=== PATIENT | female | born 1960 | race African-American/Black ===

== ENCOUNTER 2020-04-07 13:09 | Outpatient (REF) | payer OTHER, SELFPAY ==
--- NOTE | 2020-04-07 | MM_ITS ---
EXAMINATION: MM SCREENING DIGITAL BREAST TOMOSYNTHESIS, BILATERAL CLINICAL INFORMATION: Screening. Asymptomatic. The lifetime risk of breast cancer based on the Tyrer-Cuzick Model is 10%. COMPARISON: Mammography: 04/02/2019, 03/18/2018, 02/11/2017 TECHNIQUE: Digital breast tomosynthesis is performed in both the craniocaudal and mediolateral oblique views along with computer-aided detection (CAD). Synthesized 2D images are generated from the tomosynthesis. FINDINGS: There are scattered areas of fibroglandular density (ACR BI-RADS breast composition Category b). Breast tissue composition borders on predominantly fatty. Background stromal densities are stable. Again, there is a dermal lesion at the posterior inferior left breast. Neither breast shows interval mass or architectural abnormality or abnormal calcifications. No significant changes. IMPRESSION: No mammographic evidence of malignancy. ASSESSMENT: BI-RADS 2: Benign RECOMMENDATION: Routine annual mammography screening. This patient's information was entered into a reminder system with a target due date for their next mammogram.
== END 2020-04-07 13:10 | disposition home or self-care (01) ==
LOC: HO.MAMMO 13:09
PROVIDERS: PCP Internal Medicine Geriatric Medicine; Visit Provider Internal Medicine Geriatric Medicine
DX: Z12.31 Encounter for screening mammogram for malignant neoplasm of breast (principal)
CPT/HCPCS: 77063; 77067; 78014

== ENCOUNTER 2020-06-06 15:17 | Outpatient (REF) | payer OTHER, SELFPAY ==
[2020-06-07 09:22] LABS: BV Int Neg Control Negative (Negative); BV Int Pos Control Positive (Positive)
[2020-06-11 04:29] LABS: CT PCR NOT DETECTED (Not Detect.); NG PCR NOT DETECTED (Not Detect.)
== END 2020-06-06 15:18 | disposition home or self-care (01) ==
LOC: HO.LAB 15:17
PROVIDERS: Visit Provider Advanced Practice Midwife
DX: N89.8 Other specified noninflammatory disorders of vagina (principal); N90.89 Other specified noninflammatory disorders of vulva and perineum
CPT/HCPCS: 87480; 87491; 87510; 87591; 87660; 99212

== ENCOUNTER 2020-06-15 13:54 | Outpatient (REF) | payer OTHER, SELFPAY ==
[2020-06-21 20:18] LABS: HPV mRNA E6/E7 rflx Not Detected (Not Detected)
== END 2020-06-15 13:55 | disposition home or self-care (01) ==
LOC: HO.LAB 13:54
PROVIDERS: Visit Provider Obstetrics & Gynecology
DX: Z01.419 Encounter for gynecological examination (general) (routine) without abnormal findings (principal); Z78.0 Asymptomatic menopausal state
CPT/HCPCS: 87624; 87625; 88142

== ENCOUNTER → 2020-07-29 10:38 | Outpatient (REF) | payer OTHER, SELFPAY ==
--- NOTE | 2020-07-29 10:46 | ECG_ITS ---
Test Reason : CP Blood Pressure : / mmHG Vent. Rate : 068 BPM Atrial Rate : 068 BPM P-R Int : 128 ms QRS Dur : 128 ms QT Int : 430 ms P-R-T Axes : 038 -45 023 degrees QTc Int : 457 ms Normal sinus rhythm Left axis deviation Right bundle branch block Abnormal ECG When compared with ECG of 15-JUL-2019 16:46, No significant change was found Referred By: Christiane Ashton Electronically Signed By:Diallo Martinez
== END ==
LOC: HO.CARD 10:38
PROVIDERS: Absent Provider Internal Medicine Geriatric Medicine; PCP Internal Medicine Geriatric Medicine; Visit Provider Registered Nurse
DX: K21.9 Gastro-esophageal reflux disease without esophagitis (principal); R07.9 Chest pain, unspecified; I45.10 Unspecified right bundle-branch block; R94.31 Abnormal electrocardiogram [ECG] [EKG]; R11.0 Nausea; R42 Dizziness and giddiness
CPT/HCPCS: 93005

== ENCOUNTER → 2020-08-31 12:39 | Outpatient (BNVA) | payer OTHER, SELFPAY | PROVIDERS: PCP Internal Medicine Geriatric Medicine; Visit Provider Obstetrics & Gynecology | DX: Z13.89 Encounter for screening for other disorder (principal) | CPT/HCPCS: Q3014 ==

== ENCOUNTER 2021-05-01 14:14 | Outpatient (REF) | payer OTHER, SELFPAY ==
--- NOTE | ~2021-05-01 | MM_ITS ---
EXAMINATION: MM SCREENING DIGITAL BREAST TOMOSYNTHESIS, BILATERAL CLINICAL INFORMATION: Screening. Asymptomatic. The lifetime risk of breast cancer based on the Tyrer-Cuzick Model is 10%. COMPARISON: Mammography: 04/07/2020, 04/02/2019, 03/18/2018 TECHNIQUE: Digital breast tomosynthesis is performed in both the craniocaudal and mediolateral oblique views along with computer-aided detection (CAD). Synthesized 2D images are generated from the tomosynthesis. FINDINGS: There are scattered areas of fibroglandular density (ACR BI-RADS breast composition Category b). There are no significant masses, abnormal calcifications, or other abnormalities. The axilla are unremarkable. There is a known chronic dermal lesion posterior 6:00 left breast, slightly larger on current exam, measuring 1.4 cm compared with 1.0 cm in 2018. MM/MM tomosynthesis screening BI IMPRESSION: 1. No mammographic evidence of malignancy. 2. Chronic dermal lesion posterior inferior left breast. ASSESSMENT: BI-RADS 2: Benign RECOMMENDATION: 1. Dermal lesion may be managed based on the clinical impression as needed. 2. Otherwise, routine annual mammography screening. This patient's information was entered into a reminder system with a target due date for their next mammogram.
== END 2021-05-01 14:15 | disposition home or self-care (01) ==
LOC: HO.MAMMO 14:14
PROVIDERS: PCP Internal Medicine Geriatric Medicine; Visit Provider Internal Medicine Geriatric Medicine
DX: Z12.31 Encounter for screening mammogram for malignant neoplasm of breast (principal)
CPT/HCPCS: 77063; 77067

== ENCOUNTER → 2021-06-20 13:49 | Outpatient (BNVA) | payer OTHER, SELFPAY | PROVIDERS: PCP Internal Medicine Geriatric Medicine; Visit Provider Obstetrics & Gynecology ==

== ENCOUNTER → 2022-02-20 15:24 | Outpatient (BNVA) | payer OTHER, SELFPAY | PROVIDERS: PCP Internal Medicine Geriatric Medicine; Visit Provider Surgery | DX: N60.02 Solitary cyst of left breast (principal); L72.0 Epidermal cyst; Z79.899 Other long term (current) drug therapy | CPT/HCPCS: 99202 ==

== ENCOUNTER 2022-03-21 05:55 | Day surgery (SDC) | payer OTHER, SELFPAY ==
[2022-03-15 16:41] VITALS: BMI 30.1
[2022-03-21] VITALS (9 sets, daily range): BP systolic 121–144; BP diastolic 67–96; PULSE 54–71; RESP 12–17; TEMP 36.1–36.7; O2SAT 97–100; BMI 29.9
[2022-03-21] MEDS: Lactated Ringers 1,000 ML 100 ML IVCONT (06:48)
--- NOTE | 2022-03-21 07:20 | HO.ANESPROP2 ---
HPI - Anesthesia Eval Consult details Narrative: 61yo female patient for excision of cyst chest and cyst Left breast PMFSH Active Problems Active Problems: All Active Problems (Updated 03/21/22 @ 06:54 by Linda Baer) Vaginal itching (Acute) Vaginal discharge (Acute) Vulvar irritation (Acute) Well woman exam (Acute) Lump of skin (Acute) Cystocele with rectocele (Acute) Epidermal inclusion cyst (Acute) SUZAN. Uses CPAP machine Past Medical History Medical History Asthma Cataract High cholesterol History of anxiety History of depression Hypertension Migraine headache On beta vaishnavi at home Family History Family History Sister History of breast cancer Family history of problems with anesthesia: No Surgical History Surgical History History of cataract removal with insertion of prosthetic lens Hx of tubal ligation History of Problems with Anesthesia: No Social History Social History Alcohol intake: never Patient Tobacco Use Status: Never used Tobacco Use of substances other than those prescribed or required for medical reasons: No Are you DNR?: No Advance Directives: No Advance Directives Information Provided: Yes Sexual orientation: Straight/Heterosexual Gender identity: Female Meds Allergies Allergy/AdvReac Type Severity Reaction Status Date / Time lisinopril [LISINOPRIL] Allergy Unknown COUGH Verified 03/21/22 06:04 Active Medications: Current Medications Lactated Ringer's (Lr) 1,000 mls @ 100 mls/hr IVCONT .Q10H COTY Last Admin: 03/21/22 06:48 Dose: 100 mls/hr Home Medications Medication Instructions Recorded Confirmed Last Taken Type albuterol sulfate 90 mcg/actuation 90 mcg inhalation PRN Wheezing 06/06/20 02/20/22 03/21/22 05:15 History aerosol inhaler buspirone 10 mg tablet 5 mg PO BID 06/06/20 03/15/22 03/21/22 05:15 History fluticasone propionate 50 2 spray intranasal DAILY 06/06/20 03/15/22 Unknown History mcg/actuation nasal spray,suspension loratadine 10 mg tablet 10 mg PO DAILY 06/06/20 03/15/22 Unknown History losartan 50 mg tablet 50 mg PO DAILY 06/06/20 03/21/22 03/20/22 23:30 History meclizine 12.5 mg tablet 12.5 mg PO TID 06/06/20 03/15/22 Unknown History metoprolol succinate 25 mg 25 mg PO DAILY 06/06/20 03/15/22 03/21/22 05:15 History tablet,extended release 24 hr montelukast 10 mg tablet 10 mg PO DAILY 06/06/20 03/15/22 Unknown History pravastatin 40 mg tablet 40 mg PO DAILY 06/06/20 03/15/22 Unknown History sertraline 100 mg tablet 50 mg PO DAILY 06/06/20 03/15/22 03/21/22 05:15 History acetaminophen 500 mg capsule 500 mg PO Q6H PRN Pain 06/20/21 03/15/22 03/21/22 05:15 History Exam Exam Date and Time: March 21, 2022 0720 Height,Weight and Vital Signs: Height 5 ft 5 in Weight 81.647 kg Last Vital Signs Temp 98.0 F 03/21/22 06:06 Pulse 71 03/21/22 06:06 Resp 16 03/21/22 06:06 BP 144/96 H 03/21/22 06:06 Pulse Ox 98 03/21/22 06:06 O2 Del Method 03/21/22 06:06 Airway Mallampati Class: II TM Dist: >3cm Neck ROM: Full Loose/Missing/Broken Teeth: Yes (Missing 1 top right, 1 bottom right) Heart: RRR Lungs: CTAB Assessment and Plan Assessment Anesthesia Assessment: Anesthesia Plan Discussed and Chart Reviewed Final Anesthetic Review Family History of Problems with Anesthesia: No History of Problems with Anesthesia: No NPO: Yes ASA Class: III Final Preanesthetic Review: No Changes in Pt Med Stat, Meds/Allgs Chart Reviewed, Consent Obtained/Reviewed and Anes Risks/Benef Reviewed Patient Risk: Intermediate Procedure Risk: Low Assessment/Block/Sedation in SS: Assess/Block/Sedation-SS Anesthetic Plan Anesthetic Plan: GA Disposition: Standard PACU
--- NOTE | 2022-03-21 08:37 | P.OP_ITS ---
Operative Note Operative Note Date of Service: 03/21/22 Narrative: Preoperative diagnosis: Cyst of mid chest and left chest Postoperative diagnosis: same Procedure: excision of cyst mid chest and left chest Surgeon: Jayden Campo MD Novelty Balloon Assembler And Packer: EMELYN Rodrigues Anesthesia: general LMA Indications for procedure: 61-year-old female presenting with a gradually enlarging cyst which is painful located in the mid chest over the sternum and below the left breast in the chest wall left side. Operative findings: Inflammatory changes noted mid chest wall lesion in the surrounding fat. No evidence of abscess however. Both lesions measured approximately 2 cm in diameter. Specimen: Cyst mid chest and left chest wall Estimated blood loss: 5 mL Complications: none Procedure details: patient was brought to the OR placed in a supine position. After administering general anesthesia the patient's chest was prepped with ChloraPrep and draped in a sterile fashion. A surgical time-out was called the consent confirmed. Patient received preoperative antibiotics and Venodyne boots were in place. Local anesthesia was used to anesthetize both locations. Beginning in the mid chest elliptical incision oriented longitudinally was then created. A small dermal nevus was also overlying the cyst was included in the excision. Incision was carried out through subcutaneous tissue and around the cyst wall. the lesion was completely excised and sent to pathology for further examination. After assuring adequate hemostasis with electrocautery the deep subcutaneous tissue and dermis reapproximated using interrupted 3-0 Polysorb sutures. Skin was then closed using interrupted 4-0 nylon sutures. Attention was then directed to the left chest were again elliptical incision was created oriented transversely. Incision was carried out through subcutaneous tissue and around the cyst wall. The cyst was completely excised and sent to pathology for further examination. Hemostasis was assured using electrocautery. Dermis was then reapproximated using interrupted 3-0 Polysorb sutures. Skin was closed using interrupted 4-0 nylon sutures. Sterile dressings were then applied. The patient tolerated the procedure well. Sponge, instrument, and needle counts reported as correct. The patient was transferred to PACU in stable condition.
== END 2022-03-21 11:20 | disposition home or self-care (01) ==
PROVIDERS: PCP Surgery; Visit Provider Surgery
PROC: (CPT 11402; principal; 2022-03-21 07:30)
DX: L72.0 Epidermal cyst (principal); D23.9 Other benign neoplasm of skin, unspecified; I10 Essential (primary) hypertension; E78.00 Pure hypercholesterolemia, unspecified; J45.909 Unspecified asthma, uncomplicated; Z79.51 Long term (current) use of inhaled steroids; Z79.899 Other long term (current) drug therapy; Z88.8 Allergy status to other drugs, medicaments and biological substances
CPT/HCPCS: 11402 ×2; 88304; 88305; J0690; J2250; J2370; J2405; J2795; J3010

== ENCOUNTER 2022-05-07 11:21 | Outpatient (REF) | payer OTHER, SELFPAY ==
--- NOTE | ~2022-05-07 | MM_ITS ---
EXAMINATION: MM SCREENING DIGITAL BREAST TOMOSYNTHESIS, BILATERAL CLINICAL INFORMATION: Screening. Asymptomatic. COMPARISON: Mammography: May 01, 2021 and studies dating back to January 27, 2016 TECHNIQUE: Digital breast tomosynthesis is performed in both the craniocaudal and mediolateral oblique views along with computer-aided detection (CAD). Synthesized 2D images are generated from the tomosynthesis. FINDINGS: There are scattered areas of fibroglandular density (ACR BI-RADS breast composition Category b). There are no significant masses, abnormal calcifications, or other abnormalities. MM/MM tomosynthesis screening BI IMPRESSION: No significant changes from prior exam. ASSESSMENT: BI-RADS 1: Negative RECOMMENDATION: Routine annual mammography screening. This patient's information was entered into a reminder system with a target due date for their next mammogram.
== END 2022-05-07 11:22 | disposition home or self-care (01) ==
LOC: HO.MAMMO 11:21
PROVIDERS: PCP Internal Medicine Geriatric Medicine; Visit Provider Internal Medicine Geriatric Medicine
DX: Z12.31 Encounter for screening mammogram for malignant neoplasm of breast (principal); R10.2 Pelvic and perineal pain; N95.2 Postmenopausal atrophic vaginitis
CPT/HCPCS: 77063; 77067; 99212

== ENCOUNTER 2022-05-07 13:20 | Outpatient (REF) | payer OTHER, SELFPAY ==
[2022-05-07 17:14] LABS: CT PCR NOT DETECTED (Not Detect.); NG PCR NOT DETECTED (Not Detect.)
[2022-05-08 10:31] LABS: BV Int Neg Control Negative (Negative); BV Int Pos Control Positive (Positive)
== END 2022-05-07 13:21 | disposition home or self-care (01) ==
LOC: HO.LNP 13:20
PROVIDERS: Visit Provider Obstetrics & Gynecology
DX: Z11.3 Encounter for screening for infections with a predominantly sexual mode of transmission (principal); R10.2 Pelvic and perineal pain; N95.2 Postmenopausal atrophic vaginitis
CPT/HCPCS: 87480; 87491; 87510; 87591; 87660

== ENCOUNTER 2022-05-22 13:37 | Outpatient (REF) | payer OTHER, SELFPAY ==
--- NOTE | ~2022-05-22 | US_ITS ---
EXAMINATION: US PELVIS COMPLETE CLINICAL INFORMATION: Pelvic pain COMPARISON: None TECHNIQUE: Transabdominal and transvaginal imaging was performed. FINDINGS: The uterus is of normal size and echogenicity measuring 7.3 x 3.0 x 4.0 cm. A regular homogeneous endometrium is identified measuring 0.3 cm. . Both ovaries are of normal size and echogenicity. The right measures 2.7 x 1.4 x 1.6 cm for a volume of 3.1 mL. The left measures 1.7 x 1.1 x 1.3 cm for a volume of 1.3 mL. There is no pelvic free fluid. US/US pelvic and transvaginal IMPRESSION: Unremarkable pelvic ultrasound.
== END 2022-05-22 13:38 | disposition home or self-care (01) ==
LOC: HO.HMGCX 13:37
PROVIDERS: PCP Internal Medicine Geriatric Medicine; Visit Provider Obstetrics & Gynecology
DX: R10.2 Pelvic and perineal pain (principal)
CPT/HCPCS: 76830; 76856

== ENCOUNTER → 2022-06-05 14:45 | Outpatient (BNVA) | payer OTHER, SELFPAY | PROVIDERS: PCP Internal Medicine Geriatric Medicine; Visit Provider Obstetrics & Gynecology | DX: R10.2 Pelvic and perineal pain (principal) | CPT/HCPCS: 99212 ==

== ENCOUNTER → 2022-07-03 11:50 | Outpatient (BNVA) | payer OTHER, SELFPAY | PROVIDERS: PCP Internal Medicine Geriatric Medicine; Visit Provider Surgery | DX: Z48.817 Encounter for surgical aftercare following surgery on the skin and subcutaneous tissue (principal); L91.0 Hypertrophic scar | CPT/HCPCS: 99212 ==

== ENCOUNTER → 2022-07-19 13:44 | Outpatient (BNVA) | payer OTHER, SELFPAY | PROVIDERS: PCP Internal Medicine Geriatric Medicine; Visit Provider Surgery | DX: L91.0 Hypertrophic scar (principal) | CPT/HCPCS: 99212 ==

== ENCOUNTER 2022-10-25 11:32 | Outpatient (REF) | payer OTHER, SELFPAY ==
[2022-10-26 11:05] LABS: BV Int Neg Control Negative (Negative); BV Int Pos Control Positive (Positive)
== END 2022-10-25 11:33 | disposition home or self-care (01) ==
LOC: HO.LAB 11:32
PROVIDERS: PCP Internal Medicine Geriatric Medicine; Visit Provider Advanced Practice Midwife
DX: Z01.411 Encounter for gynecological examination (general) (routine) with abnormal findings (principal); L29.9 Pruritus, unspecified; N89.8 Other specified noninflammatory disorders of vagina; N95.1 Menopausal and female climacteric states
CPT/HCPCS: 87480; 87510; 87660

== ENCOUNTER 2023-05-07 14:53 | Outpatient (REF) | payer OTHER, SELFPAY ==
[2023-05-07 16:43] LABS: Anion Gap 11 (12-20); Blood Urea Nitrogen 12 mg/dL (9-16); Calcium 9.6 mg/dL (8.4-10.2); Carbon Dioxide 29 mmol/L (22-29); Chloride 108 mmol/L (96-108); Estimated Glomerular Filt Rate > 60; Glucose Random 82 mg/dL (60-115); Potassium 4.4 mmol/L (3.3-5.1); Sodium 144 mmol/L (135-145)
== END 2023-05-07 14:54 | disposition home or self-care (01) ==
LOC: HO.HHCL 14:53
PROVIDERS: Visit Provider Internal Medicine Geriatric Medicine
DX: I10 Essential (primary) hypertension (principal)
CPT/HCPCS: 36415; 80048

== ENCOUNTER 2023-05-08 13:29 | Outpatient (REF) | payer OTHER, SELFPAY ==
--- NOTE | ~2023-05-08 | MM_ITS ---
EXAMINATION: MM SCREENING DIGITAL BREAST TOMOSYNTHESIS, BILATERAL CLINICAL INFORMATION: Screening. Asymptomatic. COMPARISON: Mammography: This study is compared with prior exams dating back to 2017. TECHNIQUE: Digital breast tomosynthesis is performed in both the craniocaudal and mediolateral oblique views along with computer-aided detection (CAD). Synthesized 2D images are generated from the tomosynthesis. FINDINGS: The breasts are almost entirely fatty (ACR BI-RADS breast composition Category a). There are no significant masses, abnormal calcifications, or other abnormalities. MM/MM tomosynthesis screening BI IMPRESSION: No mammographic evidence of malignancy. ASSESSMENT: BI-RADS BI-RADS 1 - Negative RECOMMENDATION: Routine annual mammography screening. 1 year F/U This examination should not preclude the clinical evaluation of a suspicious palpable abnormality. This patient's information was entered into a reminder system with a target due date for their next mammogram.
== END 2023-05-08 13:30 | disposition home or self-care (01) ==
LOC: HO.MAMMO 13:29
PROVIDERS: PCP Internal Medicine Geriatric Medicine; Visit Provider Internal Medicine Geriatric Medicine
DX: Z12.31 Encounter for screening mammogram for malignant neoplasm of breast (principal)
CPT/HCPCS: 77063; 77067

== ENCOUNTER → 2023-05-08 13:30 | Outpatient (BNV) | payer OTHER, SELFPAY | PROVIDERS: PCP Internal Medicine Geriatric Medicine; Visit Provider Radiology Diagnostic Radiology | DX: Z12.31 Encounter for screening mammogram for malignant neoplasm of breast (principal) | CPT/HCPCS: 77063; 77067 ==

== ENCOUNTER 2023-07-26 16:13 | Outpatient (REF) | payer OTHER, SELFPAY ==
--- NOTE | ~2023-07-26 | XR_ITS ---
EXAMINATION: XR FINGER, LEFT CLINICAL INFORMATION: Thumb pain since Saturday COMPARISON: None available. TECHNIQUE: 3 views of the left thumb. FINDINGS: There is mild loss of first carpometacarpal joint space without bony erosive changes or an enthesophyte. There is no acute fracture, dislocation or subluxation. The soft tissues are normal. XR/XR finger LT min 2V IMPRESSION: Mild degenerative changes first carpometacarpal joint. No visible acute fracture or dislocation seen.
== END 2023-07-26 16:14 | disposition home or self-care (01) ==
LOC: HO.HHCX 16:13
PROVIDERS: Visit Provider Internal Medicine
DX: M79.645 Pain in left finger(s) (principal); G89.29 Other chronic pain
CPT/HCPCS: 73140

== ENCOUNTER 2023-09-20 16:18 | Outpatient (REF) | payer OTHER, SELFPAY ==
[2023-09-20 18:11] LABS: Basophils Percent Auto 0.4 % (0-2); Eosinophils Absolute Auto 0.8 X10*3/uL (0.0-0.4); Hematocrit 43.1 % (37.0-47.0); Hemoglobin 13.6 g/dl (12.0-16.0); Imm Gran Abs Auto 0.02 X10*3/uL (0.00-0.03); Imm Gran Pct Auto 0.3 % (0.0-0.4); Lymphocytes Absolute Auto 1.7 X10*3/uL (1.2-4.9); Lymphocytes Percent Auto 23.8 % (20-40); MANUAL DIFF FLAG NO; Mean Corpuscular HGB Conc 31.6 g/dl (31.0-35.0); Mean Corpuscular Hemoglobin 25.8 pg (27.0-33.0); Mean Corpuscular Volume 81.8 fL (80.0-98.0); Mean Platelet Volume 10.3 fL (9.4-12.3); Monocytes Absolute Auto 0.6 X10*3/uL (0.1-1.2); Neutrophils Absolute Auto 4.1 x10*3/uL (2.0-8.3); Neutrophils Percent Auto 56.5 % (45-73); Platelet Count 332 X10*3/uL (160-400); Red Blood Count 5.27 X10*6/uL (4.20-5.50); Red Cell Distribution Width 14.7 % (11.0-16.0); White Blood Count 7.3 X10*3/uL (4.8-10.8)
[2023-09-20 18:25] LABS: Alanine Aminotransferase 15 U/L (0-31); Albumin Level 4.4 g/dL (3.5-5.0); Alkaline Phosphatase 126 U/L (39-117); Anion Gap 14 (12-20); Aspartate Amino Transferase 14 U/L (5-31); Bilirubin Total 0.3 mg/dL (0.0-1.0); Blood Urea Nitrogen 14 mg/dL (9-16); Calcium 9.9 mg/dL (8.4-10.2); Carbon Dioxide 27 mmol/L (22-29); Chloride 106 mmol/L (96-108); Estimated Glomerular Filt Rate > 60; Glucose Random 95 mg/dL (60-115); Potassium 4.8 mmol/L (3.3-5.1); Sodium 142 mmol/L (135-145); Total Protein 7.8 g/dL (6.5-8.0)
[2023-09-20 18:43] LABS: TSH reflex Free T4 2.43 uIU/mL (0.32-4.0)
== END 2023-09-20 16:19 | disposition home or self-care (01) ==
LOC: HO.HHCL 16:18
PROVIDERS: Visit Provider Internal Medicine Geriatric Medicine
DX: F43.21 Adjustment disorder with depressed mood (principal); R53.83 Other fatigue; J30.2 Other seasonal allergic rhinitis; G43.809 Other migraine, not intractable, without status migrainosus
CPT/HCPCS: 36415; 80053; 84443; 85025

== ENCOUNTER 2023-10-29 11:30 | Outpatient (AMB) | payer OTHER, SELFPAY ==
--- NOTE | 2023-10-29 11:34 | MHC.OFFVIS ---
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 She is doing well with no concerns. Attempting to eat a healthy diet with calcium and vitamin D and stays active with exercise w/walking. Currently sexually active. Denies any vaginal dryness, has external itching. STI testing offered; she declines. Last pap smear; 2019. Last mammogram; 2022. Colonoscopy is UTD. Denies any family history of ovarian or colon cancer. FH breast cancer-sister. [facility] Medical History Cataract On beta vaishnavi at home Migraine headache High cholesterol Asthma Hypertension History of depression History of anxiety Surgical History History of excision of epidermal inclusion cyst (03/21/22) History of cataract removal with insertion of prosthetic lens Hx of tubal ligation Family History (Updated 10/29/23 @ 11:44 by CHON Rosario) Sister History of breast cancer Sister Primary cancer of bone marrow Social History Alcohol intake: never Patient Tobacco Use Status: Never used Tobacco Sexual orientation: Straight/Heterosexual Gender identity: Female Female Reproductive History Menstrual Age of Menarche: 11 control method: permanent sterilization Permanent Sterilization: BTL Menopause type: natural Total pregnancies: 5 Full term: 5 Number of Living Children: 5 Date of last pap smear: 06/15/20 (neg pap and hpv) Date of Mammogram: 05/08/23 (Birad 1) Review of Systems Const All systems reviewed & are unremarkable except as noted in HPI and below Reports as per HPI Eyes Reports no additional complaints ENT Reports no additional complaints Card Reports no additional complaints Resp Reports no additional complaints GI Reports as per HPI and Reports no additional complaints Reports as per HPI Musc Reports no additional complaints Skin/Breast Reports as per HPI Neuro Reports no additional complaints Psych Reports no additional complaints Endo Reports no additional complaints Anil/Lymph Reports no additional complaints Aller/Immun Reports no additional complaints Physical Exam Vital Signs: Last Vital Signs BP 130/86 10/29/23 11:36 BMI result Body Mass Index 30.6 Const General: cooperative, healthy appearing, no acute distress, well developed and alert Orientation/consciousness: patient oriented x3 HEENT Head: Yes normal to inspection Eyes General: appearance normal, both eyes and all related structures Neck Neck: Yes normal visual inspection Thyroid: Thyroid normal Chest Chest palpation & inspection: normal inspection of the chest and other (no puckering, dimpling, peau de orange, retraction, discharge, masses) Breast/axilla inspection: normal inspection of the breasts Breast/axilla palpation: normal palpation of the breasts Resp Effort & Inspection: normal respiratory effort GI Inspection: Yes normal to inspection Palpation (GI): Soft to palpation Rectal Exam - Female: deferred General: Yes bladder normal to palpation External Female Exam: normal external appearance and normal appearance of the urethra Speculum Exam - Vagina: normal appearance of the vagina, normal palpation, normal vaginal discharge and vagina atrophic Speculum Exam - Cervix: normal appearance of the cervix and normal palpation Bimanual exam- vagina & uterus: normal bimanual exam, normal palpation, uterine size normal, bladder normal to palpation, normal palpation and non-tender Bimanual Exam- Adnexa, other: no masses Skin General skin exam: no rashes or lesions noted Rashes: no rashes Neuro General: patient oriented x3 Cognition (Neuro): normal cognition Extrem General: Yes normal to inspection Psych Attitude: cooperative Thought process: Normal thought process present Assessment & Plan Assessment & Plan (1) Encounter for well woman exam with routine gynecological exam: Code(s): Z01.419 - Encounter for gynecological examination (general) (routine) without abnormal findings Plan Discussed: Current recommendations for pap smears per ASCCP guidelines. Breast awareness, periodic self breast exams and yearly mammogram. Maintain a healthy lifestyle, well balanced diet including Calcium 1,200 mg and Vitamin D 600 IU daily, and routine exercise. Contact the office with any postmenopausal bleeding. Patient verbalizes understanding and agrees to the plan of care. She was given opportunity to ask questions and all questions were answered to the best of my ability. RTO in 1 year for annual primer and powder canning leader exam. This note is constructed using voice recognition software. While every effort has been made to ensure accuracy, carrier associate errors may have been included. Coding Level of Care Code New Pt Prev Care 40-64y(14939) Diagnoses Encounter for well woman exam with routine gynecological exam Z01.419
[2023-10-29 11:36] VITALS: BP 130/86; BMI 30.6
== END 2023-10-29 12:58 | disposition home or self-care (01) ==
LOC: HO.HWS 11:30
PROVIDERS: PCP Internal Medicine Geriatric Medicine; Visit Provider Advanced Practice Midwife
DX: Z01.419 Encounter for gynecological examination (general) (routine) without abnormal findings (principal)
CPT/HCPCS: 99396

== ENCOUNTER → 2023-10-29 11:30 | Outpatient (BNVA) | payer OTHER, SELFPAY | PROVIDERS: PCP Internal Medicine Geriatric Medicine; Visit Provider Advanced Practice Midwife | DX: M18.12 Unilateral primary osteoarthritis of first carpometacarpal joint, left hand (principal); Z01.419 Encounter for gynecological examination (general) (routine) without abnormal findings | CPT/HCPCS: 20600; 99202; J1010 ==

== ENCOUNTER 2023-10-29 14:57 | Outpatient (AMB) | payer OTHER, SELFPAY ==
--- NOTE | 2023-10-29 15:20 | A.OFFVIS_ITS ---
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 States pain is mainly on CMC joint and started about 2-3 years ago and has worsen. No injury. States her pain worsen with gripping and grasping or even chopping veggies. Denies numbness or tingling. Patient would like to discuss injection vs surgical intervention. 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 She complains of pain at the base of her thumb, worse with pinching or gripping activities. She says even chopping vegetables causes her pain. This has been present for several years now. She denies any prior treatment options She denies any numbness or tingling. [facility] Medical History Cataract On beta vaishnavi at home Migraine headache High cholesterol Asthma Hypertension History of depression History of anxiety Surgical History History of excision of epidermal inclusion cyst (03/21/22) History of cataract removal with insertion of prosthetic lens Hx of tubal ligation Family History (Updated 10/29/23 @ 11:44 by CHON Rosario) Sister History of breast cancer Sister Primary cancer of bone marrow Social History (Updated 10/29/23 @ 15:35 by BLACK Meredith) Alcohol intake: never Patient Tobacco Use Status: Never used Tobacco Current occupational status: unemployed 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 Sexual orientation: Straight/Heterosexual Gender identity: Female Female Reproductive History Menstrual Age of Menarche: 11 Review of Systems Const All systems reviewed & are unremarkable except as noted in HPI and below Physical Exam Vital Signs: BMI result Body Mass Index 30.6 Const General: cooperative, healthy appearing and no acute distress Orientation/consciousness: patient oriented x3 HEENT Head: Yes normocephalic and Yes atraumatic Eyes EOM: EOMs intact bilaterally Resp Effort & Inspection: normal respiratory effort and able to speak in complete sentences Cardio Jugular venous distension: no JVD Skin General skin exam: turgor normal Rashes: no rashes Neuro General: patient oriented x3 Extrem Other: Evaluation of Left Upper Extremity: The patient is alert, oriented, and in no acute distress Neuro: Median, Ulnar, Radial nerves motor and sensory intact and sensation is normal to the tips of all digits Vascular: Cap refill brisk ROM: She can make a fist and extend all her digits Skin: No lacerations or abrasions. General: No Ecchymosis. No Erythema or evidence of infection. Most tender over the basal joint + Shoulder sign + CMC grind No tenderness over the 1st dorsal compartment No tenderness over the MCP joint No tenderness over the a1 daniela Radiographs: 3 views of the left thumb form 07/26/23 were reviewed by me today in clinic. They show some basal joint arthritis with osteophyte formation, joint space narrowing, and subchondral sclerosis. Psych Appearance: grossly normal Affect: normal affect Attitude: cooperative Office Procedures Fracture Care Details: No fracture, injection Fracture Billing Code: Fracture Billing Code Assessment & Plan Assessment & Plan (1) Osteoarthritis of carpometacarpal (CMC) joint of left thumb: Code(s): M18.12 - Unilateral primary osteoarthritis of first carpometacarpal joint, left hand Category: Medical Plan Assessment & Plan: 1. Left basal joint arthritis I educated her about this condition I discussed operative and non-operative treatment options The patient would like to proceed with an injection I discussed activity modification, she should limit or avoid any heavy or repetitive pinching or gripping activities I discussed the use of assistive devices or gadgets, particularly in the kitchen She was fitted for a comfort cool brace to wear with daily activity Injection #1 : The risks and benefits of a steroid injection including but not limited to risk of damage to blood vessels, nerve, tendon, infection, skin bleaching, persistent or worsening pain, and failure to improve symptoms were discussed with the patient and they wish to proceed with the steroid injection. Once consent was obtained the skin over the dorsum of the Left basal joint was sterilely prepped. The joint was then injected with a combination of 1 mL of (40 mg/ml} Depo-Medrol and 1% plain Lidocaine. The patient appears to have tolerated the procedure well and with no complications. She had good early relief before leaving clinic today. She knows that they may not have another steroid injection into this joint for least 4 months. She is happy with the current plan. She may follow-up p.r.n. Scribed for Kim Lopez MD by Viktor Foote, certified medical technician, on 10/29/23 at 4:00 PM, EST. Coding Level of Care Code New Pt Level 3 (80846) Diagnoses Osteoarthritis of carpometacarpal (CMC) joint of left thumb M18.12 CPT Codes Fracture Care - Fracture Billing Code: Fracture Billing Code ([id number])
[2023-10-29 15:22] VITALS: BMI 30.6
== END 2023-10-29 16:07 | disposition home or self-care (01) ==
PROVIDERS: PCP Internal Medicine Geriatric Medicine; Visit Provider Orthopaedic Surgery
DX: M18.12 Unilateral primary osteoarthritis of first carpometacarpal joint, left hand (principal)
CPT/HCPCS: 20600; 99203

== ENCOUNTER 2024-03-19 10:16 | Outpatient (REF) | payer OTHER, SELFPAY ==
--- NOTE | ~2024-03-19 | XR_ITS ---
EXAMINATION: XR LUMBOSACRAL SPINE CLINICAL INFORMATION: Chronic low back pain without sciatica COMPARISON: None available. TECHNIQUE: Three views of the lumbosacral spine. FINDINGS: Mild degenerative changes are noted in the spine most marked at L1-L2 and L5-S1 where there is marked grade 1 anterolisthesis of L5 upon S1. Is also mild disc space narrowing at L4-L5. There is generalized osteopenia. Vertebral body heights are well-maintained. No bony destructive lesions. XR/XR lumbar spine 2-3V IMPRESSION: Degenerative changes as described above with grade 1 anterolisthesis of L5 upon S1. Electronically signed by: Devin Phillips MD 03/19/2024 01:49 PM EDT RP
== END 2024-03-19 10:17 | disposition home or self-care (01) ==
LOC: HO.HHCX 10:16
PROVIDERS: Visit Provider Student in an Organized Health Care Education/Training Program
DX: M54.50 Low back pain, unspecified (principal); G89.29 Other chronic pain
CPT/HCPCS: 72100

== ENCOUNTER 2024-03-20 11:42 | Outpatient (REF) | payer OTHER, SELFPAY ==
[2024-03-20 16:57] LABS: Anion Gap 10 (12-20); Blood Urea Nitrogen 18 mg/dL (9-16); Calcium 10.1 mg/dL (8.4-10.2); Carbon Dioxide 29 mmol/L (22-29); Chloride 105 mmol/L (96-108); Cholesterol 213 mg/dL (<200); Estimated Glomerular Filt Rate > 60; Glucose Random 101 mg/dL (60-115); HDL Cholesterol 41 mg/dL (>40); LDL Cholesterol Calculated 138 mg/dL (<100); Potassium 4.4 mmol/L (3.3-5.1); Sodium 140 mmol/L (135-145); Triglycerides 173 mg/dL (<150)
== END 2024-03-20 11:43 | disposition home or self-care (01) ==
LOC: HO.HHCL 11:42
PROVIDERS: Visit Provider Internal Medicine Geriatric Medicine
DX: I10 Essential (primary) hypertension (principal); Z78.9 Other specified health status
CPT/HCPCS: 36415; 80048; 80061

== ENCOUNTER 2024-05-13 13:59 | Outpatient (REF) | payer OTHER, SELFPAY ==
--- NOTE | ~2024-05-13 | MM_ITS ---
EXAMINATION: MM SCREENING DIGITAL BREAST TOMOSYNTHESIS, BILATERAL CLINICAL INFORMATION: Screening. Asymptomatic. COMPARISON: Mammography: Comparison is made with available priors TECHNIQUE: Digital breast mammography with tomosynthesis is performed in both the craniocaudal and mediolateral oblique views along with computer-aided detection (CAD). FINDINGS: There are scattered areas of fibroglandular density (ACR BI-RADS breast composition Category b). There are no significant masses, abnormal calcifications, or other abnormalities. MM/MM tomosynthesis screening BI IMPRESSION: No mammographic evidence of malignancy. ASSESSMENT: BI-RADS BI-RADS 1 - Negative RECOMMENDATION: Routine annual mammography screening. 1 year F/U This examination should not preclude the clinical evaluation of a suspicious palpable abnormality. This patient's information was entered into a reminder system with a target due date for their next mammogram. Electronically signed by: Samantha Payton DO 05/22/2024 08:45 AM CHARLENE
== END 2024-05-13 14:00 | disposition home or self-care (01) ==
LOC: HO.MAMMO 13:59
PROVIDERS: PCP Internal Medicine Geriatric Medicine; Visit Provider Internal Medicine Geriatric Medicine
DX: Z12.31 Encounter for screening mammogram for malignant neoplasm of breast (principal)
CPT/HCPCS: 77063; 77067

== ENCOUNTER → 2024-05-13 14:00 | Outpatient (BNV) | payer OTHER, SELFPAY | PROVIDERS: PCP Internal Medicine Geriatric Medicine; Visit Provider Internal Medicine | DX: Z12.31 Encounter for screening mammogram for malignant neoplasm of breast (principal) | CPT/HCPCS: 77063; 77067 ==

== ENCOUNTER 2024-08-24 16:35 | Outpatient (REF) | payer OTHER, SELFPAY ==
--- OUTSIDE RECORDS SUMMARY | 2024-08-24 18:28 | XMS_ITS | Encounter Summary ---
Author Organization [employer] Address [address] [facility] 7t [place] [address] Care Team Providers Care Regulatory Affairs Intern Name Role Phone Name, Apolinar HAINES Primary Care Provider [phone] Encounter Details Date Type Department Care Team (Late st Contact Info) Description 11/16/2022 Abstract [facility] [address] [place] [address] [phone] Name, MD Apolinar [address] [place] [address] [phone] Social History Tobacco Use Types Packs/Day Years Used Date Smoking Tobacco: Never Smokeless Tobacco: Never Depression Answer Date Recorded Patient Health Questionnaire-9 Score 5 10/10/2022 Depression Answer Date Recorded Patient Health Questionnaire-2 Score 2 10/10/2022 Comments Unknown Sex and Gender Information Value Date Recorded Sex Assigned at Female 04/30/2022 10:29 AM EDT Legal Sex Female 10:29 AM EDT Gender Identity Female 04/30/2022 10:29 AM EDT Sexual Orientation Straight 04/30/2022 10 :29 AM EDT COVID-19 Exposure Response Date Recorded In the last 10 days, have mariposa otto been in contact with someone who was confirmed or suspected to have Coronavirus/COVID-19? No / Unsure 10/17/2022 12:40 PM EDT documented as of this encounter Plan of Treatment Upcoming Encounters Date Type Department Care Team (Late st Contact Info) Description 11/03/2024 3:30 PM EDT Office Visit [facility] [address] [place] [phone] NameApolinar MD [address] [place] [address] [phone] documented as of this encounter Procedures Procedure Name Priority Date/Time Associated Diagnosis Comments HM COLONOSCOPY Routine 08/14/2022 3:12 PM EST HM PAP/HPV Routine 06/15/2020 12:00 AM EST documented in this encounter Results * Hm Colonoscopy (08/14/2022 3:12 PM EST) Colonoscopy Normal Normal Narrative Prerna Judd - 08/14/2022 3:12 PM EST Recommended 5 year follow up us Historical Provider HEALTH MAINTENANCE Final Result * Hm Pap Smear (06/15/2020 12:00 AM EST) us Historical Provider HEALTH MAINTENANCE Final Result documented in this encounter Visit Diagnoses Not on filedocumented in this encounter Additional Health Concerns Assessment Noted Time PHQ-9 Depression Total Score: 5 10/11/19 23 4:18 PM EDT documented as of this encounter Care Teams Regulatory Affairs Intern Relationship Specialty Start Date End Date Name, MD Apolinar [address] [place] [phone] PCP - General Family Medicine 07/01/18 documented as of this encounter
--- OUTSIDE RECORDS SUMMARY | 2024-08-24 18:28 | XMS_ITS | Encounter Summary ---
Author Organization [employer] Address 75 [facility] 7t [place] [address] Care Team Providers Care Fur Dyer Name Role Phone Name, Apolinar HAINES Primary Care Provider [phone] Reason for Visit * Reason Comments Med Refill Encounter Details Date Type Department Care Team (Late st Contact Info) Description 11/16/2022 Refill [facility] MED[facility]INE [address] [place] [address] [phone] Name, MD Apolinar [address] [place] [address] [phone] Social History Tobacco Use Types Packs/Day Years [...] Description 11/03/2024 3:30 PM EDT Office Visit [facility] MEDICINE [address] [place] [address] [phone] Name, MD Apolinar [address] [place] [address] [phone] documented as of this encounter Visit Diagnoses Not on filedocumented in this encounter Additional Health Concerns Assessment Noted Time PHQ-9 Depression Total Score: 5 10/11/19 23 4:18 PM EDT documented as of this encounter Care Teams Fur Dyer Relationship Specialty Start Date End Date Name, MD Apolinar [address] [place] [address] PCP - General Family Medicine 07/01/18 documented as of this encounter
--- OUTSIDE RECORDS SUMMARY | 2024-08-24 18:28 | XMS_ITS | Encounter Summary ---
Author Organization [employer] Address [address] [facility] 7t [place] [address] Care Team Providers Care Chemist Organic Name Role Phone Name, Apolinar HAINES Primary Care Provider [phone] Encounter Details Date Type Department Care Team (Late Contact Info) Description 11/16/2022 Orders Only [facility] CHC MED & PEDS [address] [place], [place] [phone] Debbi Alas LPN Social History Tobacco Use Types Packs/Day Years [...] Description 11/03/2024 3:30 PM EDT Office Visit [facility] MEDICINE [address] [place], [place] [phone] Name, MD Apolinar [address] [place] [address] documented as of this encounter Visit Diagnoses Not on filedocumented in this encounter Additional Health Concerns Assessment Noted Time PHQ-9 Depression Total Score: 5 10/11/19 23 4:18 PM EDT documented as of this encounter Care Teams Chemist Organic Relationship Specialty Start Date End Date Name, MD Apolinar [address] [place] [address] PCP - General Family Medicine 07/01/18 documented as of this encounter
--- OUTSIDE RECORDS SUMMARY | 2024-08-24 18:28 | XMS_ITS | Clinical Summary ---
Author Organization [address] [place] [address] Address [address] [place] [address] Phone Care Team Providers Care Watch Train Assembler Name Role Phone Name, Apolinar HAINES Primary Care Provider [phone] Allergies Active Allergy Reactions Criticality Noted Date Comments Lisinopril 05/14/2011 Dry cough Medications fluticasone propion-salmete roL (ADVAIR DISKUS) 500-50 mcg/dose diskus inhaler Inhale 1 puff by mouth every 12 (twelve) hours. 1 Active meclizine (ANTIVERT) 12.5 mg tablet Take by mouth. Activ e SUMAtriptan (IMITREX) 100 mg tablet Take 100 mg by mouth daily as needed. May repeat dose once after 2 hours, if needed. Active metoprolol tartrate (LOPRESSOR) 25 mg tablet Take 25 mg by mouth 2 times daily Active prochlorperazin e (COMPAZINE) 10 mg tablet Take 10 mg by mouth every 6 hours as needed. Active busPIRone (BUSPAR) 5 mg tablet Take 5 mg by mouth 2 times daily. Active albuterol HFA (PROAIR HFA ; PROVENTIL HFA ; VENTOLIN HFA) 90 mcg/actuation inhaler Inhale 2 puffs by mouth every 4 (four) hours if needed. Active losartan (COZAAR) 25 mg tablet Take 1 tablet (25 mg total) by mouth 1 (one) time each day. Active pravastatin (PRAVACHOL) 40 mg tablet Take 1 tablet (40 mg total) by mouth 1 (one) time each day. 5 Active fluticasone propionate (FLONASE) 50 mcg/actuation nasal spray Administer 2 sprays into affected nostril(s) 1 (one) time each day. 5 Active sertraline (ZOLOFT) 50 mg tablet Take 1 tablet (50 mg total) by mouth 1 (one) time each day. 5 Active loratadine (CLARITIN) 10 mg tablet Take 1 tablet (10 mg total) by mouth 1 (one) time each day. 5 Active acetaminophen (TYLENOL) 325 mg tablet Take 650 mg by mouth every 6 hours as needed. Active Active Problems Problem Noted Date Diagnosed Date COPD (chronic obstructive pulmonary disease) 10/2017 History of Helicobacter pylori infection 018 HTN (hypertension) 07/11/2011 Vitamin D deficiency 05/21/2011 Allergic rhinitis 02/15/2011 Leg cramps, sleep related 02/24/2010 Degenerative arthritis of lumbar spine 0 Anxiety 08/12/2009 Low back pain 05/12/2009 Migraine 06/11/2008 High cholesterol 11/25/2007 Mild persistent asthma 08/15/2007 Immunizations Name Administration Dates Next Due Influenza trivalent, with preservative (Fluzone; Afluria) 6mo and older 04/14/2015,04/06/2014,03/10/2013,2011,03/15/2011,05/12/2010,04/29/2008 Tdap Tetanus diptheria acell ular pertussis (Boostrix; Adacel) 7yo and older 05/14/2011 Surgical History Surgery Date Site/Laterality Comments TUBAL LIGATION PROCEDURE: HISTORICAL TUBAL LIGATION Medical History Medical History Date Comments Unspecified essential hypertension DX:Unspecified essential hypertension Historical Medical DX 08/15/2007 DX:HTN COPD (chronic obstructive pu lmonary disease) ([facility]) 01/02/2018 DX:COPD (chronic obstructive pulmonary disease) ([facility]) History of Helicobacter pylo ri infection 01/02/2018 DX:History of Helicobacter p ylori infection Family History Medical History Relation Name Comments Breast cancer Sister Blindness Neg Hx Cataracts Neg Hx Glaucoma Neg Hx Macular degeneration Neg Hx Strabismus Neg Hx Relation Name Status Comments Father no problems Mother CVA Sister HTN, High quinton sterol, Asthma Social History Tobacco Use Types Packs/Day Years Used Date Smoking Tobacco: Never Smokeless Tobacco: Never Alcohol Use Standard Drinks/Week Comments No 0 (1 standard drink = 0.6 oz pur e alcohol) Comments Unknown Sex and Gender Information Value Date Recorded Sex Assigned at Not on file Legal Sex Female 4:57 AM EST Gender Identity Not on file Sexual Orientation Not on file Obstetrics History Last Filed Vital Signs Vital Sign Reading Time Taken Comments Blood Pressure 100/68 05/06/2024 2:54 PM EST Pulse 79 05/06/2024 2:54 PM EST Temperature 36.6 ??C (97.9 ??F) 05/06/2024 2:54 PM ES T Respiratory Rate 16 05/06/2024 2:54 PM EST Oxygen Saturation 97% 05/06/2024 2:54 PM EST Inhaled Oxygen Concentration - - Weight 82.4 kg (181 lb 9.6 oz) 05/06/2024 2:54 P M EST Height 165.1 cm (5' 5 ) 05/06/2024 2:54 PM EST Body Mass Index 30.22 05/06/2024 2:54 PM EST Plan of Treatment Upcoming Encounters Date Type Department Care Team (Late st Contact Info) Description 05/07/2025 2:15 PM EST Office Visit Pulmonolgy - [place] [address] [facility] [address] [place] [address] Zac Cerda MD [address] [facility] [address] [place] [address] Health Maintenance Due Date Last Done Comments Breast Cancer Screening 1960 RSV Immunization Patients 60+ Years Old (1 - Risk 60-74 years 1-dose series) 2018 Cervical Cancer Screening: Pap Smear 03/18/2020 03/18/2017, 03/18/2017 Colorectal Cancer Screening: Colonoscopy 06/09/2022 Medicare Annual Wellness Visit 06/09/2022 Osteoporosis Screening (Bone Density Screening) 06/09/2022 Social Influencers of Health Screening 06/09/2022 Falls Risk Assessment 11/11/2023 COVID-19 Vaccine ( season) 2024 10/15/2023, 10/17/2022, 02/21/2022, Additional history exists Depression Screening 03/13/2025 03/13/2024 Hypertension/CHF/CAD Annual BMP Blood Test 03/20/2025 03/20/2024, 06/01/2015 Cholesterol Screening (Lipid Panel) 03/20/2029 03/20/2024, 09/28/2014 DTaP,Tdap,and Td Vaccines (3 - Td or Tdap) 05/07/2033 05/07/2023, 05/14/2011 Hepatitis C Screening Completed 02/11/2012 Zoster Vaccines Completed 07/13/2020, 03/29/2020 Influenza Vaccine Completed 03/13/2024, , 05/22/2022, Additional history exists Pneumococcal Vaccine: 50+ Years Completed 03/13/2024, 05/13/2017 Pneumococcal Vaccine: Pediatrics (0 to 5 Years) and At-Risk Patients (6 to 64 Years) Completed 03/13/2024, 05/13/2017 HIB Vaccines Aged Out No longer eligi ble based on patient's age to complete this topic HPV Vaccines Aged Out No longer eligi ble based on patient's age to complete this topic Hepatitis A Vaccines Aged Out No long er eligible based on patient's age to complete this topic Hepatitis B Vaccines Aged Out No long er eligible based on patient's age to complete this topic IPV Vaccines Aged Out No longer eligi ble based on patient's age to complete this topic MMR Vaccines Aged Out No longer eligi ble based on patient's age to complete this topic Meningococcal ACWY Vaccine Aged Out N o longer eligible based on patient's age to complete this topic Meningococcal B Vacine Aged Out No lo nger eligible based on patient's age to complete this topic RSV Immunization Patients Under 20 months Aged Out No longer eligible based on patient's age to complete this topic Varicella Vaccines Aged Out No longer eligible based on patient's age to complete this topic Procedures Procedure Name Priority Date/Time Associated Diagnosis Comments HPV Routine 03/18/2017 ANNUAL BMP BLOOD TEST Routine 06/01/2015 LIPID PANEL Routine 09/28/2014 HEPATITIS C SCREENING Routine 02/11/2012 from Last 3 Months or Most Recently Relevant to Health Maintenance Results * Cervical Cancer Screening: HPV (03/18/2017) Cervical Cancer Screening: HPV Abstracted, negative Historical Provider HEALTH MAINTENANCE Final Result * Annual BMP Blood Test (06/01/2015) [facility] Annual BMP Blood Test Abstracted [facility] Provider HEALTH MAINTENANCE Final Result * (ABNORMAL) Lipid panel (09/28/2014) [facility] LDL/HDL Ratio 4 0 - 4 Triglycerides 142 0 - 150 mg/dL Cholesterol 203(A) 0 - 200 mg/dL HDL 54 >=40 mg/dL LDL Cholesterol 121(A) 0 - 100 mg/dL Blood Venous blood specimen / Unknown Result [facility] Provider LAB BLOOD ORDERABLES Viola l Result * Hepatitis C Screening (02/11/2012) [facility] Hepatitis C Screening Abstracted [facility] Provider HEALTH MAINTENANCE Final Result from Last 3 Months or Most Recently Relevant to Health Maintenance Insurance [employer] MEDICARE Member Subscriber Plan / Payer (Ef fective 2024-Present) Name:Kari Alvarado Relation to Subscriber:Self Name:Kari Alvarado Payer ID:[id number] Group ID:[id number] Type:Not on file Address: [address] [facility] [place] [address] Care Teams Watch Train Assembler Relationship Specialty Start Date End Date Name, MD Apolinar [address] [place], [place] PCP - General 08/14/07
--- OUTSIDE RECORDS SUMMARY | 2024-08-24 18:28 | XMS_ITS | Encounter Summary ---
Author Organization [employer] Address [address] [facility] 7t [place] [address] Care Team Providers Care Sewer Connector Name Role Phone Name, Apolinar HAINES Primary Care Provider [phone] Reason for Visit * Reason Comments Med Refill Encounter Details Date Type Department Care Team ([facility] st Contact Info) Description 06/25/2023 Refill [facility] MEDICINE [address] [place] [address] Name, MD Apolinar [address] [place], [place] [phone] Asthma, unspecified asthma severity, unspecified whether complicated, unspecified whether persistent Social History Tobacco Use Types Packs/Day Years Used Date Smoking Tobacco: Never Smokeless Tobacco: Never Alcohol Use Standard Drinks/Week Comments Never 0 (1 standard drink = 0.6 oz pur e alcohol) Depression Answer Date Recorded Patient Health Questionnaire-9 Score 5 10/10/2022 Housing Stability Answer Date Recorded What is your housing situation today? I have betty moser 04/16/[address] you li ve. Do you have problems with any of the following? None of the above 04/16/2023 Food Insecurity Answer Date Recorded Within the past 12 months, y ou worried that your food would run out before you got money to buy more: Never True 04/16/2023 Within the past 12 months,th e food you bought just didn't last and you didn't have enough money to get more: Never True Transportation Answer Date Recorded In the past 12 months, has l ack of transportation kept you from medical appts, meetings, work or from getting things needed for daily living? No 04/16/2023 Utilities Answer Date Recorded In the past 12 months, has t he electric, gas, oil or water company threatened to shut off services in your home? No 04/16/2023 Depression Answer Date Recorded Patient Health Questionnaire-2 Score 2 10/10/2022 Comments Unknown Sex and Gender Information Value Date Recorded Sex Assigned at Female 04/30/2022 10:29 AM EDT Legal Sex Female 10:29 AM EDT Gender Identity Female 04/30/2022 10:29 AM EDT Sexual Orientation Straight 04/30/2022 10 :29 AM EDT documented as of this encounter Plan of Treatment Upcoming Encounters Date Type Department Care Team (Late st Contact Info) Description 11/03/2024 3:30 PM EDT Office Visit [facility]INE [address] [place] [address] Name, MD Apolinar [address] [place] [address] documented as of this encounter Visit Diagnoses Diagnosis Asthma, unspecified asthma severity, unspecified whether complicated, unspecified whether persistent documented in this encounter Additional Health Concerns Assessment Noted Time PHQ-9 Depression Total Score: 5 10/11/19 23 4:18 PM EDT documented as of this encounter Care Teams Sewer Connector Relationship Specialty Start Date End Date Name, MD Apolinar [address] [place] [phone] PCP - General Family Medicine 07/01/18 documented as of this encounter
--- OUTSIDE RECORDS SUMMARY | 2024-08-24 18:29 | XMS_ITS | Encounter Summary ---
Author Organization [employer] Address 75 [facility] 7t [place] [address] Care Team Providers Care Director Of Quality Control Name Role Phone Name, Apolinar HAINES Primary Care Provider [phone] Reason for Visit * Reason Comments Med Refill Encounter Details Date Type Department Care Team ([facility] st Contact Info) Description 08/01/2024 Refill [facility] MEDICINE [address] [place] [address] Name, MD Apolinar [address] [place], [place] [phone] Asthma, unspecified asthma severity, unspecified whether complicated, unspecified whether persistent Social History Tobacco Use Types Packs/Day Years Used Date Smoking Tobacco: Never Passive Smoke Exposure: Never Smokeless Tobacco: Never Alcohol Use Standard Drinks/Week Comments Never 0 (1 standard drink = 0.6 oz pur e alcohol) Depression Answer Date Recorded Patient Health Questionnaire-9 Score 3 04/17/2024 Patient Health Questionnaire-9 Score 3 04/17/2024 Last PHQ-9: Questionnaire Data Not on file 1 Housing Stability Answer Date Recorded What is your housing situation today? I have betty moser 03/13/[address] you li ve. Do you have problems with any of the following? None of the above 03/13/2024 Food Insecurity Answer Date Recorded Within the past 12 months, y ou worried that your food would run out before you got money to buy more: Never True 03/13/2024 Within the past 12 months,th e food you bought just didn't last and you didn't have enough money to get more: Never True Transportation Answer Date Recorded In the past 12 months, has l ack of transportation kept you from medical appts, meetings, work or from getting things needed for daily living? No 03/13/2024 Utilities Answer Date Recorded In the past 12 months, has t he electric, gas, oil or water company threatened to shut off services in your home? No 03/13/2024 Depression Answer Date Recorded Patient Health Questionnaire-2 Score 2 04/17/2024 Internet Access Answer Date Recorded Internet Access Q1 Yes 05/19/2024 Internet Access Q2 Not on file 05/19/2024 Comments Unknown Sex and Gender Information Value [...] Description 11/03/2024 3:30 PM EDT Office Visit [facility] MEDICINE [address] [place] [phone] Name, MD Apolinar [address] [place] [phone] documented as of this encounter Visit Diagnoses Diagnosis Asthma, unspecified asthma severity, unspecified whether complicated, unspecified whether persistent documented in this encounter Additional Health Concerns Assessment Noted Time PHQ-9 Depression Total Score: 3 04/17/20 24 11:34 AM EDT documented as of this encounter Care Teams Director Of Quality Control Relationship Specialty Start Date End Date Apolinar Koenig MD [address] [place] [phone] PCP - General Family Medicine 07/01/18 documented as of this encounter
--- OUTSIDE RECORDS SUMMARY | 2024-08-24 18:29 | XMS_ITS | Encounter Summary ---
Author Organization [employer] Address [address] [facility] 7t [place] [address] Care Team Providers Care Photographer Still Name Role Phone Name, Apolinar HAINES Primary Care Provider [phone] Encounter Details Date Type Department Care Team (Late st Contact Info) Description 07/04/2022 Orders Only [facility] CHC MED & PEDS [address] [place] [address] Debbi Alas LPN Social History Tobacco Use Types Packs/Day Years Used Date Smoking Tobacco: Never Assessed Comments Unknown Sex and Gender Information Value [...] Description 11/03/2024 3:30 PM EDT Office Visit [facility] MEDICINE [address] [place], [place] [phone] Name, MD Apolinar [address] [place] [address] documented as of this encounter Procedures Procedure Name Priority Date/Time Associated Diagnosis Comments SURESWAB(R) ADVANCED VAGINITIS, TMA Routine 10/25/2022 11:32 AM EDT documented in this encounter Results * SureSwab?? Advanced Vaginitis, TMA (10/25/2022 11:32 AM EDT) Trichomonas DNA Probe Negative Negative [facility] Gardnerella DNA Probe Negative Negative [facility] Ashley DNA Probe Negative Negative [facility] 10/25/2022 11:3 2 AM EDT 10/25/2022 3:51 PM EDT [facility] Ex[facility] nal Provider LAB BODY FLUIDS AND STOOLS ORDERABLES Final Result Performing Organization Address City/State/[facility] Co de Phone Number [facility] [address] [place] [address] [phone] documented in this encounter Visit Diagnoses Not on filedocumented in this encounter Care Teams Photographer Still Relationship Specialty Start Date End Date Name, MD Apolinar [address] [place] [phone] PCP - General Family Medicine 07/01/18 documented as of this encounter
--- OUTSIDE RECORDS SUMMARY | 2024-08-24 18:29 | XMS_ITS | Encounter Summary ---
Author Organization [employer] Address [address] [facility] 7t [place] [address] Care Team Providers Care Applications Support Analyst Name Role Phone Name, Apolinar HAINES Primary Care Provider Reason for Visit * Reason Onset Date Comments Appointment Request 07/27/2024 Encounter Details Date Type Department Care Team ([facility] st Contact Info) Description 07/27/2024 Telephone [facility] MEDICINE [address] [place] [address] Name, MD Apolinar [address] [place], [place] [phone] Appointment Request Social History Tobacco Use Types Packs/Day Years [...] AM EDT documented as of this encounter Miscellaneous Notes * Telephone Encounter - Marbin Bach - 07/27/2024 1:57 PM EST Tc from pt requesting a Follow up with Name. Pt is not having any Concerns. Contact pt at [phone] documented in this encounter Plan of Treatment Upcoming Encounters Date Type Department Care Team (Late st Contact Info) Description 11/03/2024 3:30 PM EDT Office Visit [facility] MEDICINE [address] [place] [phone] Apolinar Koenig MD [address] [place] [phone] documented as of this encounter Visit Diagnoses Not on filedocumented in this encounter Additional Health Concerns Assessment Noted Time PHQ-9 Depression Total Score: 3 04/17/20 24 11:34 AM EDT documented as of this encounter Care Teams Applications Support Analyst Relationship Specialty Start Date End Date Apolinar Koenig MD [address] [place] [phone] PCP - General Family Medicine 07/01/18 documented as of this encounter
--- OUTSIDE RECORDS SUMMARY | 2024-08-24 18:29 | XMS_ITS | Encounter Summary ---
Author Organization [employer] Address [address] [facility] 7t [place] [address] Care Team Providers Care Flight Test Engineer Name Role Phone Name, Apolinar HAINES Primary Care Provider [phone] Reason for Visit * Reason Onset Date Comments FYI 01/11/2023 Encounter Details Date Type Department Care Team ([facility] st Contact Info) Description 01/11/2023 Telephone [facility] [address] [place], [place] [phone] Name, MD Apolinar [address] [place], [place] [phone] Social History Tobacco Use Types Packs/Day Years [...] suspected to have Coronavirus/COVID-19? No / Unsure 12/26/2022 3:24 PM EDT documented as of this encounter Miscellaneous Notes * Telephone Encounter - Donna Cristobal - 01/11/2023 10:09 AM EDT Tc from pt calling to advise PCP since stopping pravastatin she has not had any cramping so far. documented in this encounter Plan of Treatment Upcoming Encounters Date Type Department Care Team (Late st Contact Info) Description 11/03/2024 3:30 PM EDT Office Visit [facility] [address] [place] [address] Name, MD Apolinar [address] [place] [address] documented as of this encounter Visit Diagnoses Not on filedocumented in this encounter Additional Health Concerns Assessment Noted Time PHQ-9 Depression Total Score: 5 10/11/19 23 4:18 PM EDT documented as of this encounter Care Teams Flight Test Engineer Relationship Specialty Start Date End Date Name, MD Apolinar [address] [place] [id number] PCP - General Family Medicine 07/01/18 documented as of this encounter
--- OUTSIDE RECORDS SUMMARY | 2024-08-24 18:29 | XMS_ITS | Encounter Summary ---
Author Organization [employer] Address [address] [facility] 7t [place] [address] Care Team Providers Care Financial Accountant Name Role Phone Name, Apolinar HAINES Primary Care Provider [phone] Reason for Visit * Reason Onset Date Comments returning pt call 07/27/2024 Encounter Details Date Type Department Care Team (Late st Contact Info) Description 07/27/2024 Telephone [facility] [address] [place] [address] Vito Kim MA returning pt call Social History Tobacco Use Types Packs/Day Years [...] encounter Miscellaneous Notes * Telephone Encounter - Jacqueline Estrada - 08/07/2024 1:07 PM EST Tc from pt returning phone call. * Telephone Encounter - Vito Kim MA - 07/27/2024 2:24 PM EST T/c placed to pt returning call pt, unable to reach pt to schedule appt pt is requesting if pt calls back , you could transfer call to book appt . documented in this encounter Plan of Treatment Upcoming Encounters Date Type Department Care Team (Late st Contact Info) Description 11/03/2024 3:30 PM EDT Office Visit [facility] [address] [place] [address] NameApolinar MD [address] [place] [address] documented as of this encounter Visit Diagnoses Not on filedocumented in this encounter Additional Health Concerns Assessment Noted Time PHQ-9 Depression Total Score: 3 04/17/20 24 11:34 AM EDT documented as of this encounter Care Teams Financial Accountant Relationship Specialty Start Date End Date NameApolinar MD [address] [place] [address] PCP - General Family Medicine 07/01/18 documented as of this encounter
--- OUTSIDE RECORDS SUMMARY | 2024-08-24 18:29 | XMS_ITS | Encounter Summary ---
Author Organization [employer] Address [address] [facility] 7t [place] [address] Care Team Providers Care Public Health Internship Name Role Phone Name, Apolinar HAINES Primary Care Provider [phone] Reason for Visit * Reason Onset Date Comments triage 08/02/2022 Encounter Details Date Type Department Care Team (Late st Contact Info) Description 08/02/2022 Telephone [facility] [address] [place] [address] [phone] NameApolinar MD [address] [place] [address] [phone] triage Social History Tobacco Use Types Packs/Day Years Used Date Smoking Tobacco: Never Assessed Comments Unknown Sex and Gender Information Value Date Recorded Sex Assigned at Female 04/30/2022 10:29 AM EDT Legal Sex Female 10:29 AM EDT Gender Identity Female 04/30/2022 10:29 AM EDT Sexual Orientation Straight 04/30/2022 10 :29 AM EDT documented as of this encounter Miscellaneous Notes * Telephone Encounter - Amando Ravi - 08/02/2022 1:50 PM EST Symptom: Abdominal Pain - Female - Not Outcome: Talk to a nurse or provider within 15 minutes Reason: Severe pain now The caller accepted this outcome documented in this encounter Plan of Treatment Upcoming Encounters Date Type Department Care Team (Late st Contact Info) Description 11/03/2024 3:30 PM EDT Office Visit [facility] [address] [place] [address] [phone] NameApolinar MD [address] [place] [address] [phone] documented as of this encounter Visit Diagnoses Not on filedocumented in this encounter Care Teams Public Health Internship Relationship Specialty Start Date End Date Name, MD Apolinar [address] [facility] [place] [address] PCP - General Family Medicine 07/01/18 documented as of this encounter
--- OUTSIDE RECORDS SUMMARY | 2024-08-24 18:29 | XMS_ITS | Encounter Summary ---
Author Organization [employer] Address [address] [facility] 7t [place] [address] Care Team Providers Care Service Station Equipment Mechanic Name Role Phone Name, Apolinar HAINES Primary Care Provider [phone] Reason for Visit * Reason Onset Date Comments returning pt call 08/20/2024 Encounter Details Date Type Department Care Team (Late st Contact Info) Description 08/20/[address] [facility] [address] [place] [address] Vito Kim MA returning pt call Social [...] encounter Miscellaneous Notes * Telephone Encounter - Vito Kim MA - 08/20/2024 3:54 PM EST T/c placed to pt returning call back, pt is really upset she called back about 2 weeks ago and no one has called her back , pt is upset she needs to see pcp now in October , I explained to pt pcp is overbooked and doesn't have any slots until October , pt has okay she will schedule for November 03, 2024 @ 3:30pm. documented in this encounter Plan of Treatment Upcoming Encounters Date Type Department Care Team (Late st Contact Info) Description 11/03/2024 3:30 PM EDT Office Visit [facility] [address] [place] [address] Name, MD Apolinar [address] [place] [address] documented as of this encounter Visit Diagnoses Not on filedocumented in this encounter Additional Health Concerns Assessment Noted Time PHQ-9 Depression Total Score: 3 04/17/20 24 11:34 AM EDT documented as of this encounter Care Teams Service Station Equipment Mechanic Relationship Specialty Start Date End Date NameApolinar MD [address] [place] [id number] PCP - General Family Medicine 07/01/18 documented as of this encounter
--- OUTSIDE RECORDS SUMMARY | 2024-08-24 18:29 | XMS_ITS | Encounter Summary ---
Author Organization [employer] Address [address] [facility] [address] [place] [address] Care Team Providers Care Sports Equipment Supervisor Name Role Phone Name, Apolinar HAINES Primary Care Provider [phone] Encounter Details Date Type Department Care Team (Late st Contact Info) Description 08/24/2024 11:15 AM EST Office Visit [facility] [address] [place], [place] [phone] Alba Marcum NP [address] [place], [place] [phone] Abdominal discomfort in right lower quadrant (Primary Dx) Social History Tobacco Use Types Packs/Day Years [...] AM EDT documented as of this encounter Last Filed Vital Signs Vital Sign Reading Time Taken Comments Blood Pressure 122/75 08/24/2024 11:42 AM EST Pulse 88 08/24/2024 11:42 AM EST Temperature 36.3 ??C (97.4 ??F) 08/24/2024 1 1:42 AM EST Respiratory Rate 16 08/24/2024 11:4 2 AM EST Oxygen Saturation 97% 08/24/2024 11: 42 AM EST Inhaled Oxygen Concentration - - Weight 78.4 kg (172 lb 12.8 oz) 025 11:42 AM EST Height 165.1 cm (5' 5 ) 08/24/2024 11:4 2 AM EST Body Mass Index 28.76 08/24/2024 11:42 AM EST documented in this encounter Plan of Treatment Upcoming Encounters Date Type Department Care Team (Late st Contact Info) Description 11/03/2024 3:30 PM EDT Office Visit [facility] [address] [place] [address] Name, MD Apolinar [address] [place] [address] Scheduled Orders Name Type Priority Associated Diagnoses Orde r Schedule Culture, Urine, Routine Microbiology Routine Abdominal discomfort in right lower quadrant Expected: 08/24/2024 (Approximate), Expires: 08/24/2025 documented as of this encounter Visit Diagnoses Diagnosis Abdominal discomfort in right lower quadrant- Primary documented in this encounter Additional Health Concerns Assessment Noted Time PHQ-9 Depression Total Score: 3 04/17/20 24 11:34 AM EDT documented as of this encounter Care Teams Sports Equipment Supervisor Relationship Specialty Start Date End Date Name, MD Apolinar [address] [place] [address] PCP - General Family Medicine 07/01/18 documented as of this encounter
--- OUTSIDE RECORDS SUMMARY | 2024-08-24 18:29 | XMS_ITS | Encounter Summary ---
Author Organization [facility] [facility] Address [address] [place] [address] 7t [place] [address] Care Team Providers Care Body Art Technician Name Role Phone Name, Apolinar HAINES Primary Care Provider [phone] Reason for Visit * Reason Comments Med Refill Encounter Details Date Type Department Care Team (Late st Contact Info) Description 06/05/2022 Refill [facility] [address] [place] [phone] Apolinar Koenig MD [address] [place] [phone] Social History Tobacco Use Types Packs/Day Years [...] Description 11/03/2024 3:30 PM EDT Office Visit [facility] [address] [place] [phone] Apolinar Koenig MD [address] [place] [phone] documented as of this encounter Visit Diagnoses Not on filedocumented in this encounter Care Teams Body Art Technician Relationship Specialty Start Date End Date Apolinar Koenig MD [address] [place] [phone] PCP - General Family Medicine 07/01/18 documented as of this encounter
--- OUTSIDE RECORDS SUMMARY | 2024-08-24 18:29 | XMS_ITS | Encounter Summary ---
Author Organization [employer] Address [address] [facility] 7t [place] [address] Care Team Providers Care Traffic Monitor Specialist Name Role Phone Name, Apolinar HAINES Primary Care Provider [phone] Reason for Visit * Reason Onset Date Comments Nurse Triage 08/21/2024 Encounter Details Date Type Department Care Team ([facility] st Contact Info) Description 08/21/2024 Telephone [facility] [address] [place], [place] [phone] Name, MD Apolinar [address] [place], [place] [phone] Nurse Triage Social History Tobacco Use Types Packs/Day Years [...] encounter Miscellaneous Notes * Telephone Encounter - Sendy Vuong LPN - 08/21/2024 11:13 AM EST TERE ALVARADO : 1960 Insured ID: [id number] Plan Date: 08/21/2024 - 08/21/2024 Patient reports that she has intermittent low pelvic pain to the right side. No fever no postural changes no vomiting. Has occasional nausea. Reports that she was told many years ago by [employer] that she had some sort of displaced bowel and that not to push with stool or do heavy lifting. Patient deniesdiagnosis of hernia or rectal prolapse. Patient thinks she is due this year for colonoscopy and will follow with [facility] Provider for appt. Patient reports discomfort tcomes and goes is not constantand that she occasionally takes OTC analgesic as needed. Patient with no urinary complaints and no noted blood in stool. Disposition reviewed and patient in agreement with plan. No PCP appts available at this time. ASK/Zahraa JOB INTERVIEWER on Saturday at 1115am. Protocol Used: Pelvic Pain - Female (Adult) Protocol-Based Disposition: See in Office or Video Visit Today or Tomorrow Override (Final) Disposition: See in Office or Video Visit within 3 Days Override Reason: Nurse judgment Positive Triage Question: * Patient wants to be seen * All higher-acuity triage questions were negative Care Advice Discussed: * Reasons To Call Back - Severe pain lasts over 1 hour - Constant pain lasts over 2 hours - Intermittent pain (comes and goes, cramps) lasts over 48 hours - You become worse * Telephone Encounter - Jacquelin Hawley - 08/21/2024 11:06 AM EST Symptom: Abdominal Pain - Female - Not Outcome: Talk to a nurse or provider within 15 minutes Reason: Severe pain now The caller accepted this outcome. documented in this encounter Plan of Treatment Upcoming Encounters Date Type Department Care Team (Late st Contact Info) Description 11/03/2024 3:30 PM EDT Office Visit [facility] [address] [place] [phone] Name, MD Apolinar [address] [place] [phone] documented as of this encounter Visit Diagnoses Not on filedocumented in this encounter Additional Health Concerns Assessment Noted Time PHQ-9 Depression Total Score: 3 04/17/20 24 11:34 AM EDT documented as of this encounter Care Teams Traffic Monitor Specialist Relationship Specialty Start Date End Date Name, MD Apolinar [address] [place] [phone] PCP - General Family Medicine 07/01/18 documented as of this encounter
--- OUTSIDE RECORDS SUMMARY | 2024-08-24 18:29 | XMS_ITS | Clinical Summary ---
Author Organization [employer] Address [address] [facility] 7[address] [place] [address] Care Team Providers Care Screening Specialist Name Role Phone Name, Apolinar HAINES Primary Care Provider [phone] Allergies Active Allergy Reactions Criticality Noted Date Comments Lisinopril 05/14/2011 Dry cough Pravastatin 01/11/2023 Myalgia and cramping Medications * This document contains information received from the source organization and may not represent a complete record from that organization. fluticasone (Flonase Allergy Relief) 50 MCG/ACT nasal sprayIndicatio ns:Asthma, unspecified asthma severity, unspecified whether complicated, unspecified whether persistent Administer 2 sprays into each nostril in the morning and at bedtime. 16 g 3 06/07/20 22 Active Incruse Ellipta 62.5 MCG/ACT aerosol powder INHALE 1 PUFF INTO THE LUNGS BY MOUTH ONCE DAILY 12/21/19 23 Active Diclofenac Sodium 1 % gelIndications :Chronic pain of left thumb To apply to the affected area 4 times a day 100 g 07/26/19 24 Active ipratropium (Atrovent) 0.03 % nasal spray Administer 2 sprays into each nostril every 12 (twelve) hours. 30 mL 12 09/20/19 24 2024 Active SUMAtriptan (Imitrex) 25 MG tablet Take 1 tablet (25 mg) by mouth 1 (one) time if needed for migraine. May repeat dose once in 2 hours if no relief. Do not exceed 2 doses in 24 hours. 9 tablet 2 09/20/19 24 Active losartan-hydro CHLOROthiazide (Hyzaar) 100-25 MG tablet Take 1 tablet by mouth Once per day. 30 tablet 11 03/13/20 24 2024 Active lidocaine (Lidoderm) 5 % patchIndicatio ns:Chronic low back pain without sciatica, unspecified back pain laterality Apply 1 patch topically Once per day. Remove & discard patch within 12 hours or as directed by MD. 30 patch 2 03/19/20 24 Active metoprolol succinate XL (Toprol-XL) 25 MG 24 hr tablet TAKE 1 TABLET BY MOUTH EVERY DAY 90 tablet 1 03/24/20 24 Active ezetimibe (Zetia) 10 MG tablet Take 1 tablet (10 mg) by mouth Once per day. 30 tablet 11 03/31/20 24 2024 Active sertraline (Zoloft) 100 MG tablet TAKE 1 TABLET BY MOUTH EVERY DAY 90 tablet 3 05/19/20 24 Active loratadine (EQ All Day Allergy Relief) 10 MG tablet TAKE 1 TABLET BY MOUTH EVERY DAY 90 tablet 1 06/01/20 24 Active cholecalcifero l (Vitamin D-3) 25 MCG (1000 UT) tablet TAKE 1 TABLET BY MOUTH EVERY DAY 90 tablet 1 06/02/20 24 Active montelukast (Singulair) 10 MG tablet TAKE 1 TABLET BY MOUTH ONCE DAILY IN THE EVENING 90 tablet 06/23/20 24 Active Fluticasone-Sa lmeterol 500-50 MCG/ACT aerosol powderIndicati ons:Asthma, unspecified asthma severity, unspecified whether complicated, unspecified whether persistent INHALE 1 DOSE BY MOUTH TWICE DAILY (IN THE MORNING AND EVENING, APPROXIMATELY 12 HOURS APART) 60 each 07/08/19 25 Active albuterol 108 (90 Base) MCG/ACT inhalerIndicat ions:Asthma, unspecified asthma severity, unspecified whether complicated, unspecified whether persistent INHALE 2 PUFFS BY MOUTH EVERY 4 TO 6 HOURS NEEDED 8.5 g 08/03/19 25 Active busPIRone (Buspar) 10 MG tablet TAKE 1/2 TABLET BY MOUTH TWICE A DAY 90 tablet 08/03/19 25 Active busPIRone (Buspar) 10 MG tablet Take 0.5 tablets (5 mg) by mouth 2 times daily. 90 tablet 09/20/19 24 2024 Discontinued albuterol 108 (90 Base) MCG/ACT inhalerIndicat ions:Asthma, unspecified asthma severity, unspecified whether complicated, unspecified whether persistent INHALE 2 PUFFS BY MOUTH EVERY 4 TO 6 HOURS NEEDED 8.5 g 1 06/01/202024 Discontinued Active Problems Problem Noted Date Diagnosed Date Abdominal discomfort in right lower quadrant Lower abdominal pain 08/23/2024 Adjustment disorder with mixed anxiety and depre ssed mood 04/21/2024 Flexor tenosynovitis of thumb 12/27/2022 Atrophic vaginitis 10/10/2022 Obesity (BMI 30.0-34.9) 10/10/2022 SUZAN on CPAP 10/10/2022 Parapelvic renal cyst 10/10/2022 Benign paroxysmal positional vertigo 10/30/2018 COPD (chronic obstructive pulmonary disease) 10/2017 History of Helicobacter pylori infection 018 Migrainous vertigo 12/12/2017 Acute sinusitis 11/20/2017 Cough 11/20/2017 Dizziness 11/20/2017 H. pylori infection 04/16/2016 Anxiety 09/20/2015 Asthma 09/20/2015 Hypercholesterolemia 09/20/2015 Right bundle branch block 09/20/2015 HTN (hypertension) 07/11/2011 Vitamin D deficiency 05/21/2011 Allergic rhinitis 02/15/2011 Leg cramps, sleep related 02/24/2010 Degenerative arthritis of lumbar spine 0 Low back pain 05/12/2009 Assessment & Plan (03/19/2024 7:18 PM EDT): Paraspinal L> R lower back pain w normal neuro exam 08/2023 Chem,CBC wnc -lumbar XR order today -warm compresses -tylenol px today , NSAIDS-has ibuprofen at home has at home for more severe pain -lidoderm patch ,has topical diclofenac -hold on muscle relaxants for heart block hx -PT referred today -if no better to consider further image as MRI -alarm signs and symptoms discussed w pt Migraine 06/11/2008 High cholesterol 11/25/2007 Resolved Problems Problem Noted Date Diagnosed Date Resolved Date Mild persistent asthma 08/15/200709/19 Encounters Date Type Department Care Team Description 08/24/2024 11:15 AM EST Office Visit [facility] [address] [place] [phone] Alba Marcum, SUJATHA Abdominal discomfort in right lower quadrant (Primary Dx) 08/21/2024 Telephone [facility] [address] [place] [phone] Apolinar Koenig MD Nurse Triage 08/20/2024 Telephone [facility] [address] [place] [phone] Vito Kim MA returning pt call 08/01/2024 Refill [facility] [address] [place] [phone] Apolinar Koenig MD Asthma, unspecified asthma severity, unspecified whether complicated, unspecified whether persistent 07/27/2024 Telephone [facility] [address] [place] [address] Vito Kim MA returning pt call 07/27/2024 Telephone [facility] [address] [place] [address] [phone] Apolinar Koenig MD Appointment Request 07/08/2024 Refill [facility] [address] [place] [phone] Apolinar Koenig MD Asthma, unspecified asthma severity, unspecified whether complicated, unspecified whether persistent 06/22/2024 Refill [facility] [address] [place] [address] [phone] Apolinar Koenig MD 06/01/2024 Refill [facility] [address] [place] [address] [phone] Kylie Lehman MD 05/29/2024 Refill [facility] [address] [place] [address] [phone] Apolinar Koenig MD Asthma, unspecified asthma severity, unspecified whether complicated, unspecified whether persistent 05/29/2024 Refill [facility] [address] [place] [phone] Charlotte Farooq ANP from Last 3 Months Immunizations Name Administration Dates Next Due INFLUENZA VACCINE QUADRIVALE NT RECOMBINANT PRESERVATIVE FREE RIV4 03/29/2020 Influenza injectable quadriv alent IIV4 with preservative 04/29/2018,05/13/2017,04/16/2016 Influenza injectable quadriv alent preservative free 05/07/2023,05/22/2022,05/16/2021,03/23 Influenza, High Dose Seasona l, Preservative Free 03/13/2024 Influenza, IIV3, injectable 04/14/2015,1 ,03/10/2013,03/18,03/15/2011,05/12/2010,04/29/2008 Moderna Covid-19 Vaccine 6+ Bivalent 10/17/2022 Pfizer Covid-19 Vaccine 12+ 05/19/2024, Pneumococcal Conjugate PCV 20 03/13/2024 Pneumococcal Polysaccharide PPSV23 05/13/2017 Tdap 05/07/2023,05/14/2011 Zoster, Recombinant 07/13/2020,03/29/2020 Family History Medical History Relation Name Comments Hypertension Father Hypertension Mother Relation Name Status Comments Father Mother Social History Tobacco Use Types Packs/Day Years Used Date Smoking Tobacco: Never Passive Smoke Exposure: Never Smokeless Tobacco: Never Tobacco Cessation:Counseling Given: Not Answered Alcohol Use Standard Drinks/Week Comments Never 0 [...] Orientation Straight 04/30/2022 10 :29 AM EDT Last Filed Vital Signs Vital Sign Reading [...] Mass Index 28.76 08/24/2024 11:42 AM EST Plan of Treatment Upcoming Encounters Date Type Department Care Team (Late st Contact Info) Description 11/03/2024 3:30 PM EDT Office Visit [facility] [address] [place] [address] Name, MD Apolinar [address] [place] [address] Health Maintenance Due Date Last Done Comments CT Colonography 1958 FIT DNA/Cologuard 1960 FIT 1960 FOBT 1960 Sigmoidoscopy 1960 Hepatitis C Screening 1976 RSV Patients and Patients Aged 60 years or older (1 - Risk 60-74 years 1-dose series) 2018 Depression Screening 04/17/2025 04/17/2024, 04/17/20 24 Mammogram 05/13/2025 05/13/2024, 11/0 03/2023, 05/08/2023, Additional history exists Alcohol/Substance Use Screening 05/19/2025 05/19/2024 Cervical Cancer Screening 06/15/2025 HPV/Cotest 06/15/2025 05/07/2018 Pap Smear 06/15/2025 06/15/2020 SDOH Screening 08/24/2025 08/24/2024 Tobacco Screening 08/24/2025 08/24/2024 Colonoscopy 08/14/2027 08/14/2022, 08/14/2019 Colorectal Cancer Screening 08/14/2027 Lipid Panel 03/20/2029 03/20/2024, 09/29, 10/05/2021, Additional history exists DTaP/Tdap/Td Vaccines (3 - Td or Tdap) 05/07/2033 05/07/2023, 05/14/2011 Zoster Vaccines Completed 07/13/2020, 03/29/2020 Influenza Vaccine Completed 03/13/2024, , 05/22/2022, Additional history exists Pneumococcal Vaccine: 50+ Years Completed 03/13/2024, 05/13/2017 COVID-19 Vaccine Completed 05/19/2024, , 10/17/2022, Additional history exists HIB Vaccines Aged Out No longer eligi [...] patient's age to complete this topic Meningococcal Vaccine Aged Out No [facility] eligible based on patient's age to complete this topic RSV under 20 months Aged Out No longe r eligible based on patient's age to complete this topic Rotavirus Vaccines Aged Out No longer eligible based on patient's age to complete this topic Procedures Procedure Name Priority Date/Time Associated Diagnosis Comments BI MAMMOGRAM SCREENING TOMOSYNTHESIS BILATERAL Routine 05/13/2024 2:02 PM EST LIPID PANEL, STANDARD Routine 03/20/2024 12:00 AM EDT Hypertension, unspecified type Statin intolerance HM COLONOSCOPY Routine 08/14/2022 3:12 PM EST HM PAP/HPV Routine 06/15/2020 12:00 AM EST [facility] HISTORICAL HPV MRNA E6/E7 Routine 05/07/2018 10:00 AM EST from Last 3 Months or Most Recently Relevant to Health Maintenance Results * BI Mammogram Screening Tomosynthesis Bilateral (05/13/2024 2:02 PM EST) Anatomical Region Laterality Modality Breast Bilateral Mammography 05/13/2024 2:02 PM EST Narrative 05/22/2024 8:48 AM EST ? [facility] ? [address] ?[place] [address] ? Mammography Report ? Signed ? Patient: Kari Alvarado ?MR#: [id number] ?? [id number] ? : 1960 ?Acct:[id number] ? Age/Sex: 63 / F ?ADM Date: 05/13/24 ? Loc: HO.MAMMO ? Attending Dr: Apolinar Name MD ? Ordering Physician: Name,Apolinar MD ?Results: 1Negative ? Date of Service: 05/13/24 ?Follow Up: 1 Year From Orig ?? inal Mammogram ? Procedure(s): MM tomosynthesis screening BI ?? Accession Number(s): [id number] ? cc: Name,Apolinar MD ? EXAMINATION: ?? MM SCREENING DIGITAL BREAST TOMOSYNTHESIS, BILATERAL ? CLINICAL INFORMATION: ? Screening. Asymptomatic. ? COMPARISON: ?? Mammography: Comparison is made with available priors ? TECHNIQUE: ?? Digital breast mammography with tomosynthesis is performed in both the ?? craniocaudal and mediolateral oblique views along with computer-aided ?? detection (CAD). ? FINDINGS: ?? There are scattered areas of fibroglandular density (ACR BI-RADS breast ?? composition Category b). ? There are no significant masses, abnormal calcifications, or other ?? abnormalities. ? MM/MM tomosynthesis screening BI ?? IMPRESSION: ?? No mammographic evidence of malignancy. ? ASSESSMENT: ? BI-RADS BI-RADS 1 - Negative ? RECOMMENDATION: ?? Routine annual mammography screening. ? 1 year F/U ? This examination should not preclude the clinical evaluation of a ?? suspicious palpable abnormality. ? This patient's information was entered into a reminder system with a ?? target due date for their next mammogram. ? Electronically signed by: ??Samantha Payton DO ??05/22/2024 08:45 AM EST ? Dictated By: ?Samantha Payton DO ? Signed By: ?<Electronically signed by Samantha Payton, DO in OV> ? 05/22/24 0845 ? DD/ 1402 ? TD/TT: 05/13/24 1430 ? Cashier Supervisor: ? Procedure Note Sara, Image - 05/22/2024 [facility] [address] [place] [address] Mammography Report Signed Patient: Trevor Alvarado#: [id number] : 9Acct:[id number] Age/Sex: 63 / FADM Date: 05/13/24 Loc: [facility] Attending Dr: Apolinar Koenig MD Ordering Physician: Apolinar Koenigults: 1Negative Date of Service: 05/13/24Follow Up: 1 Year From Orig inal Mammogram Procedure(s): MM tomosynthesis screening BI Accession Number(s): [id number] cc: Apolinar Koenig MD EXAMINATION: MM SCREENING DIGITAL BREAST TOMOSYNTHESIS, BILATERAL CLINICAL INFORMATION: Screening. Asymptomatic. COMPARISON: Mammography: Comparison is made with available priors TECHNIQUE: Digital breast mammography with tomosynthesis is performed in both the craniocaudal and mediolateral oblique views along with computer-aided detection (CAD). FINDINGS: There are scattered areas of fibroglandular density (ACR BI-RADS breast composition Category b). There are no significant masses, abnormal calcifications, or other abnormalities. MM/MM tomosynthesis screening BI IMPRESSION: No mammographic evidence of malignancy. ASSESSMENT: BI-RADS BI-RADS 1 - Negative RECOMMENDATION: Routine annual mammography screening. 1 year F/U This examination should not preclude the clinical evaluation of a suspicious palpable abnormality. This patient's information was entered into a reminder system with a target due date for their next mammogram. Electronically signed by: Samantha Payton DO 05/22/2024 08:45 AM [facility] Dictated By: Samantha Payton DO Signed By: <Electronically signed by Samantha Payton DO in OV> 05/22/24 0845 DD/ 1402 TD/TT: 05/13/24 1430 Cashier Supervisor: Apolinar Koenig MD [facility] BI PROCEDURES Final Result * (ABNORMAL) Lipid Panel, Standard (03/20/2024 12:00 AM EDT) Triglycerides 173(H) <150 mg/dL [facility] Comment:Desirable Triglyceri de: less than 150 mg/dLBorderline High Triglyceride 150-199 mg/dLHigh Triglyceride: 200-499 mg/dLVery High Triglyceride: greater than or equal to 5OO mg/dL Cholesterol 213(H) <200 mg/dL [facility] Comment:Desirable Cholestero l: less than 200 mg/dLBorderline High Cholesterol: 200-239 mg/dLHigh Cholesterol: greater than 239 mg/dL LDL Cholesterol Calculated 138(H) <100 mg/dL [facility] Comment:Desirable LDL: less than 100 mg/dLNear Optimal/Above Optimal LDL: 110- 129 mg/dLBorderline High LDL: 130-159 mg/dLHigh LDL: 160-189 mg/dLVery High LDL: greater than or equal to 190 mg/dL HDL Cholesterol 41 >40 mg/dL [facility] Comment:Desirable HDL: great er than 40 mg/dL Note: This HDL assay may give artificially low results in patients with liver disease. Blood Venous blood specimen / Unknown 03/20/2024 03/20/2024 Apolinar Koenig MD LAB BLOOD ORDERABLES Final Resul t [facility] [address] [place] [address] [phone] * Hm Colonoscopy (08/14/2022 3:12 PM EST) Colonoscopy Normal Normal Narrative Prerna Judd - 08/14/2022 3:12 PM EST Recommended 5 year follow up Historical Provider HEALTH MAINTENANCE Final Result * Pap Smear (06/15/2020 12:00 AM EST) Historical Provider HEALTH MAINTENANCE Final Result * HPV mRNA E6/E7 (05/07/2018 10:00 AM EST) HPV mRNA E6/E7 Not Detected NOT DETECTED [facility] Comment: This test was performed using the APTIMA(R) HPV Assay ([employer] This assay detects E6/E7 viral messenger RNA (mRNA) from 14 high-risk HPV types (16,18,31,33,35,39,45,51, 52,56,58,59,66,68). For additional information please refer to: http://education.[employer].PsomasFMG/faq/MNF130j8 (This link is being provided for informational/ educational purposes only.) The analytical performance characteristics of this assay have been determined by [employer] [place], [place]. The modifications have not been cleared or approved by the FDA. This assay has been validated pursuant to the CLIA regulations and is used for clinical purposes. Test Performed by [facility], [facility], [address] [place], [place] Layo Moss M.D., Ph.D., Director of Laboratories , [facility] [id number] Please note: ??Effective 03/12/2016, HPV testing will be performed using [employer]'s APTIMA test which targets mRNA. Detecting mRNA instead of DNA, as in older methods, offers significant improvements in specificity. 05/07/2018 10:0 0 AM EST us Rosanna Puente CNM HISTORICAL/NON ORDERABLE LABS Final Result [facility] [address] from Last 3 Months or Most Recently Relevant to Health Maintenance Insurance [employer] PPO Care Teams Screening Specialist Relationship Specialty Start Date End Date Name, MD Apolinar [address] [place] [phone] PCP - General Family Medicine 07/01/18
--- OUTSIDE RECORDS SUMMARY | 2024-08-24 18:29 | XMS_ITS | Encounter Summary ---
Author Organization [facility] Address [address] [place] [address] [address] [place] [address] Care Team Providers Care Supervisor Dehydrogenation Name Role Phone Name, Apolinar HAINES Primary Care Provider [phone] Reason for Visit * Reason Comments Med Refill Encounter Details Date Type Department Care Team (Late st Contact Info) Description 06/11/2022 Refill [facility] [address] [place] [phone] Apolinar Koenig MD [address] [place] [phone] Social History Tobacco Use Types Packs/Day Years [...] Description 11/03/2024 3:30 PM EDT Office Visit [facility] [address] [place] [phone] Apolinar Koenig MD [address] [place] [phone] documented as of this encounter Visit Diagnoses Not on filedocumented in this encounter Care Teams Supervisor Dehydrogenation Relationship Specialty Start Date End Date Apolinar Koenig MD [address] [place] [phone] PCP - General Family Medicine 07/01/18 documented as of this encounter
== END 2024-08-24 16:36 | disposition home or self-care (01) ==
LOC: HO.HHCLNP 16:35
PROVIDERS: Visit Provider Nurse Practitioner Family
DX: R10.30 Lower abdominal pain, unspecified (principal)
CPT/HCPCS: 87086

== ENCOUNTER 2024-11-04 13:58 | Outpatient (REF) | payer MEDICARE, SELFPAY ==
--- OUTSIDE RECORDS SUMMARY | 2024-11-04 15:15 | XMS_ITS | Clinical Summary ---
Author Organization [address] [place] [address] Address [address] [place] [address] Phone Care Team Providers Care Stevedoring Supervisor Name Role Phone Name, Apolinar HAINES Primary Care Provider [phone] Allergies Active Allergy Reactions Criticality Noted Date [...] Noted Date Diagnosed Date COPD (chronic obstructive pu lmonary disease) ([facility] V24, [facility] V28) 01/02/2018 History of Helicobacter pylori infection 018 HTN [...] DX:HTN COPD (chronic obstructive pu lmonary disease) ([facility] V24, [facility] V28) 01/02/2018 DX:COPD (chronic o bstructive pulmonary disease) ([facility]) History of Helicobacter pylo ri infection 01/02/2018 [...] 2:15 PM EST Office Visit Pulmonolgy - [place] [address] [facility] [address] [place] [address] Zac Cerda MD [address] [facility] [address] [place] [address] Health Maintenance Due Date Last Done Comments Breast Cancer Screening 1960 RSV Immunization Adult Patients (1 - Risk 60-74 years 1-dose series) [...] age to complete this topic Meningococcal B Vaccine Aged Out No l onger eligible based on patient's age to complete [...] Results * Cervical Cancer Screening: HPV (03/18/2017) [facility] Cervical Cancer Screening: HPV Abstracted, negative [facility] Provider HEALTH MAINTENANCE Final Result * Annual BMP Blood Test (06/01/2015) [facility] Annual BMP Blood Test Abstracted [facility] Provider HEALTH MAINTENANCE Final Result * (ABNORMAL) Lipid panel (09/28/2014) [facility] LDL/HDL Ratio 4 0 - 4 Triglycerides 142 0 - 150 mg/dL Cholesterol 203(A) 0 - 200 mg/dL HDL 54 >=40 mg/dL LDL Cholesterol 121(A) 0 - 100 mg/dL Blood Venous blood specimen / Unknown [facility] Provider LAB BLOOD ORDERABLES Viola l Result * Hepatitis C Screening (02/11/2012) [facility] Hepatitis C Screening Abstracted [facility] Provider HEALTH MAINTENANCE Final Result from Last 3 Months or Most Recently Relevant to Health Maintenance Insurance [employer] MEDICARE Member Subscriber Plan / Payer (Ef fective 2024-Present) Name:Kari Alvarado Relation to Subscriber:Self Name:Kari Alvarado Payer ID:[id number] Group ID:[id number] Type:Not on file Address: [address] [facility] [place] [phone] Care Teams Stevedoring Supervisor Relationship Specialty Start Date End Date Name, MD Apolinar [address] [place], [place] PCP - General 08/14/07
--- OUTSIDE RECORDS SUMMARY | 2024-11-04 15:15 | XMS_ITS | Encounter Summary ---
Author Organization [employer] Address [address] [facility] 7t [place] [address] Care Team Providers Care Electronic Lab Technician Name Role Phone Name, Apolinar HAINES Primary Care Provider [phone] Reason for Visit * Reason Comments Follow-up Encounter Details Date Type Department Care Team ([facility] st Contact Info) Description 11/03/2024 3:30 PM EDT Office Visit [facility] [address] [place], [place] [phone] Name, MD Apolinar [address] [place], [place] [phone] Chronic obstructive pulmonary disease, unspecified COPD type (CMS/HCC) (Primary Dx); Hypertension, unspecified type; Depression with anxiety; High cholesterol; Statin intolerance Social History Tobacco Use Types Packs/Day Years [...] Sign Reading Time Taken Comments Blood Pressure 128/79 11/03/2024 3:44 PM EDT Pulse 78 11/03/2024 3:44 PM EDT Temperature 36.4 ??C (97.6 ??F) 11/03/2024 3:44 PM ED T Respiratory Rate 12 11/03/2024 3:44 PM EDT Oxygen Saturation 94% 11/03/2024 3:44 PM EDT Inhaled Oxygen Concentration - - Weight 78 kg (172 lb) 11/03/2024 3:44 PM EDT Height 165.1 cm (5' 5 ) 11/03/2024 3:44 PM EDT Body Mass Index 28.62 11/03/2024 3:44 PM EDT documented in this encounter Progress Notes * Apolinar Koenig MD - 11/03/2024 3:30 PM EDT Subjective Patient ID: Kari Alvarado is a 63 y.o. female who presents for Follow-up. Patient comes for follow-up visit. She feels well. Blood pressure is well- controlled on current medication. She denies significant copd/asthma symptoms. She is using inhalers as prescribed. She is ingood spirits. Her most recent visit to walk-in clinic was about abdominal discomfort that has resolved completely. Review of Systems Constitutional: Negative for chills and fever. HENT: Negative for sore throat. Respiratory: Negative for cough, shortness of breath and wheezing. Cardiovascular: Negative for chest pain, palpitations and leg swelling. Gastrointestinal: Negative for abdominal pain. Visit Vitals BP 128/79 (BP Location: Left arm, Patient Position: Sitting, BP Cuff Size: Large adult) Pulse 78 Temp 97.6 ??F (36.4 ??C) (Temporal) Resp 12 Ht 5' 5 (1.651 m) Wt 172 lb (78 kg) SpO2 94% BMI 28.62 kg/m?? Smoking Status Never BSA 1.89 m?? Objective Physical Exam Constitutional: Appearance: Normal appearance. Cardiovascular: Rate and Rhythm: Normal rate and regular rhythm. Heart sounds: No murmur heard. No gallop. Pulmonary: Effort: Pulmonary effort is normal. No respiratory distress. Breath sounds: Normal breath sounds. No wheezing. Abdominal: General: There is no distension. Tenderness: There is no abdominal tenderness. Musculoskeletal: Right lower leg: No edema. Left lower leg: No edema. Neurological: Mental Status: She is alert. Assessment/Plan Diagnoses and all orders for this visit: Chronic obstructive pulmonary disease, unspecified COPD type (CMS/[facility]) Comments: Well controlled. Continue current inhalers Hypertension, unspecified type Comments: Well controlled, continue current meds Orders: - Comprehensive Metabolic Panel; Future - Lipid Panel, Standard; Future Depression with anxiety Comments: She has been in good spirits. Continue sertraline. High cholesterol Comments: Continue Zetia. Recheck fasting blood work. She does not tolerate statins because of muscle discomfort. Orders: - Comprehensive Metabolic Panel; Future - Lipid Panel, Standard; Future Statin intolerance documented in this encounter Plan of Treatment Upcoming Encounters Date Type Department Care Team (Late st Contact Info) Description 02/10/2025 3:45 PM EDT Office Visit [facility] [address] [place] [address] Apolinar Koenig MD [address] [place] [address] Scheduled Orders Name Type Priority Associated Diagnoses Orde r Schedule Comprehensive Metabolic Panel Lab Routine Hypertension, unspecified type High cholesterol Expected: 11/03/2024 (Approximate), Expires: 11/03/2025 Lipid Panel, Standard Lab Routine Hypertension, unspecified type High cholesterol Expected: 11/03/2024 (Approximate), Expires: 11/03/2025 documented as of this encounter Visit Diagnoses Diagnosis Chronic obstructive pulmonary disease, unspecified COPD type ([facility])- Primary Hypertension, unspecified type Depression with anxiety Dysthymic disorder High cholesterol Pure hypercholesterolemia Statin intolerance documented in this encounter Additional Health Concerns Assessment Noted Time PHQ-9 Depression Total Score: 3 04/17/20 24 11:34 AM EDT documented as of this encounter Care Teams Electronic Lab Technician Relationship Specialty Start Date End Date Name, MD Apolinar [address] [place] [address] PCP - General Family Medicine 07/01/18 documented as of this encounter
--- OUTSIDE RECORDS SUMMARY | 2024-11-04 15:15 | XMS_ITS | Encounter Summary ---
Author Organization [employer] Address 75 [facility] 7t [place] [address] Care Team Providers Care [facility] Owner Name Role Phone Name, Apolinar HAINES Primary Care Provider [phone] Reason for Visit * Reason Onset Date Comments Chart Prep 11/02/2024 Encounter Details Date Type Department Care Team ([facility] st Contact Info) Description 11/02/2024 Telephone [facility] [address] [place] [address] Ena Pederson MA Chart Prep Social History Tobacco Use Types Packs/Day Years [...] t he electric, gas, oil or water [employer] threatened to shut off services in your [...] encounter Miscellaneous Notes * Telephone Encounter - Ena Pederson MA - 11/02/2024 10:44 AM EDT Chart Prep Labs: done Images: done Referrals: Gastro appointment on 11/04/24 at 12:30 PM Vaccines due: RSV Screenings: Hep C, Cervical cancer Overdue care gaps: Tobacco documented in this encounter Plan of Treatment Upcoming Encounters Date Type Department Care Team (Late st Contact Info) Description 02/10/2025 3:45 PM EDT Office Visit [facility] [address] [place] [address] NameApolinar MD [address] [place] [address] documented as of this encounter Visit Diagnoses Not on filedocumented in this encounter Additional Health Concerns Assessment Noted Time PHQ-9 Depression Total Score: 3 04/17/20 24 11:34 AM EDT documented as of this encounter Care Teams [facility] Owner Relationship Specialty Start Date End Date Name, MD Apolinar [address] [place] [address] PCP - General Family Medicine 07/01/18 documented as of this encounter
--- OUTSIDE RECORDS SUMMARY | 2024-11-04 15:15 | XMS_ITS | Encounter Summary ---
Author Organization [employer] Address [address] [facility] [address] 7t [place] [address] Care Team Providers Care Roll Slicing Machine Tender Name Role Phone Name, Apolinar HAINES Primary Care Provider [phone] Encounter Details Date Type Department Care Team (Latest Contact Info) Description 11/03/2024 Travel Social History Tobacco Use Types Packs/Day Years [...] Description 02/10/2025 3:45 PM EDT Office Visit [facility] [address] [place] [phone] NameApolinar MD [address] [place] [phone] documented as of this encounter Visit Diagnoses Not on filedocumented in this encounter Additional Health Concerns Assessment Noted Time PHQ-9 Depression Total Score: 3 04/17/20 24 11:34 AM EDT documented as of this encounter Care Teams Roll Slicing Machine Tender Relationship Specialty Start Date End Date Name, MD Apolinar [address] [place] [address] PCP - General Family Medicine 07/01/18 documented as of this encounter
--- OUTSIDE RECORDS SUMMARY | 2024-11-04 15:15 | XMS_ITS | Encounter Summary ---
Author Organization [employer] Address [address] [facility] 7t [place] [address] Care Team Providers Care An/Sqq 89(V)15 Sonar System Journeyman Name Role Phone Name, Apolinar HAINES Primary Care Provider [phone] Encounter Details Date Type Department Care Team ([facility] Contact Info) Description 11/16/2022 Orders Only [facility] [address] [place], [place] [phone] Debbi Alas LPN Social History Tobacco Use [...] Encounters Date Type Department Care Team (Late Contact Info) Description 02/10/2025 3:45 PM EDT Office Visit [facility] [address] [place], [place] [phone] Name, MD Apolinar [address] [place] [address] documented as of this encounter Visit Diagnoses Not on filedocumented in this encounter Additional Health Concerns Assessment Noted Time PHQ-9 Depression Total Score: 5 10/11/19 23 4:18 PM EDT documented as of this encounter Care Teams An/Sqq 89(V)15 Son[employer] System Journeyman Relationship Specialty Start Date End Date Name, MD Apolinar [address] [place] [address] PCP - General Family Medicine 07/01/18 documented as of this encounter
--- OUTSIDE RECORDS SUMMARY | 2024-11-04 15:15 | XMS_ITS | Encounter Summary ---
Author Organization [employer] Address [address] [facility] 7t [place] [address] Care Team Providers Care Human Resources Project Manager Name Role Phone Name, Apolinar HAINES Primary Care Provider [phone] Reason for Visit * Reason Comments Med Refill Encounter Details Date Type Department Care Team ([facility] st Contact Info) Description 06/25/2023 Refill [facility] [address] [place], [place] [phone] Name, MD Apolinar [address] [place] [address] Asthma, unspecified asthma severity, unspecified whether complicated, [...] t he electric, gas, oil or water [employer] threatened to shut off services in your [...] Description 02/10/2025 3:45 PM EDT Office Visit [facility] [address] [place] [address] Name, MD Apolianr [address] [place] [address] documented as of this encounter Visit Diagnoses Diagnosis Asthma, unspecified asthma severity, unspecified whether complicated, unspecified whether persistent documented in this encounter Additional Health Concerns Assessment Noted Time PHQ-9 Depression Total Score: 5 10/11/19 23 4:18 PM EDT documented as of this encounter Care Teams Human Resources Project Manager Relationship Specialty Start Date End Date Name, MD Apolinar [address] [place] [address] PCP - General Family Medicine 07/01/18 documented as of this encounter
--- OUTSIDE RECORDS SUMMARY | 2024-11-04 15:15 | XMS_ITS | Encounter Summary ---
Author Organization [employer] Address [address] [place] [address] 7t [place] [address] Care Team Providers Care Fleet Operations Manager Name Role Phone Name, Apolinar HAINES Primary Care Provider [phone] Reason for Visit * Reason Comments Med Refill Encounter Details Date Type Department Care Team (Late st Contact Info) Description 11/16/2022 Refill [facility] [address] [place] [address] [phone] Name, MD Apolinar [address] [place] [address] [phone] Social History Tobacco Use Types Packs/Day Years [...] Description 02/10/2025 3:45 PM EDT Office Visit [facility] [address] [place] [phone] Name, MD Apolinar [address] [place] [phone] documented as of this encounter Visit Diagnoses Not on filedocumented in this encounter Additional Health Concerns Assessment Noted Time PHQ-9 Depression Total Score: 5 10/11/19 23 4:18 PM EDT documented as of this encounter Care Teams Fleet Operations Manager Relationship Specialty Start Date End Date Name, MD Apolinar [address] [place] [address] PCP - General Family Medicine 07/01/18 documented as of this encounter
--- OUTSIDE RECORDS SUMMARY | 2024-11-04 15:16 | XMS_ITS | Encounter Summary ---
Author Organization [employer] Address 75 [facility] 7t [place] [address] Care Team Providers Care Immunochemist Name Role Phone Name, Apolinar HAINES Primary Care Provider [phone] Reason for Visit * Reason Onset Date Comments Appointment Request 07/27/2024 Encounter Details Date Type Department Care Team ([facility] st Contact Info) Description 07/27/2024 Telephone [facility] [address] [place], [place] [phone] Name, MD Apolinar [address] [place] [address] Appointment Request Social History Tobacco Use Types [...] not having any Concerns. Contact pt at [phone] documented in this encounter Plan of Treatment Upcoming Encounters Date Type Department Care Team (Late st Contact Info) Description 02/10/2025 3:45 PM EDT Office Visit [facility] [address] [place] [phone] Apolinar Koenig MD [address] [place] [address] documented as of this encounter Visit Diagnoses Not on filedocumented in this encounter Additional Health Concerns Assessment Noted Time PHQ-9 Depression Total Score: 3 04/17/20 24 11:34 AM EDT documented as of this encounter Care Teams Immunochemist Relationship Specialty Start Date End Date NameApolinar MD [address] [place] [phone] PCP - General Family Medicine 07/01/18 documented as of this encounter
--- OUTSIDE RECORDS SUMMARY | 2024-11-04 15:16 | XMS_ITS | Clinical Summary ---
Author Organization [employer] Address 75 [facility] 7t [place] [address] Care Team Providers Care Metal Caster Name Role Phone Name, Apolinar HAINES Primary Care Provider [phone] Allergies Active Allergy Reactions Criticality Noted Date [...] (twelve) hours. 30 mL 12 09/20/19 24 Active SUMAtriptan (Imitrex) 25 MG tablet Take [...] MD. 30 patch 2 03/19/20 24 Active ezetimibe (Zetia) 10 MG tablet [...] HOURS APART) 60 each 07/08/19 25 Active metoprolol succinate XL (Toprol-XL) 25 MG 24 hr tablet TAKE 1 TABLET BY MOUTH EVERY DAY 90 tablet 1 09/19/19 25 Active albuterol 108 (90 Base) MCG/ACT inhalerIndicat ions:Asthma, unspecified asthma severity, unspecified whether complicated, unspecified whether persistent INHALE 2 PUFFS BY MOUTH EVERY 4 TO 6 HOURS NEEDED 9 g 09/30/19 25 Active busPIRone (Buspar) 10 MG tablet Take 1/2 (one-half) tablet by mouth twice daily 90 tablet 10/30/19 25 Active busPIRone (Buspar) 10 MG tablet TAKE 1/2 TABLET BY MOUTH TWICE A DAY 90 tablet 08/03/19 25 2024 Discontinued Active Problems Problem Noted Date Diagnosed Date Depression with anxiety 11/03/2024 Epigastric pain 11/02/2024 Nausea 11/02/2024 Abdominal discomfort in right lower quadrant Lower [...] Encounters Date Type Department Care Team Description 11/03/2024 3:30 PM EDT Office Visit [facility] [address] [place] [phone] Name, MD Apolinar Chronic obstructive pulmonary disease, unspecified COPD type (CMS/HCC) (Primary Dx); Hypertension, unspecified type; Depression with anxiety; High cholesterol; Statin intolerance 11/03/2024 Travel 11/02/2024 Telephone [facility] [address] [place] [address] Ena Pederson MA Chart Prep 10/28/2024 Refill [facility] [address] [place] [address] Apolinar Koenig MD 09/28/2024 Refill [facility] [address] [place] [address] Apolinar Koenig MD Asthma, unspecified asthma severity, unspecified whether complicated, unspecified whether persistent 09/18/2024 Refill [facility] [address] [place] [address] Kylie Lehman MD 09/15/2024 Telephone [facility] [address] [place] [address] Jacquelin Gusman RN 09/10/[address] [address] Apolinar Koenig MD Call Back Request 09/02/2024 Refill [facility] [address] [place] [phone] Apolinar Koenig MD Asthma, unspecified asthma severity, unspecified whether complicated, unspecified whether persistent 08/24/2024 11:15 AM EST Office Visit [address] [address] Alba Marcum NP Abdominal discomfort in right lower quadrant (Primary Dx) 08/21/[address] [address] Apolinar Koenig MD Nurse Triage 08/20/[address] [address] Vito Kim MA returning pt call from Last 3 Months Immunizations Name Administration [...] is your housing situation today? I have bettyfam moser 03/13/[address] you [...] Mass Index 28.62 11/03/2024 3:44 PM EDT Plan of Treatment Upcoming Encounters Date Type Department Care Team (Late st Contact Info) Description 02/10/2025 3:45 PM EDT Office Visit [facility] [address] [place] [address] Name, MD Apolinar [address] [place] [address] Health Maintenance Due Date Last Done Comments CT Colonography 1960 FIT DNA/Cologuard 1960 FIT 1960 FOBT 1960 Sigmoidoscopy 1960 Hepatitis C Screening 1976 RSV Patients and Patients Aged 60 years or older (1 - Risk 60-74 years 1-dose series) 2018 Depression Screening 04/17/2025 04/17/2024, 04/17/20 24 Mammogram 05/13/2025 05/13/2024, 11/03/2023, 05/08/2023, Additional history exists Alcohol/Substance Use Screening 05/19/2025 05/19/2024 Cervical Cancer Screening 06/15/2025 HPV/Cotest 06/15/2025 05/07/2018 Pap Smear 06/15/2025 06/15/2020 SDOH Screening 08/24/2025 08/24/2024 Tobacco Screening 11/03/2025 11/03/2024 Colonoscopy 08/14/2027 08/14/2022, 08/14/2019 Colorectal Cancer Screening [...] Procedure Name Priority Date/Time Associated Diagnosis Comments CULTURE, URINE, ROUTINE Routine 08/24/2024 12:00 PM EST Abdominal discomfort in right lower quadrant BI MAMMOGRAM SCREENING TOMOSYNTHESIS BILATERAL Routine 05/13/2024 2:02 PM EST LIPID PANEL, STANDARD Routine 03/20/2024 12:00 AM EDT Hypertension, unspecified type Statin intolerance HM COLONOSCOPY Routine 08/14/2022 3:12 PM EST HM PAP/HPV Routine 06/15/2020 12:00 AM EST DAVE HISTORICAL HPV MRNA E6/E7 Routine 05/07/2018 10:00 AM EST from Last 3 Months or Most Recently Relevant to Health Maintenance Results * Culture, Urine, Routine (08/24/2024 12:00 PM EST) Urine Urine specimen obtained by clean catch procedure / Unknown 08/24/2024 12:00 PM EST 08/24/2024 4:40 PM EST Comment:UACC Narrative [facility] - 08/26/2024 10:07 AM EST Urine Culture No growth. Specimen Source: Urine clean catch us Alba Marcum NP LAB MICROBIOLOGY - GENERAL ORDER TASHIA Final Result [facility] [address] [place] [address] [phone] * BI Mammogram Screening Tomosynthesis Bilateral (05/13/2024 2:02 PM EST) Anatomical Region Laterality Modality Breast Bilateral Mammography 05/13/2024 2:02 PM EST Narrative 05/22/2024 8:48 AM EST ? [facility] [place] ? [address] ?[place] [id number] ? Mammography Report ? Signed ? Patient: Christiano,Kari ?MR#: [id number] ?? [id number] ? : 1960 ?Acct:[id number] ? Age/Sex: 63 / F ?ADM Date: 11/13/24 ? Loc: HO.MAMMO ? Attending : Apolinar Name MD ? Ordering Physician: Name,Apolinar MD ?Results: 1Negative ? Date of Service: 05/13/24 ?Follow Up: 1 Year From Orig ?? inal Mammogram ? Procedure(s): MM tomosynthesis screening BI ?? Accession Number(s): [id number] ? cc: Name,Apolinar HAINES ? EXAMINATION: ?? MM SCREENING DIGITAL BREAST [...] ??Samantha Payton DO ??05/22/2024 08:45 AM EST ?? RP ? Dictated By: ?Samantha Payton DO ? Signed By: ?<Electronically signed by Samantha Payton, DO in OV> ? 05/22/24 0845 ? DD/ 1402 ? TD/TT: 05/13/24 1430 ? Class B Driver: ? Procedure Note Sara, Image - 11/22/2024 [facility] [address] [place] [address] Mammography Report Signed Patient: Trevor Alvarado#: [id number] : 9Acct:[id number] Age/Sex: 63 / FADM Date: 05/13/24 Loc: HO.MAMMO Attending Dr: Apolinar Koenig MD Ordering Physician: Apolinar Koenig MDResults: 1Negative Date of Service: 05/13/24Follow Up: 1 Year From Orig inal Mammogram Procedure(s): MM tomosynthesis screening BI Accession Number(s): [id number] cc: Apolinar Koenig MD EXAMINATION: MM SCREENING [...] by: Samantha Payton DO 05/22/2024 08:45 AM EST Dictated By: Samantha Payton DO Signed By: <Electronically signed by Samantha Payton DO in OV> 05/22/24 0845 DD/ 1402 TD/TT: 05/13/24 1430 Class B Driver: Apolinar Koenig MD IM BI PROCEDURES Final Result * (ABNORMAL) Lipid Panel, Standard (03/20/2024 12:00 AM EDT) Triglycerides 173(H) <150 mg/dL [facility] Comment:Desirable Triglyceri de: less than 150 mg/dLBorderline High Triglyceride 150-199 mg/dLHigh Triglyceride: 200-499 mg/dLVery High Triglyceride: greater than or equal to 5OO mg/dL Cholesterol 213(H) <200 mg/dL [facility] Comment:Desirable Cholestero l: less than 200 mg/dLBorderline High Cholesterol: 200-239 mg/dLHigh Cholesterol: greater than 239 mg/dL LDL Cholesterol Calculated 138(H) <100 mg/dL [facility] Comment:Desirable LDL: less than 100 mg/dLNear Optimal/Above Optimal LDL: 110- 129 mg/dLBorderline High LDL: 130-159 mg/dLHigh LDL: 160-189 mg/dLVery High LDL: greater than or equal to 190 mg/dL HDL Cholesterol 41 >40 mg/dL [facility] Comment:Desirable HDL: great er than 40 mg/dL Note: This HDL assay may give artificially low results in patients with liver disease. Blood Venous blood specimen / Unknown 03/20/2024 03/20/2024 Apolinar Koenig MD LAB BLOOD ORDERABLES Final Resul t [facility] [address] [place] [phone] * Colonoscopy (08/14/2022 3:12 PM EST) Pathologist [facility] Colonoscopy Normal Normal Narrative Prerna Judd - 08/14/2022 3:12 PM EST Recommended 5 year follow up us Historical Provider HEALTH MAINTENANCE Final Result * Hm Pap Smear (06/15/2020 12:00 AM EST) Historical Provider HEALTH MAINTENANCE Final Result * HPV mRNA E6/E7 (05/07/2018 10:00 AM EST) HPV mRNA E6/E7 Not Detected NOT DETECTED [facility] Comment: This test was performed using the APTIMA(R) HPV Assay ([employer] This assay detects E6/E7 viral messenger RNA (mRNA) from 14 high-risk HPV types (16,18,31,33,35,39,45,51, 52,56,58,59,66,68). For additional information please refer to: http://education.Liveset/faq/BIU214r6 (This link is being provided for informational/ educational purposes only.) The analytical performance characteristics of this assay have been determined by [employer] [place], [place]. The modifications have not been cleared or approved by the FDA. This assay has been validated pursuant to the CLIA regulations and is used for clinical purposes. Test Performed by [facility] [place] [facility], [employer] [facility] [place], [address] [place] [address] Layo Moss M.D., Ph.D., Director of Laboratories , CLIA [id number] Please note: ??Effective 03/12/2016, HPV testing will be performed using [employer] APTIMA test which targets mRNA. Detecting mRNA instead of DNA, as in older methods, offers significant improvements in specificity. 05/07/2018 10:0 0 AM EST Rosanna Puente CNM HISTORICAL/NON ORDERABLE LABS Final Result [facility] [address] from Last 3 Months or Most Recently Relevant to Health Maintenance Insurance [employer] MEDICARE REPLACEMENT [facility] STANDARD Care Teams Metal Caster Relationship Specialty Start Date End Date Name, MD Apolinar [address] [place] [address] PCP - General Family Medicine 07/01/18
--- OUTSIDE RECORDS SUMMARY | 2024-11-04 15:16 | XMS_ITS | Encounter Summary ---
Author Organization [employer] Address [address] [facility] 7t [place] [address] Care Team Providers Care Sausage Cutter Name Role Phone Name, Apolinar HAINES Primary Care Provider [phone] Encounter Details Date Type Department Care Team (Late st Contact Info) Description 07/04/2022 Orders Only [facility] MED & PEDS [address] [place] [address] Debbi Alas LPN Social History Tobacco Use [...] Description 02/10/2025 3:45 PM EDT Office Visit [facility] MEDICINE [address] [place] [address] Name, MD Apolinar [address] [place] [address] documented as of this encounter Procedures Procedure Name Priority Date/Time Associated Diagnosis Comments SURESWAB(R) ADVANCED VAGINITIS, TMA Routine 10/25/2022 11:32 AM EDT documented in this encounter Results * SureSwab?? Advanced Vaginitis, TMA (10/25/2022 11:32 AM EDT) Trichomonas DNA Probe Negative Negative [facility] Gardnerella DNA Probe Negative Negative [facility] Ashley DNA Probe Negative Negative [facility] 10/25/2022 11:3 2 AM EDT 10/25/2022 3:51 PM EDT [facility] Exter nal Provider LAB BODY FLUIDS AND STOOLS ORDERABLES Final Result Performing Organization Address City/State/[facility] Co de Phone Number [facility] [address] [place] [address] [phone] documented in this encounter Visit Diagnoses Not on filedocumented in this encounter Care Teams Sausage Cutter Relationship Specialty Start Date End Date Name, MD Apolinar [address] [place] [address] PCP - General Family Medicine 07/01/18 documented as of this encounter
--- OUTSIDE RECORDS SUMMARY | 2024-11-04 15:16 | XMS_ITS | Encounter Summary ---
Author Organization [employer] [facility] Address [address] [facility] 7t [place] [address] Care Team Providers Care Registrar Assistant Name Role Phone Name, Apolinar HAINES Primary Care Provider [phone] Reason for Visit * Reason Comments Med Refill Encounter Details Date Type Department Care Team (Late st Contact Info) Description 06/05/2022 Refill [facility] MEDICINE [address] [place] [phone] Apolinar Koenig MD [address] [place] [phone] Social History Tobacco Use Types Packs/Day Years [...] Description 02/10/2025 3:45 PM EDT Office Visit [facility] MEDICINE [address] [place] [phone] Apolinar Koenig MD [address] [place] [phone] documented as of this encounter Visit Diagnoses Not on filedocumented in this encounter Care Teams Registrar Assistant Relationship Specialty Start Date End Date Apolinar Koenig MD [address] [place] [phone] PCP - General Family Medicine 07/01/18 documented as of this encounter
--- OUTSIDE RECORDS SUMMARY | 2024-11-04 15:16 | XMS_ITS | Encounter Summary ---
Author Organization [employer] [facility] Address [address] [facility] 7t [place] [address] Care Team Providers Care Glass Beveller Name Role Phone Name, Apolinar HAINES Primary Care Provider [phone] Reason for Visit * Reason Comments Med Refill Encounter Details Date Type Department Care Team (Late st Contact Info) Description 06/11/2022 Refill [facility] MEDICINE [address] [place] [phone] Apolinar Koenig MD [address] [place] [phone] Social History Tobacco Use Types Packs/Day Years [...] 3:45 PM EDT Office Visit [facility] MEDICINE [address] [place] [phone] Apolinar Koenig MD [address] [place] [address] documented as of this encounter Visit Diagnoses Not on filedocumented in this encounter Care Teams Glass Beveller Relationship Specialty Start Date End Date Apolinar Koenig MD [address] [place] [phone] PCP - General Family Medicine 07/01/18 documented as of this encounter
--- OUTSIDE RECORDS SUMMARY | 2024-11-04 15:16 | XMS_ITS | Encounter Summary ---
Author Organization [employer] Address [address] [facility] 7t [place] [address] Care Team Providers Care Watch Hairspring Assembler Name Role Phone Name, Apolinar HAINES Primary Care Provider [phone] Reason for Visit * Reason Onset Date Comments FYI 01/11/2023 Encounter Details Date Type Department Care Team ([facility] st Contact Info) Description 01/11/2023 Telephone [facility] MEDICINE [address] [place], [place] [phone] Name, MD Apolinar [address] [place] [address] Social History Tobacco Use Types Packs/Day Years [...] 02/10/2025 3:45 PM EDT Office Visit [facility] MEDICINE [address] [place] [address] Name, MD Apolinar [address] [place] [address] documented as of this encounter Visit Diagnoses Not on filedocumented in this encounter Additional Health Concerns Assessment Noted Time PHQ-9 Depression Total Score: 5 10/11/19 23 4:18 PM EDT documented as of this encounter Care Teams Watch Hairspring Assembler Relationship Specialty Start Date End Date Name, MD Apolinar [address] [place] [phone] PCP - General Family Medicine 07/01/18 documented as of this encounter
--- OUTSIDE RECORDS SUMMARY | 2024-11-04 15:16 | XMS_ITS | Encounter Summary ---
Author Organization [employer] Address [address] [facility] 7t [place] [address] Care Team Providers Care Clamshell Operator Name Role Phone Name, Apolinar HAINES Primary Care Provider [phone] Encounter Details Date Type Department Care Team (Late st Contact Info) Description 11/16/2022 Abstract [facility] MEDICINE [address] [place] [address] [phone] Name, MD Apolinar [address] [place] [address] [phone] Social History Tobacco Use Types Packs/Day Years [...] EDT Office Visit [facility] MEDICINE [address] [place] [address] [phone] NameApolinar MD [address] [place] [address] [phone] documented as of this encounter Procedures Procedure Name Priority Date/Time Associated Diagnosis Comments COLONOSCOPY Routine 08/14/2022 3:12 PM EST PAP/HPV Routine 06/15/2020 12:00 AM EST documented in this encounter Results * Hm Colonoscopy (08/14/2022 3:12 PM EST) Colonoscopy Normal Normal Narrative Prerna Judd - 08/14/2022 3:12 PM EST Recommended 5 year follow up us Historical Provider HEALTH MAINTENANCE Final Result * Pap Smear (06/15/2020 12:00 AM EST) us Historical Provider HEALTH MAINTENANCE Final Result documented in this encounter Visit Diagnoses Not on filedocumented in this encounter Additional Health Concerns Assessment Noted Time PHQ-9 Depression Total Score: 5 10/11/19 23 4:18 PM EDT documented as of this encounter Care Teams Clamshell Operator Relationship Specialty Start Date End Date Name, MD Apolinar [address] [place] [address] PCP - General Family Medicine 07/01/18 documented as of this encounter
--- OUTSIDE RECORDS SUMMARY | 2024-11-04 15:16 | XMS_ITS | Encounter Summary ---
Author Organization [employer] Address [address] [facility] 7t [place] [address] Care Team Providers Care Manager Talent Acquisition Name Role Phone Name, Apolinar HAINES Primary Care Provider [phone] Reason for Visit * Reason Onset Date Comments triage 08/02/2022 Encounter Details Date Type Department Care Team (Late st Contact Info) Description 08/02/2022 Telephone [facility] MEDICINE [address] [place] [address] [phone] NameApolinar MD [address] [place] [address] [phone] triage Social History Tobacco Use Types Packs/Day [...] Description 02/10/2025 3:45 PM EDT Office Visit [address] [phone] Name, MD Apolinar [address] [place] [address] [phone] documented as of this encounter Visit Diagnoses Not on filedocumented in this encounter Care Teams Manager Talent Acquisition Relationship Specialty Start Date End Date Name, MD Apoilnar [address] [place] [address] PCP - General Family Medicine 07/01/18 documented as of this encounter
[2024-11-04 16:44] LABS: Alanine Aminotransferase 22 U/L (0-31); Albumin Level 4.6 g/dL (3.5-5.0); Alkaline Phosphatase 89 U/L (39-117); Anion Gap 13 (12-20); Aspartate Amino Transferase 20 U/L (5-31); Bilirubin Total 0.7 mg/dL (0.0-1.0); Blood Urea Nitrogen 21 mg/dL (9-16); Carbon Dioxide 27 mmol/L (22-29); Chloride 105 mmol/L (96-108); Cholesterol 230 mg/dL (<200); Estimated Glomerular Filt Rate > 60; Glucose Random 101 mg/dL (60-115); HDL Cholesterol 42 mg/dL (>40); LDL Cholesterol Calculated 142 mg/dL (<100); Sodium 141 mmol/L (135-145); Total Protein 7.8 g/dL (6.5-8.0); Triglycerides 234 mg/dL (<150)
== END 2024-11-04 13:59 | disposition home or self-care (01) ==
LOC: HO.HHCL 13:58
PROVIDERS: Visit Provider Internal Medicine Geriatric Medicine
DX: I10 Essential (primary) hypertension (principal); E78.00 Pure hypercholesterolemia, unspecified
CPT/HCPCS: 36415; 80053; 80061

== ENCOUNTER 2024-12-17 14:18 | Outpatient (AMB) | payer MEDICARE, SELFPAY ==
[2024-12-17 14:21] VITALS: BP 112/74; BMI 28.6
--- NOTE | 2024-12-17 14:21 | MHC.OFFVIS ---
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 She is doing well with slot shift manager concerns: external itching intermittently prolonged period of time. Predominant area of the labia majora bilaterally and occasionally in the groin region. Uses mild soap and cotton underwear has tried many [id number] creams without success. She denies any discharge, odors, urinary symptoms or pelvic pain. Currently sexually active. Denies any vaginal dryness. Attempting to eat a healthy diet with calcium and vitamin D and stays active with exercise. Last pap smear; 2019, negative. Last mammogram; 2023. Colonoscopy is planned. Denies any family history of ovarian or colon cancer, FH breast cancer-sister. 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 Sexual orientation: Straight/Heterosexual Gender identity: Female Female Reproductive History Menstrual Age of Menarche: 11 control method: permanent sterilization Permanent Sterilization: BTL Menopause type: natural Total pregnancies: 5 Full term: 5 Number of Living Children: 5 Date of last pap smear: 06/15/20 (neg pap and hpv) Date of Mammogram: 05/13/24 (Birad 1) Review of Systems Const All systems reviewed & are unremarkable except as noted in HPI and below Reports as per HPI Eyes Reports no additional complaints ENT Reports no additional complaints Card Reports no additional complaints Resp Reports no additional complaints GI Reports as per HPI and Reports no additional complaints Reports as per HPI Musc Reports no additional complaints Skin/Breast Reports as per HPI Neuro Reports no additional complaints Psych Reports no additional complaints Endo Reports no additional complaints Anil/Lymph Reports no additional complaints Aller/Immun Reports no additional complaints Physical Exam Vital Signs: Last Vital Signs BP 112/74 12/17/24 14:21 BMI result Body Mass Index 28.6 Const General: cooperative, healthy appearing, no acute distress, well developed and alert Orientation/consciousness: patient oriented x3 HEENT Head: Yes normal to inspection Eyes General: appearance normal, both eyes and all related structures Neck Neck: Yes normal visual inspection Thyroid: Thyroid normal Chest Chest palpation & inspection: normal inspection of the chest and other (no puckering, dimpling, peau de orange, retraction, discharge, masses) Breast/axilla inspection: normal inspection of the breasts Breast/axilla palpation: normal palpation of the breasts Resp Effort & Inspection: normal respiratory effort GI Inspection: Yes normal to inspection Palpation (GI): Soft to palpation Rectal Exam - Female: deferred General: Yes bladder normal to palpation External Female Exam: normal external appearance (Prominent labia majora appears subtle chronic inflammation appearance) and normal appearance of the urethra Speculum Exam - Vagina: normal appearance of the vagina, normal palpation and normal vaginal discharge Speculum Exam - Cervix: normal appearance of the cervix and normal palpation Bimanual exam- vagina & uterus: normal bimanual exam, normal palpation, uterine size normal, bladder normal to palpation, normal palpation and non-tender Bimanual Exam- Adnexa, other: no masses Skin General skin exam: no rashes or lesions noted Rashes: no rashes Neuro General: patient oriented x3 Cognition (Neuro): normal cognition Extrem General: Yes normal to inspection Psych Attitude: cooperative Thought process: Normal thought process present Assessment & Plan Assessment & Plan (1) Vulvar irritation: Code(s): N90.89 - Other specified noninflammatory disorders of vulva and perineum Category: Medical (2) Atrophic vaginitis: Code(s): N95.2 - Postmenopausal atrophic vaginitis Category: Medical Plan: Discussed vulvar care, avoid soaps, sent it products, use of cotton loose underwear, avoid rubbing or scratching, plan treatment with topical corticosteroid and recheck area as needed patient advised to call if no improvement. The patient expressed understanding and agreement with the plan of care. All of her questions and concerns were addressed to the best of my ability. Total time I personally spent on visit and management today: ?20 minutes. Time spent included review of pertinent office notes in the electronic health record; review of laboratory and imaging results; review of personal family medical history; performing physical exam; discussing diagnosis and plan of care with the patient; documenting the encounter in the EMR. (3) Encounter for well woman exam with routine gynecological exam: Code(s): Z01.419 - Encounter for gynecological examination (general) (routine) without abnormal findings Category: Medical (4) Encounter for well woman exam with routine gynecological exam: Code(s): Z01.419 - Encounter for gynecological examination (general) (routine) without abnormal findings Category: Medical Plan Discussed: Current recommendations for pap smears per ASCCP guidelines. Breast awareness, periodic self breast exams and yearly mammogram. Maintain a healthy lifestyle, well balanced diet including Calcium 1,200 mg and Vitamin D 600 IU daily, and routine exercise. Contact the office with any postmenopausal bleeding. Patient verbalizes understanding and agrees to the plan of care. She was given opportunity to ask questions and all questions were answered to the best of my ability. RTO in 1 year for annual slot shift manager exam. This note is constructed using voice recognition software. While every effort has been made to ensure accuracy, photogrammetric stereo compiler errors may have been included. Orders: Orders Bacterial Vaginosis Panel Today N89.8 - Other specified noninflammatory disorders of vagina Medications: New betamethasone, augmented 0.05 % may use for up to 2 wks then every other day for 2 wks, then prn for two wks 1 appl topical BID PRN 45 grams 1RF chronic puritis 7 days Coding Level of Care Code Est Pt Level 2 (52266) Est Pt Prev Care >65y(57019) Diagnoses Vulvar irritation N90.89 Atrophic vaginitis N95.2 Encounter for well woman exam with routine gynecological exam Z01.419
--- OUTSIDE RECORDS SUMMARY | 2024-12-17 15:32 | XMS_ITS | Encounter Summary ---
Author Organization [employer] Address [address] [facility] 7t [place] [address] Care Team Providers Care Imagery Analyst Name Role Phone Name, Apolinar HAINES Primary Care Provider [phone] Reason for Visit * Reason Comments Med Refill Encounter Details Date Type Department Care Team ([facility] st Contact Info) Description 06/25/2023 Refill [facility] MEDICINE [address] [place] [address] Name, MD Apolinar [address] [place], [place] [phone] Asthma, unspecified asthma severity, unspecified whether complicated, [...] Description 02/10/2025 3:45 PM EDT Office Visit [facility] MEDICINE [address] [place] [phone] Name, MD Apolinar [address] [place] [address] documented as of this encounter Visit Diagnoses Diagnosis Asthma, unspecified asthma severity, unspecified whether complicated, unspecified whether persistent documented in this encounter Additional Health Concerns Assessment Noted Time PHQ-9 Depression Total Score: 5 10/11/19 23 4:18 PM EDT documented as of this encounter Care Teams Imagery Analyst Relationship Specialty Start Date End Date Name, MD Apolinar [address] [place] [address] PCP - General Family Medicine 07/01/18 documented as of this encounter
== END 2024-12-17 14:56 | disposition home or self-care (01) ==
LOC: HO.HWS 14:18
PROVIDERS: PCP Internal Medicine Geriatric Medicine; Visit Provider Advanced Practice Midwife
DX: N90.89 Other specified noninflammatory disorders of vulva and perineum (principal); N95.2 Postmenopausal atrophic vaginitis; Z01.419 Encounter for gynecological examination (general) (routine) without abnormal findings
CPT/HCPCS: 99212; 99397; 99459

== ENCOUNTER 2024-12-17 14:18 | Outpatient (REF) | payer MEDICARE, SELFPAY ==
[2024-12-17 20:20] LABS: Bacterial Vaginosis PCR NEGATIVE (Negative); Candida Group PCR DETECTED (Not Detect); Candida glab krusei PCR NOT DETECTED (Not Detect); Trichomonas vaginalis PCR NOT DETECTED (Not Detect)
== END 2024-12-17 14:19 | disposition home or self-care (01) ==
LOC: HO.LAB 14:18
PROVIDERS: PCP Internal Medicine Geriatric Medicine; Visit Provider Advanced Practice Midwife
DX: Z01.411 Encounter for gynecological examination (general) (routine) with abnormal findings (principal); N95.2 Postmenopausal atrophic vaginitis
CPT/HCPCS: 81515; 99212; 99397

== ENCOUNTER 2025-04-13 13:51 | Outpatient (REF) | payer MEDICARE, SELFPAY ==
--- NOTE | ~2025-04-13 | XR_ITS ---
EXAMINATION: XR KNEE, LEFT CLINICAL INFORMATION: M25.561 - Pain in right knee COMPARISON: None available. TECHNIQUE: Three views of the left knee. FINDINGS: There is mild narrowing of the medial joint space. There are small marginal osteophytes. Intercondylar tubercles are peaked. There is no joint effusion. XR/XR knee LT 3V IMPRESSION: Mild osteoarthritis. Electronically signed by: Matthew Rivero MD 04/13/2025 03:31 PM EDT
--- NOTE | ~2025-04-13 | XR_ITS ---
EXAMINATION: XR KNEE, RIGHT CLINICAL INFORMATION: M25.561 - Pain in right knee COMPARISON: None available. TECHNIQUE: Three views of the right knee. FINDINGS: There is mild narrowing of the medial joint space. Small marginal osteophytes are present involving patellofemoral joint and medial compartment and intercondylar spines. No joint effusion is present. XR/XR knee RT 3V IMPRESSION: Mild osteoarthritis. Electronically signed by: Matthew Rivero MD 04/13/2025 03:32 PM EDT
--- OUTSIDE RECORDS SUMMARY | 2025-04-13 17:45 | XMS_ITS | Encounter Summary ---
Author Organization [facility] Address [address] [place] [address] Care Team Providers Care Rubber Mixer Name Role Phone Name, Apolinar HAINES Primary Care Provider Unavailabl e Encounter Details Date Type Department Care Team Description 12/23/2010 Night Triage Doc Medical Records [address] [place] [address] Abstract, Provider Social History Tobacco Use Types Packs/Day Years Used Date Smoking Tobacco: Never Smokeless Tobacco: Never Alcohol Use Standard Drinks/Week Comments No 0 (1 standard drink = 0.6 oz pur e alcohol) Sex Assigned at Date Recorded Not on file Job Start Date Occupation Industry Not on file Not on file Not on file documented as of this encounter Plan of Treatment Not on file documented as of this encounter Visit Diagnoses Not on filedocumented in this encounter Care Teams Rubber Mixer Relationship Specialty Start Date End Date Name, MD Apolinar PCP - General 08/14/07 documented as of this encounter
--- OUTSIDE RECORDS SUMMARY | 2025-04-13 17:45 | XMS_ITS | Encounter Summary ---
Author Organization [facility] Address [address] [place] [address] Care Team Providers Care Tracing Lathe Set Up Operator Name Role Phone Apolinar Koenig MD Primary Care Provider Unavailabl e Reason for Visit * Reason Onset Date Comments Provider Call Back 10/30/2011 Encounter Details Date Type Department Care Team Description 10/30/2011 Telephone Adult Medicine [address] [address] Name, MD Apolinar Provider Call Back Social History Tobacco Use Types Packs/Day Years Used Date Smoking Tobacco: Never Smokeless Tobacco: Never Alcohol Use Standard Drinks/Week Comments No 0 (1 standard drink = 0.6 oz pur e alcohol) Sex Assigned at Date Recorded Not on file Job Start Date Occupation Industry Not on file Not on file Not on file documented as of this encounter Miscellaneous Notes * Telephone Encounter - Mariana Chao NP - 10/30/2011 4:57 PM EDT LM again. * Telephone Encounter - Bailey Proctor - 10/30/2011 3:46 PM EDT Caller requesting call back from provider: Is the caller the patient? YES If caller is not the patient, what is the callers name? Callers relationship to patient? If person calling is not the patient themselves, is there a verbal release in FYI or permanent comments for this person: YES Reason for call back: The patient is calling to speak with Adilia Chao regarding her appt with Cardiology. Please call the patient in the evening or tomorrow after 2pm. Caller offered to speak with the nurse for assistance: YES Response: Adilia Chao documented in this encounter Plan of Treatment Not on file documented as of this encounter Visit Diagnoses Not on filedocumented in this encounter Care Teams Tracing Lathe Set Up Operator Relationship Specialty Start Date End Date Name, MD Apolinar PCP - General 08/14/07 documented as of this encounter
--- OUTSIDE RECORDS SUMMARY | 2025-04-13 17:45 | XMS_ITS | Encounter Summary ---
Author Organization [facility] Address [address] [place] [address] Care Team Providers Care Detacker Name Role Phone Name, Apolinar HAINES Primary Care Provider Unavailabl e Encounter Details Date Type Department Care Team Description 08/07/2015 Walk In Clinic Visit Medical Records [address] [place] [address] Social History Tobacco Use Types Packs/Day Years [...] on filedocumented in this encounter Care Teams Detacker Relationship Specialty Start Date End Date Name, MD Apolinar PCP - General 08/14/07 documented as of this encounter
--- OUTSIDE RECORDS SUMMARY | 2025-04-13 17:45 | XMS_ITS | Encounter Summary ---
Author Organization [facility] Address [address] [place] [address] Care Team Providers Care Water Operator Name Role Phone Name, Apolinar HAINES Primary Care Provider Unavailabl e Reason for Visit * Reason Comments E-prescribe Rx Request Encounter Details Date Type Department Care Team Description 11/20/2020 Refill Pulmonology - [place] [address] [facility] [address] [place] [address] Zac Cerda MD [address] [place] [id number] E-prescribe Rx Request Social History Tobacco Use Types Packs/Day [...] encounter Miscellaneous Notes * Telephone Encounter - Mirela Vasques - 11/21/2020 10:45 AM EDT Wind[place] 04/11/2020 Nov 12/09/2020 documented in this encounter Plan of Treatment Not on file documented as of this encounter Visit Diagnoses Diagnosis Asthma-COPD overlap syndrome (HCC) documented in this encounter Care Teams Water Operator Relationship Specialty Start Date End Date Name, MD Apolinar PCP - General 08/14/07 documented as of this encounter
--- OUTSIDE RECORDS SUMMARY | 2025-04-13 17:45 | XMS_ITS | Clinical Summary ---
Author Organization [address] [place] [address] Address [address] [place] [address] Phone Care Team Providers Care Financial Services Associate Name Role Phone Name, Apolinar HAINES Primary Care Provider [phone] Allergies Active Allergy Reactions Criticality Noted Date Comments Lisinopril 05/14/2011 Dry cough Medications fluticasone propion-salmete roL (ADVAIR DISKUS) 500-50 mcg/dose diskus inhaler Inhale 1 puff by mouth every 12 (twelve) hours. 1 Active SUMAtriptan (IMITREX) 100 mg tablet Take 100 mg by mouth daily as needed. May repeat dose once after 2 hours, if needed. Active busPIRone (BUSPAR) 5 mg tablet Take 5 mg by mouth 2 times daily. Active albuterol HFA (PROAIR HFA ; PROVENTIL HFA ; VENTOLIN HFA) 90 mcg/actuation inhaler Inhale 2 puffs by mouth every 4 (four) hours if needed. Active loratadine (CLARITIN) 10 mg tablet Take 1 tablet (10 mg total) by mouth 1 (one) time each day. 5 Active acetaminophen (TYLENOL) 325 mg tablet Take 650 mg by mouth every 6 hours as needed. Active ezetimibe (ZETIA) 10 mg tablet Take 1 tablet (10 mg total) by mouth daily. 4 Active losartan-hydroC HLOROthiazide (HYZAAR) 100-25 mg per tablet Take 1 tablet by mouth 1 (one) time each day. Active sertraline (ZOLOFT) 100 mg tablet Take 1 tablet (100 mg total) by mouth 1 (one) time each day. Active cholecalciferol (VITAMIN D-3) 25 mcg (1,000 unit) tablet Take 1 tablet (1,000 Units total) by mouth 1 (one) time each day. 5 Active metoprolol succinate (TOPROL-XL) 25 mg 24 hr tablet Take 1 tablet (25 mg total) by mouth 1 (one) time each day. 5 Active fluticasone propionate (FLONASE) 50 mcg/actuation nasal spray Administer 2 sprays into each nostril 1 (one) time each day. 16 g 5 Active montelukast (SINGULAIR) 10 mg tablet Take 1 tablet (10 mg total) by mouth at bedtime. 30 each 5 Active Active Problems Problem Noted Date Diagnosed Date COPD (chronic obstructive pu lmonary disease) ([facility] V24, [facility] V28) 01/02/2018 History of Helicobacter pylori infection 018 HTN (hypertension) 07/11/2011 Vitamin D deficiency 05/21/2011 Allergic rhinitis 02/15/2011 Leg cramps, sleep related 02/24/2010 Degenerative arthritis of lumbar spine 0 Anxiety 08/12/2009 Low back pain 05/12/2009 Migraine 06/11/2008 High cholesterol 11/25/2007 Mild persistent asthma 08/15/2007 Resolved Problems Problem Noted Date Diagnosed Date Resolved Date Acute respiratory failure ([facility] V24, [facility] V28) 12/07/2024 12/08/2024 Immunizations Immunization Administration Dates Next Due Influenza trivalent, with preservative (Fluzone; Afluria) 6mo and older 04/14/2015,04/06/2014,03/10/2013,2011,03/15/2011,05/12/2010,04/29/2008 Tdap Tetanus diptheria acell ular pertussis (Boostrix; Adacel) 7yo and older 05/14/2011 Surgical History Surgery Date Site/Laterality Comments TUBAL LIGATION PROCEDURE: HISTORICAL TUBAL LIGATION Medical History Medical History Date Comments Unspecified essential hypertension DX:Unspecified essential hypertension Historical Medical DX 08/15/2007 DX:HTN COPD (chronic obstructive pu lmonary disease) ([facility] V24, [facility] V28) 01/02/2018 DX:COPD (chronic o bstructive pulmonary disease) (HCC) History of Helicobacter pylo ri infection 01/02/2018 [...] drink = 0.6 oz pur e alcohol) Interpersonal Safety Answer Date Record ed Physical Abuse Unrecognized value 12/07/2024 Verbal Abuse Unrecognized value 12/07/2024 Comments Unknown Sex and Gender Information Value Date Recorded Sex Assigned at Not on file Legal Sex Female 4:57 AM EST Gender Identity Not on file Sexual Orientation Not on file Obstetrics History Last Filed Vital Signs Vital Sign Reading Time Taken Comments Blood Pressure 117/73 12/08/2024 8:24 AM EDT Pulse 74 12/08/2024 8:24 AM EDT Temperature 35.6 C (96 F) 12/08/2024 8:24 AM EDT Respiratory Rate 15 12/08/2024 8:24 AM EDT Oxygen Saturation 92% 12/08/2024 8:24 AM EDT Inhaled Oxygen Concentration - - Weight 83.9 kg (185 lb) 12/07/2024 11:18 AM EDT Height 165.1 cm (5' 5 ) 12/07/2024 11:18 AM EDT Body Mass Index 30.79 12/07/2024 11:18 AM EDT Plan of Treatment Upcoming Encounters Date Type Department Care Team (Late st Contact Info) Description 05/07/2025 2:15 PM EST Office Visit Pulmonology - [place] [address] [facility] [address] [place] [address] Zac Cerda MD [address] [facility] [address] [place] [address] Health Maintenance Due Date Last Done Comments Breast Cancer Screening 1960 Colorectal Cancer Screening: Colonoscopy 1960 RSV Immunization Adult Patients (1 - Risk 60-74 years 1-dose series) 2018 Medicare Annual Wellness Visit 06/09/2022 Osteoporosis Screening (Bone Density Screening) 06/09/2022 Social Influencers of Health Screening 06/09/2022 Depression Screening 07/01/2024 COVID-19 Vaccine ( season) 2025 05/19/2024, 10/15/2023, 10/17/2022, Additional history exists Influenza Vaccine (#1) 2025 , 05/07/2023, 05/22/2022, Additional history exists Falls Risk Assessment 12/08/2025 12/08/2024 Hypertension/CHF/CAD Annual BMP Blood Test 12/08/2025 12/08/2024, 12/07/2024, 11/04/2024, Additional history exists Cholesterol Screening (Lipid Panel) 11/04/2029 11/04/2024, 03/20/2024, 09/28/2014 DTaP,Tdap,and Td Vaccines (3 - Td or Tdap) 05/07/2033 05/07/2023, 05/14/2011 Hepatitis C Screening Completed 02/11/2012 Zoster Vaccines Completed 07/13/2020, 03/29/2020 Pneumococcal Vaccine: [...] Procedure Name Priority Date/Time Associated Diagnosis Comments BASIC METABOLIC PANEL Routine 12/08/2024 5:22 AM EDT LIPID PANEL Routine 09/28/2014 HEPATITIS C SCREENING Routine 02/11/2012 from Last 3 Months or Most Recently Relevant to Health Maintenance Results * (ABNORMAL) Basic metabolic panel (12/08/2024 5:22 AM EDT) Sodium 138 133 - 145 mmol/L LAB CHEMISTRY METHOD 12/08/2024 7:27 AM [facility] Potassium 4.4 3.5 - 5.5 mmol/L LAB CHEMISTRY METHOD 12/08/2024 7:27 AM [facility] Chloride 104 96 - 110 mmol/L LAB CHEMISTRY METHOD 12/08/2024 7:27 AM [facility] CO2 27 21 - 32 mmol/L LAB CHEMISTRY METHOD 12/08/2024 7:27 AM [facility] Anion Gap 7 3 - 11 LAB CHEMISTRY METHOD 12/08/2024 7:27 AM [facility] Glucose 168(H) 70 - 100 mg/dL LAB CHEMISTRY METHOD 12/08/2024 7:27 AM [facility] BUN 23 5 - 25 mg/dL LAB CHEMISTRY METHOD 12/08/2024 7:27 AM [facility] Creatinine 0.90 0.50 - 1.10 mg/dL LAB CHEMISTRY METHOD 12/08/2024 7:27 AM [facility] eGFR 71 >=60 mL/min/1. 73m2 LAB CHEMISTRY METHOD 12/08/2024 7:27 AM [facility] Comment:Calculation based on the Chronic Kidney Disease Epidemiology Collaboration (CKD-EPI) equation refit without adjustment for race. BUN/Creatinine Ratio 25.6 LAB CHEMISTRY METHOD 12/08/2024 7:27 AM [facility] Calcium 9.7 8.5 - 10.5 mg/dL LAB CHEMISTRY METHOD 12/08/2024 7:27 AM EDT [facility] Blood Venous blood specimen / Unknown Venipuncture / Unknown 12/08/2024 5:22 AM EDT 12/08/2024 6:31 AM EDT Gladys Jackman NP LAB BLOOD ORDERABLES Fin al Result [facility] [address] [place] [address], [place] [phone] * (ABNORMAL) Lipid panel (09/28/2014) LDL/HDL Ratio 4 0 - 4 Triglycerides 142 0 - 150 mg/dL Cholesterol 203(A) 0 - 200 mg/dL HDL 54 >=40 mg/dL LDL Cholesterol 121(A) 0 - 100 mg/dL Blood Venous blood specimen / Unknown Historical Provider LAB BLOOD ORDERABLES Viola l Result * Hepatitis C Screening (02/11/2012) Pathologist [facility] Hepatitis C Screening Abstracted Historical Provider HEALTH MAINTENANCE Final Result from Last 3 Months or Most Recently Relevant to Health Maintenance Insurance MEDICA[place] [employer] MEDICARE ADVANTAGE Advance Directives * Full Code - Confirmed (Latest Code Status on File) Date Activated Date Inactivated Comments 12/07/2024 1:42 PM 12/08/2024 1:57 PM This code sta tus was ascertained in the following way: Code status discussion: discussion with patient To update the patient's code status, place a code status order. Do not modify or discontinue any currently active code status orders. Care Teams Financial Services Associate Relationship Specialty Start Date End Date Name, MD Apolinar [address] [place], [place] PCP - General 08/14/07
--- OUTSIDE RECORDS SUMMARY | 2025-04-13 17:45 | XMS_ITS | Encounter Summary ---
Author Organization [facility] Address [address] [place] [address] Care Team Providers Care Purchasing Administrative Assistant Name Role Phone NameApolinar MD Primary Care Provider Unavailabl e Encounter Details Date Type Department Care Team Description 05/06/2014 Telephone Adult Medicine [address] [address] NameApolinar MD Social History Tobacco Use Types Packs/Day Years [...] encounter Miscellaneous Notes * Telephone Encounter - Yamilex Grant M.A. - 05/06/2014 11:17 AM EST Name this pt: is requesting that an external Referral to a orthopedic be placed due to her backpain, she has a particular one she would like to see that goes by the name Kvng Jarrell Unifon documented in this encounter Plan of Treatment Not on file documented as of this encounter Visit Diagnoses Not on filedocumented in this encounter Care Teams Purchasing Administrative Assistant Relationship Specialty Start Date End Date Apolinar Koenig MD PCP - General 08/14/07 documented as of this encounter
--- OUTSIDE RECORDS SUMMARY | 2025-04-13 17:45 | XMS_ITS | Encounter Summary ---
Author Organization [facility] Address [address] [place] [address] Care Team Providers Care House Worker Name Role Phone Name, Apolinar HAINES Primary Care Provider Unavailabl e Reason for Visit * Reason Onset Date Comments Call-returning From Provider 04/16/2013 Encounter Details Date Type Department Care Team Description 04/16/2013 Telephone Adult Medicine [address] [address] Name, MD Apolinar Call-returning From Provider Social History Tobacco Use Types Packs/Day [...] encounter Miscellaneous Notes * Telephone Encounter - Alyse Ambrocio M.A. - 04/17/2013 11:44 AM EDT [phone] (home) [phone] (work) Left message on machine for patient to return my call. * Telephone Encounter - Tawana Seymour - 04/16/2013 3:18 PM EDT Pt returning call from Alyse documented in this encounter Plan of Treatment Not on file documented as of this encounter Visit Diagnoses Not on filedocumented in this encounter Care Teams House Worker Relationship Specialty Start Date End Date Name, MD Apolinar PCP - General 08/14/07 documented as of this encounter
--- OUTSIDE RECORDS SUMMARY | 2025-04-13 17:45 | XMS_ITS | Encounter Summary ---
Author Organization [facility] Address [address] [place] [address] Care Team Providers Care Deputy Editor In Chief Name Role Phone Name, Apolinar HAINES Primary Care Provider Unavailabl e Encounter Details Date Type Department Care Team Description 10/18/2014 Hotel Staff Member Report Medical Records [address] [place] [address] Kvng Daniels MD Social History Tobacco Use Types Packs/Day [...] on filedocumented in this encounter Care Teams Deputy Editor In Chief Relationship Specialty Start Date End Date Name, MD Apolinar PCP - General 08/14/07 documented as of this encounter
--- OUTSIDE RECORDS SUMMARY | 2025-04-13 17:45 | XMS_ITS | Encounter Summary ---
Author Organization [facility] Address [address] [place] [address] Care Team Providers Care Freight Adjuster Name Role Phone Name, Apolinar HAINES Primary Care Provider Unavailabl e Encounter Details Date Type Department Care Team Description 04/18/2015 Release of Information Medical Records [address] [place] [address] Abstract, Provider Social History Tobacco Use Types [...] on filedocumented in this encounter Care Teams Freight Adjuster Relationship Specialty Start Date End Date Name, MD Apolinar PCP - General 08/14/07 documented as of this encounter
--- OUTSIDE RECORDS SUMMARY | 2025-04-13 17:45 | XMS_ITS | Encounter Summary ---
Author Organization [facility] Address [address] [place] [address] Care Team Providers Care State Comptroller Name Role Phone Name, Apolinar HAINES Primary Care Provider Unavailabl e Reason for Visit * Reason Comments E-prescribe Rx Request Encounter Details Date Type Department Care Team Description 08/24/2020 Refill Pulmonology - [place] [address] [facility] [address] [place] [address] Zac Cerda MD [address] [place] [address] E-prescribe Rx Request Social History Tobacco Use [...] encounter Miscellaneous Notes * Telephone Encounter - Regina Estrada - 08/24/2020 1:55 PM EST Patient would like script to be: E-PRESCRIBED/FAXED TO PHARMACY WHEN WAS THE PATIENT'S LAST APPOINTMENT WITH THE PRESCRIBING PROVIDER? 04/11/20 Does patient have an upcoming appointment? Yes 10/11/20 (THE MEDICATION REQUESTED IS ON THE MED LIST ABOVE) All of the medications requested were on the CURRENT MEDS list Did you check the Pharmacy information above?: YES Patient wants: 30 -day supply Is this a mail order prescription request ? NO Patients current insurance carrier is: Payor: MEDICARE-StatusNet / Plan: [place] / Product Type: MEDICARE [id number] documented in this encounter Plan of Treatment Not on file documented as of this encounter Visit Diagnoses Diagnosis Asthma-COPD overlap syndrome (HCC) documented in this encounter Care Teams State Comptroller Relationship Specialty Start Date End Date Name, MD Apolinar PCP - General 08/14/07 documented as of this encounter
--- OUTSIDE RECORDS SUMMARY | 2025-04-13 17:45 | XMS_ITS | Encounter Summary ---
Author Organization [facility] Address [address] [place] [address] Care Team Providers Care Pocket And Pulley Machine Operator Name Role Phone Name, Apolinar HAINES Primary Care Provider Unavailabl e Encounter Details Date Type Department Care Team Description 06/27/2010 Charter Coordinator Report Medical Records [address] [place] [address] Rene Hill MD Social History Tobacco Use Types Packs/Day Years Used Date Smoking Tobacco: Never Alcohol Use Standard Drinks/Week Comments [...] on filedocumented in this encounter Care Teams Pocket And Pulley Machine Operator Relationship Specialty Start Date End Date Name, MD Apolinar PCP - General 08/14/07 documented as of this encounter
--- OUTSIDE RECORDS SUMMARY | 2025-04-13 17:45 | XMS_ITS | Encounter Summary ---
Author Organization [facility] Address [address] [place] [address] Care Team Providers Care Manager Radio Name Role Phone Name, Apolinar HAINES Primary Care Provider Unavailabl e Encounter Details Date Type Department Care Team Description 09/20/2015 Release of Information Medical Records [address] [place] [address] Abstract, Provider Social History Tobacco Use Types [...] filedocumented in this encounter Care Teams Manager Radio Relationship Specialty Start Date End Date Name, MD Apolinar PCP - General 08/14/07 documented as of this encounter
== END 2025-04-13 13:52 | disposition home or self-care (01) ==
LOC: HO.XRAY 13:51
PROVIDERS: PCP Internal Medicine Geriatric Medicine; Referring Provider Internal Medicine Geriatric Medicine; Visit Provider Nurse Practitioner Family
DX: M51.362 Other intervertebral disc degeneration, lumbar region with discogenic back pain and lower extremity pain (principal); M43.16 Spondylolisthesis, lumbar region; M47.817 Spondylosis without myelopathy or radiculopathy, lumbosacral region; M25.561 Pain in right knee; M25.562 Pain in left knee; G89.29 Other chronic pain
CPT/HCPCS: 73562; 99202

== ENCOUNTER 2025-04-13 13:51 | Outpatient (AMB) | payer MEDICARE, MEDICAID, SELFPAY ==
--- NOTE | 2025-04-13 13:53 | MHC.OFFVIS ---
Vital Signs 04/13/25 13:59 Height 5 ft 5.5 in Weight 173 lb 6 oz BMI 28.4 BP 130/83 Blood Pressure Location Rt brachial Position Sitting Pulse 82 Pulse Source Pulse Oximeter Pulse Oximetry (%) 99 Oxygen Delivery Method Room Air Intake Visit Reasons: Chronic Left-Sided Low Back Pain Intake Note: Pain today 02/07 Family Nurse Practitioner Required: No Accompanied by: Self / Same As Patient Allergies pravastatin Allergy (Mild, Verified 12/17/24 14:21) Joint Pain lisinopril (LISINOPRIL) Allergy (Unknown, Verified 12/17/24 14:21) COUGH HPI Comments Details: The patient is a 64-year-old female presenting with chronic low back pain with right-sided radiculopathy. She reports experiencing this pain for over 10 years, with a history of degenerative changes and grade 1 anterolisthesis at the L5-S1 level. The pain radiates to the right leg and is described as stabbing, shooting, throbbing, and aching, exacerbated by standing, walking, and sitting, with no alleviating factors identified. The patient has previously received back injections at [facility] for the past 10 years, completed physical therapy a year ago with temporary relief, and has tried Tylenol and Biofreeze topical without significant improvement. She has not undergone any back surgeries despite recommendations in the past and has not had an MRI since 2013, which showed similar findings of grade 1 anterolisthesis and mild disc herniation. The patient also has a history of severe arthritis and COPD, with a recent hospitalization in December for a COPD exacerbation. During this hospitalization, she was treated with prednisone, which was noted to be a partial relief for her radicular back pain as well. 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), worsening over the past year - Quality: Stabbing, shooting, throbbing, aching, radiating, tight, burning, numbness and tingling - Location: Low back with radiation to the right leg in L4-L5 distribution; right knee pain - Exacerbating factors: Standing, walking, sitting, climbing stairs - Relieving factors: None, tried Tylenol and topical OTC applications - Interference: Affects daily activities such as cooking, mopping, sweeping, and laundry - Affect: Pain causes fatigue and anger due to inability to perform activities - Analgesia: Current pain level is 8/10, uses Tylenol and BioFreeze with temporary relief - Adverse Effects: None reported from current medications - Activities of Daily Living: Pain interferes with drafter electromechanical and mobility - Aberrant Drug Related Behaviors: None reported Oswestry Low Back Pain Disability Score=29 [facility] Medical History (Updated 04/13/25 @ 14:28 by GIACOMO Esteves) Bilateral knee pain Hyperglycemia COPD (chronic obstructive pulmonary disease) DJD (degenerative joint disease), lumbosacral Chronic left-sided back pain Cataract On beta vaishnavi at home Migraine headache High cholesterol Asthma Hypertension History of depression History of anxiety Surgical History History of excision of epidermal inclusion cyst (03/21/22) History of cataract removal with insertion of prosthetic lens Hx of tubal ligation Family History Sister History of breast cancer Sister Primary cancer of bone marrow Social History Alcohol intake: never Patient Tobacco Use Status: Never used Tobacco Current occupational status: unemployed 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 Sexual orientation: Straight/Heterosexual Gender identity: Female Female Reproductive History Menstrual Age of Menarche: 11 Review of Systems Const Details: - Musculoskeletal: Reports right knee pain and chronic low back pain radiating to the right leg, worsened by physical activity - Neurological: Denies bladder or bowel dysfunction, saddle anesthesia or weakness - Respiratory: Reports history of COPD exacerbation, denies current respiratory symptoms - General: Reports fatigue and anger due to pain All systems reviewed & are unremarkable except as noted in HPI and below Physical Exam Vital Signs: Last Vital Signs Pulse 82 04/13/25 13:59 BP 130/83 04/13/25 13:59 Pulse Ox 99 04/13/25 13:59 Oxygen Delivery Method Room Air 04/13/25 13:59 BMI result Body Mass Index 28.4 General: Appears afebrile. Alert and oriented. Mood and affect appropriate. Follows and participates in conversation appropriately. Respiratory effort is unlabored. No cough. Able to transition from sit to stand unassisted. Ambulates with bilaterally normal heel strike and toe off. General: Yes no CVA tenderness Back/Spine/Pelvis Other: Limited lumbar ROM due to pain. Lumbar extension, axial rotations, flexion and bending down reproduces moderate to severe pain. Demonstrates 5/5 strength of quadriceps bilaterally as well as flexion/dorsiflexion of bilateral feet against resistance. 2+ pedal pulses bilaterally. Straight leg rise with dorsiflexion positive on the right. +1 patellar and achilles reflexes bilaterally. Facet loading test positive bilaterally. Neelam sign, Layo?s, Gaenslen, Pelvic compression and Stinchfield tests are positive bilaterally. Mild groin pain with I/E hip rotations on the right. Valsalva maneuver negative. Back: no CVA tenderness Cervical Spine: cervical ROM normal, cervical muscular tenderness, No Cervical spine scars present and No Cervical spine tenderness Thoracic/Lumbar Spine: thoracic and lumbar spine normal to inspection, No Thoracic/lumbar spine scar(s), Lasegue's sign positive on the right and localized, pain with thoraco-lumbar ROM, paraspinal muscle tenderness, thoraco-lumbar ROM limited, No thoracic spinal tenderness and lumbar spinal tenderness (L4-S1) Sacroiliac joints: bilaterally tender to palpation Extrem General: Yes capillary refill normal, Yes no clubbing, cyanosis or edema and Yes no calf tenderness Right lower extremity: knee (Limited ROM due to pain) Details: normal to inspection, tenderness Location: of the patella and of the medial joint line and crepitus; no swelling, no abrasions, no ecchymosis and no unusual warmth Left lower extremity: knee Details: normal to inspection, tenderness Location: of the medial joint line, normal ROM and crepitus; no swelling, no ecchymosis, no deformity and no unusual warmth Results Reviewed Results Reviewed: XR KNEE, RIGHT 04/13/25 CLINICAL INFORMATION: M25.561 - Pain in right knee COMPARISON: None available. TECHNIQUE: Three views of the right knee. FINDINGS: There is mild narrowing of the medial joint space. Small marginal osteophytes are present involving patellofemoral joint and medial compartment and intercondylar spines. No joint effusion is present. IMPRESSION: Mild osteoarthritis. XR KNEE, LEFT 04/13/25 CLINICAL INFORMATION: M25.561 - Pain in right knee COMPARISON: None available. TECHNIQUE: Three views of the left knee. FINDINGS: There is mild narrowing of the medial joint space. There are small marginal osteophytes. Intercondylar tubercles are peaked. There is no joint effusion. IMPRESSION: Mild osteoarthritis. XR LUMBOSACRAL SPINE 03/19/24 CLINICAL INFORMATION: Chronic low back pain without sciatica FINDINGS: Mild degenerative changes are noted in the spine most marked at L1-L2 and L5-S1 where there is marked grade 1 anterolisthesis of L5 upon S1. Is also mild disc space narrowing at L4-L5. There is generalized osteopenia. Vertebral body heights are well-maintained. No bony destructive lesions. IMPRESSION: Degenerative changes as described above with grade 1 anterolisthesis of L5 upon S1. MR LUMBAR SPINE WITHOUT CONTRAST 12/05/2013 at [facility] HISTORY: Back pain. COMPARISON: None. TECHNIQUE: Sagittal and axial T1-weighted and fast spin echo T2-weighted images were obtained. FINDINGS: T12-L1: There is mild retrolisthesis of T12 with respect to L1. The disc is of diminished height and signal intensity. There is mild broad-based disc herniation more pronounced to the left of midline causing mild flattening of the dural sac without nerve root compression. L1-2: There is retrolisthesis of L1 with respect to L2. The disc is of diminished height and signal intensity. There is mild broad-based disc herniation more pronounced to the left and mild degenerative facet arthropathy without nerve root compression. L2-3: There is slight retrolisthesis. The disc is of diminished height and signal intensity. There is mild diffuse disc bulge and mild degenerative facet arthropathy causing no impression upon the dural sac or nerve roots. L3-4: There is slight retrolisthesis. The disc is of diminished height and signal intensity. There is mild predominantly right lateral disc herniation and degenerative facet arthropathy causing no significant impression upon the dural sac or nerve roots. L4-5: There is slight anterior spondylolisthesis. The disc is of diminished height and signal intensity. There is mild right-sided disc herniation and moderate degenerative facet arthropathy causing no significant impression upon the dural sac or nerve roots. L5-S1: There is grade 1 anterior spondylolisthesis with approximately 5 to 6 mm of anterior displacement secondary to the presence of bilateral spondylolysis. The disc is of diminished height and signal intensity. There is mild diffuse disc bulge and marked degenerative facet arthropathy causing mild flattening of the dural sac and marked bilateral subarticular recess and foraminal stenosis with encroachment upon the L5 nerve roots. There is mild retrolisthesis at T12-L1, L1-2, L2-3, L3-4 and L4-5 and there is grade 1 anterior spondylolisthesis at L5-S1 secondary to underlying bilateral spondylolysis. There are endplate degenerative changes which are fairly marked at L5-S1. There are other minor degenerative changes. There is a benign vertebral hemangioma at L3. The conus terminates at L1 and appears normal. There is no paraspinous mass. There are prominent peripelvic bilateral renal cysts. IMPRESSION: 1. Grade 1 anterior spondylolisthesis at L5-S1 secondary to underlying spondylolysis with superimposed disc bulge and marked degenerative facet arthropathy causing marked bilateral subarticular recess and foraminal stenosis with encroachment upon the L5 nerve roots. 2. Mild disc herniation and degenerative facet arthropathy T12-L1 through L4-5 causing no significant impression upon the dural sac or nerve roots. 3. Prominent peripelvic bilateral renal cysts. Assessment & Plan Assessment & Plan (1) Lumbar degenerative disc disease: Code(s): M51.369 - Other intervertebral disc degeneration, lumbar region without mention of lumbar back pain or lower extremity pain Category: Medical (2) Spondylolisthesis, lumbar region: Code(s): M43.16 - Spondylolisthesis, lumbar region Category: Medical (3) Lumbosacral spondylosis: Code(s): M47.817 - Spondylosis without myelopathy or radiculopathy, lumbosacral region Category: Medical (4) Chronic low back pain with right-sided sciatica: Code(s): M54.41 - Lumbago with sciatica, right side; G89.29 - Other chronic pain Category: Medical (5) Bilateral knee pain: Code(s): M25.561 - Pain in right knee; M25.562 - Pain in left knee Category: Medical Plan The plan includes obtaining a lumbar spine MRI to assess the current status of the patient's lumbar spine, particularly focusing on the grade 1 anterolisthesis and any disc herniation that may be contributing to her symptoms. For pain management, options discussed include diagnostic lumbar medial branch block injections to determine the source of pain, with potential for radiofrequency ablation if the injections provide temporary relief. Additionally, the possibility of Sprint PNS trial was mentioned. Informational pamphlets were provided to patient. The patient was advised to consider using a cane to aid mobility and prevent falls due to the slippage in her lower spine and right knee pain due to arthritis. All questions and concerns have been answered and patient agreed with the treatment plan. Follow up for MRI results and sooner as needed. Patient was informed and verbally consented to the use of an ambient scribe for clinic note documentation during this visit. Orders: Orders MR lumbar spine wo con Today G89.29 - Other chronic pain, M43.16 - Spondylolisthesis, lumbar region, M47.817 - Spondylosis without myelopathy or radiculopathy, lumbosacral region, M51.369 - Other intervertebral disc degeneration, lumbar region without mention of lumbar back pain or lower extremity pain, M54.41 - Lumbago with sciatica, right side XR knee RT 3V Today M25.561 - Pain in right knee, M25.562 - Pain in left knee XR knee LT 3V Today M25.561 - Pain in right knee, M25.562 - Pain in left knee Coding Level of Care Code New Pt Level 4 (98920) Diagnoses Lumbar degenerative disc disease M51.369 Spondylolisthesis, lumbar region M43.16 Lumbosacral spondylosis M47.817 Chronic low back pain with right-sided sciatica M54.41; G89.29 Bilateral knee pain M25.561; M25.562
[2025-04-13 13:59] VITALS: BP 130/83; PULSE 82; O2SAT 99; BMI 28.4
--- OUTSIDE RECORDS SUMMARY | 2025-04-13 16:51 | XMS_ITS | Encounter Summary ---
Author Organization [employer] Address [address] [place] [address] 7 [place] [address] Care Team Providers Care Grain Merchandiser Name Role Phone Name, Apolinar HAINES Primary Care Provider [phone] Reason for Visit * Reason Comments Med Refill Encounter Details Date Type Department Care Team (Late st Contact Info) Description 11/16/2022 Refill [facility] MEDICINE [address] [place] [address] [phone] Name, MD Apolinar [address] [place] [address] [phone] Social History Tobacco Use Types Packs/Day Years [...] Department Care Team (Late Contact Info) Description 05/05/2025 2:15 PM EST Office Visit [facility] MEDICINE [address] [place] [address] [phone] Name, MD Apolinar [address] [place] [address] [phone] documented as of this encounter Visit Diagnoses Not on filedocumented in this encounter Additional Health Concerns Assessment Noted Time PHQ-9 Depression Total Score: 5 10/11/19 23 4:18 PM EDT documented as of this encounter Care Teams Grain Merchandiser Relationship Specialty Start Date End Date Name, MD Apolinar [address] [place] [address] PCP - General Family Medicine 07/01/18 documented as of this encounter
--- OUTSIDE RECORDS SUMMARY | 2025-04-13 16:51 | XMS_ITS | Encounter Summary ---
Author Organization [employer] Address [address] [place] [address] 7 [place] [address] Care Team Providers Care Electronic Device Repairer Name Role Phone Name, Apolinar HAINES Primary Care Provider [phone] Reason for Visit * Reason Onset Date Comments triage 08/02/2022 Encounter Details Date Type Department Care Team (Late st Contact Info) Description 08/02/2022 Telephone [facility] MEDICINE [address] [place] [address] [phone] NameApolinar MD [address] [place] [address] [phone] triage Social History Tobacco Use Types Packs/Day [...] Care Team (Late st Contact Info) Description 05/05/2025 2:15 PM EST Office Visit [address] [phone] Name, MD Apolinar [address] [place] [address] [phone] documented as of this encounter Visit Diagnoses Not on filedocumented in this encounter Care Teams Electronic Device Repairer Relationship Specialty Start Date End Date Name, MD Apolinar [address] [place] [address] PCP - General Family Medicine 07/01/18 documented as of this encounter
--- OUTSIDE RECORDS SUMMARY | 2025-04-13 16:51 | XMS_ITS | Encounter Summary ---
Author Organization [employer] Address [address] [facility] 7t [place] [address] Care Team Providers Care Diesel Lube Tech Name Role Phone Name, Apolinar HAINES Primary Care Provider [phone] Encounter Details Date Type Department Care Team (Late st Contact Info) Description 07/04/2022 Orders Only [facility] [address] [place] [address] Debbi Alas LPN Social History Tobacco Use [...] Description 05/05/2025 2:15 PM EST Office Visit [facility] MEDICINE [address] [place], [place] [phone] Name, MD Apolinar [address] [place] [address] documented as of this encounter Procedures Procedure Name Priority Date/Time Associated Diagnosis Comments SURESWAB(R) ADVANCED VAGINITIS, TMA Routine 10/25/2022 11:32 AM EDT documented in this encounter Results * SureSwab?? Advanced Vaginitis, TMA (10/25/2022 11:32 AM EDT) Trichomonas DNA Probe Negative Negative [facility] Gardnerella DNA Probe Negative Negative [facility] Ashley DNA Probe Negative Negative [facility] 10/25/2022 11:3 2 AM EDT 10/25/2022 3:51 PM EDT [facility] Exter nal Provider LAB BODY FLUIDS AND STOOLS ORDERABLES Final Result Performing Organization Address City/State/RUST Co de Phone Number [facility] [address] [place] [address] [phone] documented in this encounter Visit Diagnoses Not on filedocumented in this encounter Care Teams Diesel Lube Tech Relationship Specialty Start Date End Date Name, MD Apolinar [address] [place] [phone] PCP - General Family Medicine 07/01/18 documented as of this encounter
--- OUTSIDE RECORDS SUMMARY | 2025-04-13 16:51 | XMS_ITS | Encounter Summary ---
Author Organization [employer] Address [address] [facility] 7t [place] [address] Care Team Providers Care Primary Mill Roller Name Role Phone Name, Apolinar HAINES Primary Care Provider [phone] Reason for Visit * Reason Comments Med Refill Encounter Details Date Type Department Care Team ([facility] st Contact Info) Description 06/25/2023 Refill [facility] MEDICINE [address] [place] [address] Name, MD Apolinar [address] [place], [place] [phone] Asthma, unspecified asthma severity, unspecified whether complicated, [...] Description 05/05/2025 2:15 PM EST Office Visit [facility] MEDICINE [address] [place] [phone] Name, MD Apolinar [address] [place] [phone] documented as of this encounter Visit Diagnoses Diagnosis Asthma, unspecified asthma severity, unspecified whether complicated, unspecified whether persistent documented in this encounter Additional Health Concerns Assessment Noted Time PHQ-9 Depression Total Score: 5 10/11/19 23 4:18 PM EDT documented as of this encounter Care Teams Primary Mill Roller Relationship Specialty Start Date End Date Name, MD Apolinar [address] [place] [phone] PCP - General Family Medicine 07/01/18 documented as of this encounter
--- OUTSIDE RECORDS SUMMARY | 2025-04-13 16:51 | XMS_ITS | Encounter Summary ---
Author Organization [employer] Address [address] [place] [address] 7 [place] [address] Care Team Providers Care Wash Mill Operator Name Role Phone Name, Apolinar HAINES Primary Care Provider [phone] Reason for Visit * Reason Comments Med Refill Encounter Details Date Type Department Care Team (Late st Contact Info) Description 06/05/2022 Refill [facility] MEDICINE [address] [place] [phone] Apolinar Koenig MD [address] [place] [phone] Social History Tobacco Use Types Packs/Day Years [...] Description 05/05/2025 2:15 PM EST Office Visit [facility] MEDICINE [address] [place] [phone] Apolinar Koenig MD [address] [place] [phone] documented as of this encounter Visit Diagnoses Not on filedocumented in this encounter Care Teams Wash Mill Operator Relationship Specialty Start Date End Date Apolinar Koenig MD [address] [place] [phone] PCP - General Family Medicine 07/01/18 documented as of this encounter
--- OUTSIDE RECORDS SUMMARY | 2025-04-13 16:51 | XMS_ITS | Encounter Summary ---
Author Organization [employer] Address [address] [facility] 7t [place] [address] Care Team Providers Care Staff Development Coordinator Name Role Phone Name, Apolinar HAINES Primary Care Provider [phone] Reason for Visit * Reason Onset Date Comments Appointment Request 07/27/2024 Encounter Details Date Type Department Care Team ([facility] st Contact Info) Description 07/27/2024 Telephone [facility] MEDICINE [address] [place] [address] Name, MD Apolinar [address] [place], [place] [phone] Appointment Request Social History Tobacco Use Types [...] not having any Concerns. Contact pt at [phone] documented in this encounter Plan of Treatment Upcoming Encounters Date Type Department Care Team (Late st Contact Info) Description 05/05/2025 2:15 PM EST Office Visit [facility] MEDICINE [address] [place] [phone] Apolinar Koenig MD [address] [place] [phone] documented as of this encounter Visit Diagnoses Not on filedocumented in this encounter Additional Health Concerns Assessment Noted Time PHQ-9 Depression Total Score: 3 04/17/20 24 11:34 AM EDT documented as of this encounter Care Teams Staff Development Coordinator Relationship Specialty Start Date End Date NameApolinar MD [address] [place] [phone] PCP - General Family Medicine 07/01/18 documented as of this encounter
--- OUTSIDE RECORDS SUMMARY | 2025-04-13 16:51 | XMS_ITS | Encounter Summary ---
Author Organization [employer] [facility] Address [address] [place] [address] 7 [place] [address] Care Team Providers Care Executive Community Planning Name Role Phone Name, Apolinar HAINES Primary Care Provider [phone] Reason for Visit * Reason Comments Med Refill Encounter Details Date Type Department Care Team (Late st Contact Info) Description 06/11/2022 Refill [facility] MEDICINE [address] [place] [phone] Apolinar Koenig MD [address] [place] [phone] Social History Tobacco Use Types Packs/Day Years [...] Description 05/05/2025 2:15 PM EST Office Visit [facility] MEDICINE [address] [place] [phone] Apolinar Koenig MD [address] [place] [phone] documented as of this encounter Visit Diagnoses Not on filedocumented in this encounter Care Teams Executive Community Planning Relationship Specialty Start Date End Date Apolinar Koenig MD [address] [place] [phone] PCP - General Family Medicine 07/01/18 documented as of this encounter
--- OUTSIDE RECORDS SUMMARY | 2025-04-13 16:51 | XMS_ITS | Encounter Summary ---
Author Organization [employer] Address [address] [facility] 7t [place] [address] Care Team Providers Care Foreign Legal Consultant Name Role Phone Name, Apolinar HAINES Primary Care Provider [phone] Reason for Visit * Reason Comments Med Refill Encounter Details Date Type Department Care Team ([facility] st Contact Info) Description 04/09/2025 Refill [facility] MEDICINE [address] [place], [place] [phone] Name, MD Apolinar [address] [place], [place] [phone] Social History Tobacco Use Types Packs/Day Years [...] Description 05/05/2025 2:15 PM EST Office Visit [facility] MEDICINE [address] [place] [phone] Name, MD Apolinar [address] [place] [phone] documented as of this encounter Visit Diagnoses Not on filedocumented in this encounter Additional Health Concerns Assessment Noted Time PHQ-9 Depression Total Score: 3 04/17/20 24 11:34 AM EDT documented as of this encounter Care Teams Foreign Legal Consultant Relationship Specialty Start Date End Date NameApolinar MD [address] [place] [phone] PCP - General Family Medicine 07/01/18 documented as of this encounter
--- OUTSIDE RECORDS SUMMARY | 2025-04-13 16:51 | XMS_ITS | Encounter Summary ---
Author Organization [employer] Address [address] [place] [address] 7t [place] [address] Care Team Providers Care Fondant Puff Maker Name Role Phone Name, Apolinar HAINES Primary Care Provider [phone] Encounter Details Date Type Department Care Team (Late st Contact Info) Description 11/16/2022 Abstract [facility] MEDICINE [address] [place] [address] [phone] Name, MD Apolinar [address] [place] [address] [phone] Social History Tobacco Use Types Packs/Day Years [...] Description 05/05/2025 2:15 PM EST Office Visit [facility] MEDICINE [address] [place] [address] [phone] NameApolinar MD [address] [place] [address] [phone] documented as of this encounter Procedures Procedure [...] documented as of this encounter Care Teams Fondant Puff Maker Relationship Specialty Start Date End Date Name, MD Apolinar [address] [place] [address] PCP - General Family Medicine 07/01/18 documented as of this encounter
--- OUTSIDE RECORDS SUMMARY | 2025-04-13 16:51 | XMS_ITS | Encounter Summary ---
Author Organization [employer] Address [address] [facility] [address] [facility] [address] 7t [place] [address] Care Team Providers Care Crop Nutrition Scientist Name Role Phone Name, Apolinar HAINES Primary Care Provider [phone] Encounter Details Date Type Department Care Team (Late st Contact Info) Description 04/13/2025 Orders Only [facility] External Provider, [facility] Social History Tobacco Use Types Packs/Day Years [...] Description 05/05/2025 2:15 PM EST Office Visit [facility] MEDICINE [address] [place] [address] Name, MD Apolinar [address] [place] [address] documented as of this encounter Procedures Procedure Name Priority Date/Time Associated Diagnosis Comments XR KNEE 3 VIEWS RIGHT Routine 04/13/2025 3:00 PM EDT XR KNEE 3 VIEWS LEFT Routine 04/13/2025 3:00 PM EDT documented in this encounter Results * XR Knee 3 Views Right (04/13/2025 3:00 PM EDT) Anatomical Region Laterality Modality Lower Extremities, Knee Right [facility] 04/13/2025 3:00 PM EDT Narrative 04/13/2025 3:35 PM EDT [address] [address] XRay Report Signed Patient: Kari Alvarado MR#: [id number] : 1960 Acct:[id number] Age/Sex: 64 / F ADM Date: 04/13/25 Loc: SHU Attending Dr: Dasia GOODEN Ordering Physician: Dasia Ray Date of Service: 04/13/25 Procedure(s): XR knee RT 3V Accession Number(s): [id number] cc: Dasia Ray; Name,Apolinar HAINES Reason for Exam: M25.561 - Pain in right knee EXAMINATION: XR KNEE, RIGHT CLINICAL INFORMATION: M25.561 - Pain in right knee COMPARISON: None available. TECHNIQUE: Three views of the right knee. FINDINGS: There is mild narrowing of the medial joint space. Small marginal osteophytes are present involving patellofemoral joint and medial compartment and intercondylar spines. No joint effusion is present. XR/XR knee RT 3V IMPRESSION: Mild osteoarthritis. Electronically signed by: Matthew Rivero MD 04/13/2025 03:32 PM EDT RP Dictated By: Matthew Rivero MD Signed By: <Electronically signed by Matthew Rivero MD in OV> 04/13/25 1532 DD/ 1500 TD/TT: 04/13/25 1520 Optical Glass Etcher: Procedure Note Donotuseinterpreter, Image - 04/13/2025 [place] [address] XRay Report Signed Patient: Trevor Alvarado#: [id number] : 9Acct:[id number] Age/Sex: 64 / FADM Date: 04/13/25 Loc: SHU Attending Dr: Dasia GOODEN Ordering Physician: Dasia Ray Date of Service: 04/13/25 Procedure(s): XR knee RT 3V Accession Number(s): [id number] cc: Dasia Ray; Name,Apolinar HAINES Reason for Exam: M25.561 - Pain in right knee EXAMINATION: XR KNEE, RIGHT CLINICAL INFORMATION: M25.561 - Pain in right knee COMPARISON: None available. TECHNIQUE: Three views of the right knee. FINDINGS: There is mild narrowing of the medial joint space. Small marginal osteophytes are present involving patellofemoral joint and medial compartment and intercondylar spines. No joint effusion is present. XR/XR knee RT 3V IMPRESSION: Mild osteoarthritis. Electronically signed by: Matthew Rivero MD 04/13/2025 03:32 PM EDT RP Dictated By: Matthew Rivero MD Signed By: <Electronically signed by Matthew Rivero MD in OV> 04/13/25 1532 DD/ 1500 TD/TT: 04/13/25 1520 Optical Glass Etcher: us [facility] External Provider IMG XR PROCEDURES Final Result * XR Knee 3 Views Left (04/13/2025 3:00 PM EDT) Anatomical Region Laterality Modality Lower Extremities, Knee Left Radiogra phic Imaging 04/13/2025 3:00 PM EDT Narrative 04/13/2025 3:34 PM EDT [address] [address] XRay Report Signed Patient: Kari Alvarado MR#: [id number] : 1960 Acct:[id number] Age/Sex: 64 / F ADM Date: 04/13/25 Loc: SHU Attending Dr: Dasia GOODEN Ordering Physician: Dasia Ray Date of Service: 04/13/25 Procedure(s): XR knee LT 3V Accession Number(s): [id number] cc: Dasia Ray; Name,Apolinar HAINES Reason for Exam: M25.561 - Pain in right knee EXAMINATION: XR KNEE, LEFT CLINICAL INFORMATION: M25.561 - Pain in right knee COMPARISON: None available. TECHNIQUE: Three views of the left knee. FINDINGS: There is mild narrowing of the medial joint space. There are small marginal osteophytes. Intercondylar tubercles are peaked. There is no joint effusion. XR/XR knee LT 3V IMPRESSION: Mild osteoarthritis. Electronically signed by: Matthew Rivero MD 04/13/2025 03:31 PM EDT RP Dictated By: Matthew Rivero MD Signed By: <Electronically signed by Matthew Rivero MD in OV> 04/13/25 1531 DD/ 1500 TD/TT: 04/13/25 1520 Optical Glass Etcher: Procedure Note Donotuseinterpreter, Image - 04/13/2025 [facility] [address] [place] [address] XRay Report Signed Patient: Trevor Alvarado#: [id number] : 9Acct:[id number] Age/Sex: 64 / FADM Date: 04/13/25 Loc: SHU Attending Dr: Dasia GOODEN Ordering Physician: Dasia Ray Date of Service: 04/13/25 Procedure(s): XR knee LT 3V Accession Number(s): [id number] cc: Dasia Ray; Name,Apolinar HAINES Reason for Exam: M25.561 - Pain in right knee EXAMINATION: XR KNEE, LEFT CLINICAL INFORMATION: M25.561 - Pain in right knee COMPARISON: None available. TECHNIQUE: Three views of the left knee. FINDINGS: There is mild narrowing of the medial joint space. There are small marginal osteophytes. Intercondylar tubercles are peaked. There is no joint effusion. XR/XR knee LT 3V IMPRESSION: Mild osteoarthritis. Electronically signed by: Matthew Rivero MD 04/13/2025 03:31 PM EDT Dictated By: Matthew Rivero MD Signed By: <Electronically signed by Matthew Rivero MD in OV> 04/13/25 1531 DD/ 1500 TD/TT: 04/13/25 1520 Optical Glass Etcher: [facility] External Provider IMG XR PROCEDURES Final Result documented in this encounter Visit Diagnoses Not on filedocumented in this encounter Additional Health Concerns Assessment Noted Time PHQ-9 Depression Total Score: 3 04/17/20 24 11:34 AM EDT documented as of this encounter Care Teams Crop Nutrition Scientist Relationship Specialty Start Date End Date Name, MD Apolinar [address] [place] [address] PCP - General Family Medicine 07/01/18 documented as of this encounter
--- OUTSIDE RECORDS SUMMARY | 2025-04-13 16:51 | XMS_ITS | Encounter Summary ---
Author Organization [employer] Address [address] [facility] 7t [place] [address] Care Team Providers Care Gun Number Name Role Phone Name, Apolinar HAINES Primary Care Provider [phone] Reason for Visit * Reason Onset Date Comments FYI 01/11/2023 Encounter Details Date Type Department Care Team ([facility] st Contact Info) Description 01/11/2023 Telephone [facility] MEDICINE [address] [place], [place] [phone] Name, MD Apolinar [address] [place] [address] Social History Tobacco Use Types Packs/Day Years [...] Description 05/05/2025 2:15 PM EST Office Visit [facility] MEDICINE [address] [place] [address] Name, MD Apolinar [address] [place] [address] documented as of this encounter Visit Diagnoses Not on filedocumented in this encounter Additional Health Concerns Assessment Noted Time PHQ-9 Depression Total Score: 5 10/11/19 23 4:18 PM EDT documented as of this encounter Care Teams Gun Number Relationship Specialty Start Date End Date Name, MD Apolinar [address] [place] [address] PCP - General Family Medicine 07/01/18 documented as of this encounter
--- OUTSIDE RECORDS SUMMARY | 2025-04-13 16:51 | XMS_ITS | Encounter Summary ---
Author Organization [employer] Address [address] [facility] 7t [place] [address] Care Team Providers Care Electrolytic De Scaler Name Role Phone Name, Apolinar HAINES Primary Care Provider [phone] Encounter Details Date Type Department Care Team ([facility] Contact Info) Description 11/16/2022 Orders Only [facility] CHC MED & PEDS [address] [place], [place] [phone] Debbi Alas LPN Social History Tobacco Use [...] Description 05/05/2025 2:15 PM EST Office Visit [facility] MEDICINE [address] [place], [place] [phone] Name, MD Apolinar [address] [place] [address] documented as of this encounter Visit Diagnoses Not on filedocumented in this encounter Additional Health Concerns Assessment Noted Time PHQ-9 Depression Total Score: 5 10/11/19 23 4:18 PM EDT documented as of this encounter Care Teams Electrolytic De Scaler Relationship Specialty Start Date End Date Name, MD Apolinar [address] [place] [address] PCP - General Family Medicine 07/01/18 documented as of this encounter
--- OUTSIDE RECORDS SUMMARY | 2025-04-13 16:52 | XMS_ITS | Clinical Summary ---
Author Organization [employer] Address [address] [facility] 7t [place] [address] Care Team Providers Care Horse Breaker Name Role Phone Name, Apolinar HAINES Primary Care Provider [phone] Allergies Active Allergy Reactions Criticality Noted Date [...] hours. 9 tablet 2 09/20/19 24 Active lidocaine (Lidoderm) 5 % patchIndicatio ns:Chronic low back pain without sciatica, unspecified back pain laterality Apply 1 patch topically Once per day. Remove & discard patch within 12 hours or as directed by MD. 30 patch 2 03/19/20 24 Active sertraline (Zoloft) 100 MG tablet TAKE 1 TABLET BY MOUTH EVERY DAY 90 tablet 3 05/19/20 24 Active Fluticasone-Sa lmeterol 500-50 MCG/ACT aerosol powderIndicati ons:Asthma, unspecified asthma severity, unspecified whether complicated, unspecified whether persistent INHALE 1 DOSE BY MOUTH TWICE DAILY (IN THE MORNING AND EVENING, APPROXIMATELY 12 HOURS APART) 60 each 07/08/19 25 Active loratadine (EQ All Day Allergy Relief) 10 MG tablet TAKE 1 TABLET BY MOUTH EVERY DAY 90 tablet 1 12/01/19 25 Active cholecalcifero l (Vitamin D-3) 25 MCG (1000 UT) tablet TAKE 1 TABLET BY MOUTH EVERY DAY 90 tablet 1 12/01/19 25 Active busPIRone (Buspar) 10 MG tablet Take 1/2 (one-half) tablet by mouth twice daily 90 tablet 02/10/20 25 Active metoprolol succinate XL (Toprol-XL) 25 MG 24 hr tablet TAKE 1 TABLET BY MOUTH EVERY DAY 90 tablet 1 03/15/20 25 Active losartan-hydro CHLOROthiazide (Hyzaar) 100-25 MG tablet TAKE 1 TABLET BY MOUTH EVERY DAY 30 tablet 3 03/25/20 25 Active albuterol 108 (90 Base) MCG/ACT inhalerIndicat ions:Asthma, unspecified asthma severity, unspecified whether complicated, unspecified whether persistent INHALE 2 PUFFS BY MOUTH EVERY 4 TO 6 HOURS NEEDED 18 g 03/30/20 25 Active ezetimibe (Zetia) 10 MG tablet TAKE 1 TABLET BY MOUTH EVERY DAY 90 tablet 04/05/20 25 Active montelukast (Singulair) 10 MG tablet TAKE 1 TABLET BY MOUTH ONCE DAILY IN THE EVENING 90 tablet 04/09/20 25 Active losartan-hydro CHLOROthiazide (Hyzaar) 100-25 MG tablet Take 1 tablet by mouth Once per day. 30 tablet 11 03/13/20 24 2024 Discontinued ezetimibe (Zetia) 10 MG tablet Take 1 tablet (10 mg) by mouth Once per day. 30 tablet 11 03/31/20 24 2024 Discontinued montelukast (Singulair) 10 MG tablet TAKE 1 TABLET BY MOUTH ONCE DAILY IN THE EVENING 90 tablet 06/23/20 24 2024 Discontinued metoprolol succinate XL (Toprol-XL) 25 MG 24 hr tablet TAKE 1 TABLET BY MOUTH EVERY DAY 90 tablet 1 09/19/19 25 2024 Discontinued albuterol 108 (90 Base) MCG/ACT inhalerIndicat ions:Asthma, unspecified asthma severity, unspecified whether complicated, unspecified whether persistent INHALE 2 PUFFS BY MOUTH EVERY 4 TO 6 HOURS NEEDED 18 g 02/13/20 25 2024 Discontinued Active Problems Problem Noted [...] Encounters Date Type Department Care Team Description 04/13/2025 Orders Only [facility] External Provider, [facility] 04/09/2025 Refill [facility] MEDICINE [address] [place] [address] Name, MD Apolinar 04/04/2025 Refill [facility] MEDICINE [address] [place] [address] Apolinar Koengi MD 03/29/2025 Refill [facility] MEDICINE [address] [place] [address] Apolinar Koenig MD Asthma, unspecified asthma severity, unspecified whether complicated, unspecified whether persistent 03/25/2025 Refill [facility] MEDICINE [address] [place] [address] Apolinar Koenig MD 03/15/2025 Refill [facility] MEDICINE [address] [place] [address] Apolinar Koenig MD 02/12/2025 Refill [facility] MEDICINE [address] [place] [address] Alba Marcum NP Asthma, unspecified asthma severity, unspecified whether complicated, unspecified whether persistent 02/10/2025 3:45 PM EDT Office Visit [facility] MEDICINE [address] [place] [address] NameApolinar MD Chronic obstructive pulmonary disease, unspecified COPD type (CMS/HCC) (Primary Dx); Hyperglycemia; 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; DJD (degenerative joint disease), lumbosacral 02/10/2025 Travel 02/08/2025 Refill [facility] MEDICINE [address] [place] [address] NameApolinar MD from Last 3 Months Immunizations Immunization Administration Dates Next Due INFLUENZA VACCINE QUADRIVALE [...] Sign Reading Time Taken Comments Blood Pressure 120/90 02/10/2025 4:01 PM EDT Pulse 75 02/10/2025 4:01 PM EDT Temperature 37.2 C (98.9 F) 02/10/2025 4:01 PM EDT Respiratory Rate 20 02/10/2025 4:01 PM EDT Oxygen Saturation 98% 02/10/2025 4:01 PM EDT Inhaled Oxygen Concentration - - Weight 79.5 kg (175 lb 3.2 oz) 02/10/2025 4:01 P M EDT Height 165.1 cm (5' 5 ) 02/10/2025 4:01 PM EDT Body Mass Index 29.15 02/10/2025 4:01 PM EDT Plan of Treatment Upcoming Encounters Date Type Department Care Team (Late st Contact Info) Description 05/05/2025 2:15 PM EST Office Visit [facility] MEDICINE [address] [place] [phone] Name, MD Apolinar [address] [place] [address] Health Maintenance Due Date Last Done Comments CT Colonography 1960 FIT DNA/Cologuard 1960 FIT 1960 FOBT 1960 Sigmoidoscopy 1960 Hepatitis C Screening 1976 RSV Patients and Patients Aged 60 years or older (1 - Risk 60-74 years 1-dose series) 2018 COVID-19 Vaccine ( season) 2025 05/19/2024, 10/15/2023, 10/17/2022, Additional history exists Influenza Vaccine (#1) 2025 , 05/07/2023, 05/22/2022, Additional history exists Depression Screening 04/17/2025 04/17/2024, 04/17/20 24 Mammogram 05/13/2025 05/13/2024, 11/0 03/2023, 05/08/2023, Additional history exists Alcohol/Substance Use Screening 05/19/2025 05/19/2024 HPV/Cotest 06/15/2025 05/07/2018 Pap Smear 06/15/2025 06/15/2020 SDOH Screening 08/24/2025 08/24/2024 Tobacco Screening 02/10/2026 02/10/2025 Colonoscopy 08/14/2027 08/14/2022, 08/14/2019 Colorectal Cancer Screening 08/14/2027 Lipid Panel 11/04/2029 11/04/2024, 03/02, 10/17/2022, Additional history exists DTaP/Tdap/Td Vaccines (3 - Td or Tdap) 05/07/2033 05/07/2023, 05/14/2011 Zoster Vaccines Completed 07/13/2020, 03/29/2020 Pneumococcal Vaccine: 50+ Years Completed 03/13/2024, 05/13/2017 HIB Vaccines Aged Out [...] VIEWS LEFT Routine 04/13/2025 3:00 PM EDT POCT GLYCATED HEMOGLOBIN, TOTAL Routine 02/10/2025 4:26 PM EDT Hyperglycemia LIPID PANEL, STANDARD Routine 11/04/2024 1:59 PM EDT Hypertension, unspecified type High cholesterol BI MAMMOGRAM SCREENING TOMOSYNTHESIS BILATERAL Routine 05/13/2024 2:02 PM EST HM COLONOSCOPY Routine 08/14/2022 3:12 PM EST HM PAP/HPV Routine 06/15/2020 12:00 AM EST ZZZ HISTORICAL HPV MRNA E6/E7 Routine 05/07/2018 10:00 AM EST from Last 3 Months or Most Recently Relevant to Health Maintenance Results * XR Knee 3 Views Right (04/13/2025 3:00 PM EDT) Anatomical Region Laterality Modality Lower Extremities, Knee Right [facility] 04/13/2025 3:00 PM EDT Narrative 04/13/2025 3:35 PM EDT [address] [address] XRay Report Signed Patient: Kari Alvarado MR#: [id number] : 1960 Acct:[id number] Age/Sex: 64 / F ADM Date: 04/13/25 Loc: SHU Attending Dr: Dasia GOODEN Ordering Physician: Dasia Ray Date of Service: 04/13/25 Procedure(s): XR knee RT 3V Accession Number(s): [id number] cc: Dasia Ray; Name,Apolinar HAINES Reason for [...] 04/13/25 1532 DD/ 1500 TD/TT: 04/13/25 1520 Cost Accounting Manager: Procedure Note Donotuseinterpreter, Image - 04/13/2025 [place] [address] XRay Report Signed Patient: Trevor Alvarado#: [id number] : 9Acct:[id number] Age/Sex: 64 / FADM Date: 04/13/25 Loc: SHU Attending Dr: Dasia GOODEN Ordering Physician: Dasia Ray Date of Service: 04/13/25 Procedure(s): XR knee RT 3V Accession Number(s): [id number] cc: Dasia Ray; Name,Apolinar HAINES Reason for [...] 04/13/25 1532 DD/ 1500 TD/TT: 04/13/25 1520 Cost Accounting Manager: [facility] External Provider IMG XR PROCEDURES Final Result * XR Knee 3 Views Left (04/13/2025 3:00 PM EDT) Anatomical Region Laterality Modality Lower Extremities, Knee Left Radiogra phic Imaging 04/13/2025 3:00 PM EDT Narrative 04/13/2025 3:34 PM EDT [address] [address] XRay Report Signed Patient: Kari Alvarado MR#: [id number] : 1960 Acct:[id number] Age/Sex: 64 / F ADM Date: 04/13/25 Loc: SHU Attending Dr: Dasia GOODEN Ordering Physician: Dasia Ray Date of Service: 04/13/25 Procedure(s): XR knee LT 3V Accession Number(s): [id number] cc: Dasia Ray; Name,Apolinar HAINES Reason for [...] 04/13/25 1531 DD/ 1500 TD/TT: 04/13/25 1520 Cost Accounting Manager: Procedure Note Donotuseinterpreter, Image - 04/13/[address] [place] [address] XRay Report Signed Patient: Trevor Alvarado#: [id number] : 9Acct:[id number] Age/Sex: 64 / FADM Date: 04/13/25 Loc: [facility] Attending Dr: Dasia GOODEN Ordering Physician: Dasia Ray Date of Service: 04/13/25 Procedure(s): XR knee LT 3V Accession Number(s): [id number] cc: Dasia Ray; Name,Apolinar HAINES Reason for [...] 04/13/25 1531 DD/ 1500 TD/TT: 04/13/25 1520 Cost Accounting Manager: [facility] External Provider IMG XR PROCEDURES Final Result * POCT HGB A1C (02/10/2025 4:26 PM EDT) Pathologist [facility] Hemoglobin A1C 5.6 4.0 - 5.7 % QC Media Lot # [id number] Lot# Expiration Date 72 Blood 02/10/2025 4:26 PM EDT Apolinar Koenig MD POINT OF CARE TEST ENTER/EDIT OR DERABLES Final Result * (ABNORMAL) Lipid Panel, Standard (11/04/2024 1:59 PM EDT) Pathologist [facility] Triglycerides 234(H) <150 mg/dL [facility] Comment:Desirable Triglyceri de: less than 150 mg/dLBorderline High Triglyceride 150-199 mg/dLHigh Triglyceride: 200-499 mg/dLVery High Triglyceride: greater than or equal to 5OO mg/dL Cholesterol 230(H) <200 mg/dL [facility] Comment:Desirable Cholestero l: less than 200 mg/dLBorderline High Cholesterol: 200-239 mg/dLHigh Cholesterol: greater than 239 mg/dL LDL Cholesterol Calculated 142(H) <100 mg/dL [facility] Comment:Desirable LDL: less than 100 mg/dLNear Optimal/Above Optimal LDL: 110- 129 mg/dLBorderline High LDL: 130-159 mg/dLHigh LDL: 160-189 mg/dLVery High LDL: greater than or equal to 190 mg/dL HDL Cholesterol 42 >40 mg/dL [facility] Comment:Desirable HDL: great er than 40 mg/dL Note: This HDL assay may give artificially low results in patients with liver disease. Blood Venous blood specimen / Unknown 11/04/2024 1:59 PM EDT 11/04/2024 4:11 PM EDT Apolinar Koenig MD LAB BLOOD ORDERABLES Final Resul t [facility] [address] [place] [phone] * BI Mammogram Screening Tomosynthesis Bilateral (05/13/2024 2:02 PM EST) Anatomical Region Laterality Modality Breast Bilateral Mammography 05/13/2024 2:02 PM EST Narrative 05/22/2024 8:48 AM EST [facility] [address] [place] [address] Mammography Report Signed Patient: Kari Alvarado MR#: [id number] : 1960 Acct:[id number] Age/Sex: 63 / F ADM Date: 05/13/24 Loc: [facility] Attending Dr: Apolinar Koenig MD Ordering Physician: Apolinar Koenig MD Results: 1Negative Date of Service: 05/13/24 Follow Up: 1 Year From Orig inal Mammogram Procedure(s): MM tomosynthesis screening BI Accession Number(s): [id number] cc: Apolinar Koenig MD EXAMINATION: MM SCREENING [...] 05/22/24 0845 DD/ 1402 TD/TT: 05/13/24 1430 Cost Accounting Manager: Procedure Note Donotuseinterpreter, Image - 05/22/2024 [facility] [address] [place], [place] [address] Mammography Report Signed Patient: Trevor Alvarado#: [id number] : 9Acct:[id number] Age/Sex: 63 / FADM Date: 05/13/24 Loc: [facility] Attending Dr: Apolinar Koenig MD Ordering Physician: Apolinar Koenig MDResults: 1Negative Date of Service: 05/13/24Follow Up: 1 Year From Orig inal Mammogram Procedure(s): MM tomosynthesis screening BI Accession Number(s): [id number] cc: Apolinar Koenig MD EXAMINATION: MM SCREENING [...] Samantha Payton DO 05/22/2024 08:45 AM EST RP Dictated By: Samantha Payton DO Signed By: <Electronically signed by Samantha Payton DO in OV> 05/22/24 0845 DD/ 1402 TD/TT: 05/13/24 1430 Cost Accounting Manager: Apolinar Koenig MD IM BI PROCEDURES Final Result * Hm Colonoscopy (08/14/2022 3:12 PM EST) Colonoscopy Normal Normal Narrative Prerna Judd - 08/14/2022 3:12 PM EST Recommended 5 year follow up Historical Provider HEALTH MAINTENANCE Final Result * Hm Pap Smear (06/15/2020 12:00 AM EST) Historical Provider HEALTH MAINTENANCE Final Result * HPV mRNA E6/E7 (05/07/2018 10:00 AM EST) HPV mRNA E6/E7 Not Detected NOT DETECTED [facility] Comment: This test was performed using the APTIMA(R) HPV Assay ([employer] This assay detects E6/E7 viral messenger RNA (mRNA) from 14 high-risk HPV types (16,18,31,33,35,39,45,51, 52,56,58,59,66,68). For additional information please refer to: http://education.[employer]/faq/BYP679s2 (This link is being provided for informational/ educational purposes only.) The analytical performance characteristics of this assay have been determined by [employer] [place], [place]. The modifications have not been cleared or approved by the FDA. This assay has been validated pursuant to the CLIA regulations and is used for clinical purposes. Test Performed by [employer] [facility], [address] [place] [address] Layo Moss M.D., Ph.D., Director of Laboratories , [place] [id number] Please note: Effective 03/12/2016, HPV testing will be performed using [employer]'s APTIMA test which targets mRNA. Detecting mRNA instead of DNA, as in older methods, offers significant improvements in specificity. 05/07/2018 10:0 0 AM EST us Rosanna Puente CNM HISTORICAL/NON ORDERABLE LABS Final Result [facility] Formerly [facility] [address] from Last 3 Months or Most Recently Relevant to Health Maintenance Insurance [employer] MEDICARE REPLACEMENT [facility] STANDARD Care Teams Horse Breaker Relationship Specialty Start Date End Date Name, MD Apolinar [address] [place] [id number] PCP - General Family Medicine 07/01/18
== END 2025-04-13 14:31 | disposition home or self-care (01) ==
PROVIDERS: PCP Internal Medicine Geriatric Medicine; Referring Provider Internal Medicine Geriatric Medicine; Visit Provider Nurse Practitioner Family
DX: M51.369 Other intervertebral disc degeneration, lumbar region without mention of lumbar back pain or lower extremity pain (principal); M43.16 Spondylolisthesis, lumbar region; M47.817 Spondylosis without myelopathy or radiculopathy, lumbosacral region; M54.41 Lumbago with sciatica, right side; G89.29 Other chronic pain; M25.561 Pain in right knee; M25.562 Pain in left knee
CPT/HCPCS: 99204

== ENCOUNTER → 2025-04-13 14:56 | Outpatient (BNV) | payer MEDICARE, SELFPAY | PROVIDERS: PCP Internal Medicine Geriatric Medicine; Referring Provider Internal Medicine Geriatric Medicine; Visit Provider Radiology Diagnostic Radiology | DX: M17.0 Bilateral primary osteoarthritis of knee (principal) | CPT/HCPCS: 73562 ==

== ENCOUNTER → 2025-05-19 14:30 | Outpatient (BNV) | payer MEDICARE, SELFPAY | PROVIDERS: PCP Internal Medicine Geriatric Medicine; Visit Provider Radiology Body Imaging | DX: Z12.31 Encounter for screening mammogram for malignant neoplasm of breast (principal) | CPT/HCPCS: 77063; 77067 ==

== ENCOUNTER 2025-05-19 14:45 | Outpatient (REF) | payer MEDICARE, SELFPAY ==
--- OUTSIDE RECORDS SUMMARY | 2025-05-20 03:18 | XMS_ITS | Encounter Summary ---
Author Organization [employer] Address [address] [facility] [address] [place] [address] Care Team Providers Care Panel Monitor Name Role Phone Name, Apolinar HAINES Primary Care Provider [phone] Reason for Visit * Reason Onset Date Comments Appointment Request 07/27/2024 Encounter Details Date Type Department Care Team ([facility] st Contact Info) Description 07/27/[address] [facility] [address] [place], [place] [phone] Name, MD Apolinar [address] [place] [address] Appointment Request Social History Tobacco Use Types [...] not having any Concerns. Contact pt at [phone] documented in this encounter Plan of Treatment Not on file documented as of this encounter Visit Diagnoses Not on filedocumented in this encounter Additional Health Concerns Assessment Noted Time PHQ-9 Depression Total Score: 3 04/17/20 24 11:34 AM EDT documented as of this encounter Care Teams Panel Monitor Relationship Specialty Start Date End Date Name, MD Apolinar [address] [place] [address] PCP - General Family Medicine 07/01/18 documented as of this encounter
--- OUTSIDE RECORDS SUMMARY | 2025-05-20 03:18 | XMS_ITS | Encounter Summary ---
Author Organization [employer] Address [address] [facility] [address] [place] [address] Care Team Providers Care Guest Experience Specialist Name Role Phone Name, Apolinar HAINES Primary Care Provider [phone] Encounter Details Date Type Department Care Team (Late st Contact Info) Description 07/04/2022 Orders Only [facility] [address] [place] [address] Debbi Alas LPN Social History Tobacco Use [...] on file documented as of this encounter Procedures Procedure Name Priority Date/Time Associated Diagnosis Comments SURESWAB(R) ADVANCED VAGINITIS, TMA Routine 10/25/2022 11:32 AM EDT documented in this encounter Results * SureSwab?? Advanced Vaginitis, TMA (10/25/2022 11:32 AM EDT) Trichomonas DNA Probe Negative Negative [facility] Gardnerella DNA Probe Negative Negative [facility] Ashley DNA Probe Negative Negative [facility] 10/25/2022 11:3 2 AM EDT 10/25/2022 3:51 PM EDT [facility] Exter nal Provider LAB BODY FLUIDS AND STOOLS ORDERABLES Final Result [facility] [address] [place] [address] [phone] documented in this encounter Visit Diagnoses Not on filedocumented in this encounter Care Teams Guest Experience Specialist Relationship Specialty Start Date End Date Name, MD Apolinar [address] [place] [address] PCP - General Family Medicine 07/01/18 documented as of this encounter
--- OUTSIDE RECORDS SUMMARY | 2025-05-20 03:18 | XMS_ITS | Encounter Summary ---
Author Organization [employer] Address 75 [facility] 7t [place] [address] Care Team Providers Care Vanstone Machine Operator Name Role Phone Name, Apolinar HAINES Primary Care Provider [phone] Reason for Visit * Reason Comments Med Refill Encounter Details Date Type Department Care Team (Late st Contact Info) Description 06/05/2022 Refill [facility] MEDICINE [address] [place] [phone] Name, MD Apolinar [address] [place] [address] Social History Tobacco Use Types Packs/Day Years [...] on filedocumented in this encounter Care Teams Vanstone Machine Operator Relationship Specialty Start Date End Date Name, MD Apolinar [address] [place] [address] PCP - General Family Medicine 07/01/18 documented as of this encounter
--- OUTSIDE RECORDS SUMMARY | 2025-05-20 03:18 | XMS_ITS | Encounter Summary ---
Author Organization [employer] Address 75 [facility] 7t [place] [address] Care Team Providers Care Spindle Plumber Name Role Phone Name, Apolinar HAINES Primary Care Provider [phone] Encounter Details Date Type Department Care Team (Late st Contact Info) Description 11/16/2022 Abstract [facility] MEDICINE [address] [place], [place] [phone] Name, MD Apolinar [address] [place] [address] Social History Tobacco Use Types Packs/Day Years [...] documented as of this encounter Care Teams Spindle Plumber Relationship Specialty Start Date End Date Name, MD Apolinar [address] [place] [address] PCP - General Family Medicine 07/01/18 documented as of this encounter
--- OUTSIDE RECORDS SUMMARY | 2025-05-20 03:18 | XMS_ITS | Encounter Summary ---
Author Organization [employer] Address 75 [facility] 7t [place] [address] Care Team Providers Care Meat Pickler Name Role Phone Name, Apolinar HAINES Primary Care Provider [phone] Reason for Visit * Reason Onset Date Comments FYI 01/11/2023 Encounter Details Date Type Department Care Team ([facility] st Contact Info) Description 01/11/2023 Telephone [facility] MEDICINE [address] [place], [place] [phone] Name, MD Apolinar [address] [place] [address] Social History Tobacco Use Types Packs/Day Years [...] documented as of this encounter Care Teams Meat Pickler Relationship Specialty Start Date End Date Name, MD Apolinar [address] [place] [address] PCP - General Family Medicine 07/01/18 documented as of this encounter
--- OUTSIDE RECORDS SUMMARY | 2025-05-20 03:18 | XMS_ITS | Encounter Summary ---
Author Organization [employer] Address 75 [facility] 7t [place] [address] Care Team Providers Care Wellness Coordinator Name Role Phone Name, Apolinar HAINES Primary Care Provider [phone] Encounter Details Date Type Department Care Team (Late st Contact Info) Description 11/16/2022 Orders Only [facility] CH[facility] MED & PEDS [address] [place] [address] Debbi Alas LPN Social History Tobacco Use [...] documented as of this encounter Care Teams Wellness Coordinator Relationship Specialty Start Date End Date Name, MD Apolinar [address] [place] [address] PCP - General Family Medicine 07/01/18 documented as of this encounter
--- OUTSIDE RECORDS SUMMARY | 2025-05-20 03:18 | XMS_ITS | Encounter Summary ---
Author Organization [employer] Address 75 [facility] 7t [place] [address] Care Team Providers Care Exotic Dancer Name Role Phone Name, Apolinar HAINES Primary Care Provider [phone] Reason for Visit * Reason Comments Med Refill Encounter Details Date Type Department Care Team ([facility] st Contact Info) Description 06/25/2023 Refill [facility] MEDICINE [address] [place], [place] [phone] Name, MD Apolinar 230 [place] [address] Asthma, unspecified asthma severity, unspecified whether complicated, [...] documented as of this encounter Care Teams Exotic Dancer Relationship Specialty Start Date End Date Name, MD Apolinar [address] [place] [address] PCP - General Family Medicine 07/01/18 documented as of this encounter
--- OUTSIDE RECORDS SUMMARY | 2025-05-20 03:18 | XMS_ITS | Encounter Summary ---
Author Organization [employer] Address [address] [place] [address] 7t [place] [address] Care Team Providers Care Spray Gun Repairer Name Role Phone Name, Apolinar HAINES Primary Care Provider [phone] Reason for Visit * Reason Onset Date Comments triage 08/02/2022 Encounter Details Date Type Department Care Team (Late st Contact Info) Description 08/02/2022 Telephone [facility] MEDICINE 230 [place], [place] [phone] Name, MD Apolinar [address] [place] [address] triage Social History Tobacco Use Types Packs/Day [...] on filedocumented in this encounter Care Teams Spray Gun Repairer Relationship Specialty Start Date End Date Name, MD Apolinar [address] [place], [place] [phone] PCP - General Family Medicine 07/01/18 documented as of this encounter
--- OUTSIDE RECORDS SUMMARY | 2025-05-20 03:18 | XMS_ITS | Encounter Summary ---
Author Organization [employer] Address 75 [facility] 7t [place] [address] Care Team Providers Care Digital Press Operator Name Role Phone Name, Apolinar HAINES Primary Care Provider [phone] Reason for Visit * Reason Comments Med Refill Encounter Details Date Type Department Care Team ([facility] st Contact Info) Description 11/16/2022 Refill [facility] MEDICINE [address] [place] [address] [phone] Name, MD Apolinar [address] [place] [address] Social History Tobacco Use Types Packs/Day Years [...] documented as of this encounter Care Teams Digital Press Operator Relationship Specialty Start Date End Date Name, MD Apolinar [address] [place] [address] PCP - General Family Medicine 07/01/18 documented as of this encounter
--- OUTSIDE RECORDS SUMMARY | 2025-05-20 03:18 | XMS_ITS | Encounter Summary ---
Author Organization [employer] Address 75 [facility] 7t [place] [address] Care Team Providers Care Otolaryngologist Name Role Phone Name, Apolinar HAINES Primary Care Provider [phone] Reason for Visit * Reason Comments Med Refill Encounter Details Date Type Department Care Team (Late st Contact Info) Description 06/11/2022 Refill [facility] MEDICINE [address] [place] [phone] Name, MD Apolinar [address] [place] [address] Social History Tobacco Use Types Packs/Day Years [...] on filedocumented in this encounter Care Teams Otolaryngologist Relationship Specialty Start Date End Date Name, MD Apolinar [address] [place] [phone] PCP - General Family Medicine 07/01/18 documented as of this encounter
--- OUTSIDE RECORDS SUMMARY | 2025-05-20 03:19 | XMS_ITS | Clinical Summary ---
Author Organization [employer] Address 75 [facility] 7t [place] [address] Care Team Providers Care Sole Tacker Name Role Phone Name, Apolinar HAINES Primary Care Provider Allergies Active Allergy Reactions Criticality Noted Date Comments Lisinopril 05/14/2011 Dry cough Pravastatin 01/11/2023 Myalgia and cramping Medications * This document contains information received from the source organization and may not represent a complete record from that organization. Incruse Ellipta 62.5 MCG/ACT aerosol powder INHALE 1 PUFF INTO THE LUNGS BY MOUTH ONCE DAILY 023 Active Diclofenac Sodium 1 % gelIndications :Chronic pain of left thumb To apply to the affected area 4 times a day 100 g 024 Active ipratropium (Atrovent) 0.03 % nasal spray Administer 2 sprays into each nostril every 12 (twelve) hours. 30 mL 12 024 Active SUMAtriptan (Imitrex) 25 MG tablet Take 1 tablet (25 mg) by mouth 1 (one) time if needed for migraine. May repeat dose once in 2 hours if no relief. Do not exceed 2 doses in 24 hours. 9 tablet 2 024 Active lidocaine (Lidoderm) 5 % patchIndicatio ns:Chronic low back pain without sciatica, unspecified back pain laterality Apply 1 patch topically Once per day. Remove & discard patch within 12 hours or as directed by MD. 30 patch 2 024 Active sertraline (Zoloft) 100 MG tablet TAKE 1 TABLET BY MOUTH EVERY DAY 90 tablet 3 024 Active Fluticasone-Sa lmeterol 500-50 MCG/ACT aerosol powderIndicati ons:Asthma, unspecified asthma severity, unspecified whether complicated, unspecified whether persistent INHALE 1 DOSE BY MOUTH TWICE DAILY (IN THE MORNING AND EVENING, APPROXIMATELY 12 HOURS APART) 60 each 025 Active loratadine (EQ All Day Allergy Relief) 10 MG tablet TAKE 1 TABLET BY MOUTH EVERY DAY 90 tablet 1 025 Active cholecalcifero l (Vitamin D-3) 25 MCG (1000 UT) tablet TAKE 1 TABLET BY MOUTH EVERY DAY 90 tablet 1 025 Active metoprolol succinate XL (Toprol-XL) 25 MG 24 hr tablet TAKE 1 TABLET BY MOUTH EVERY DAY 90 tablet 1 025 Active losartan-hydro CHLOROthiazide (Hyzaar) 100-25 MG tablet TAKE 1 TABLET BY MOUTH EVERY DAY 30 tablet 3 025 Active ezetimibe (Zetia) 10 MG tablet TAKE 1 TABLET BY MOUTH EVERY DAY 90 tablet 025 Active montelukast (Singulair) 10 MG tablet TAKE 1 TABLET BY MOUTH ONCE DAILY IN THE EVENING 90 tablet 025 Active albuterol 108 (90 Base) MCG/ACT inhalerIndicat ions:Asthma, unspecified asthma severity, unspecified whether complicated, unspecified whether persistent INHALE 2 PUFFS BY MOUTH EVERY 4 TO 6 HOURS NEEDED 18 g 025 Active fluticasone (Flonase Allergy Relief) 50 MCG/ACT nasal sprayIndicatio ns:Asthma, unspecified asthma severity, unspecified whether complicated, unspecified whether persistent Administer 2 sprays into each nostril 2 times daily. 16 g 3 025 Active celecoxib (CeleBREX) 200 MG capsule Take 1 capsule (200 mg) by mouth if needed each day for mild pain for up to 20 days. 20 capsule 025 2024 Active busPIRone (Buspar) 10 MG tablet TAKE 1/2 TABLET BY MOUTH TWICE A DAY 90 tablet 025 Active fluticasone (Flonase Allergy Relief) 50 MCG/ACT nasal sprayIndicatio ns:Asthma, unspecified asthma severity, unspecified whether complicated, unspecified whether persistent Administer 2 sprays into each nostril in the morning and at bedtime. 16 g 3 022 11/05/ 2025 Discontinued(R eorder (will not trigger notification to Pharmacy)) busPIRone (Buspar) 10 MG tablet Take 1/2 (one-half) tablet by mouth twice daily 90 tablet 025 2024 Discontinued albuterol 108 (90 Base) MCG/ACT inhalerIndicat ions:Asthma, unspecified asthma severity, unspecified whether complicated, unspecified whether persistent INHALE 2 PUFFS BY MOUTH EVERY 4 TO 6 HOURS NEEDED 18 g 025 2024 Discontinued Active Problems Problem Noted Date [...] Encounters Date Type Department Care Team Description 05/09/2025 Refill [facility] [place] [address] Apolinar Koenig MD 05/05/2025 2:15 PM EST Office Visit [facility] MEDICINE [address] [place] [address] Apolinar Koenig MD Chronic obstructive pulmonary disease, unspecified COPD type ([facility]) ([facility]) (Primary Dx); Asthma, unspecified asthma severity, unspecified whether complicated, unspecified whether persistent; DJD (degenerative joint disease), lumbosacral; Encounter for vaccination; Encounter for immunization 05/05/2025 Travel 05/04/2025 Refill [facility] MED[facility]INE [address] [place] [address] Apolinar Koenig MD Asthma, unspecified asthma severity, unspecified whether complicated, unspecified whether persistent 05/04/2025 Telephone [facility] [address] [place] [address] Vito Kim MA chart prep 04/13/2025 Orders Only [facility] External Provider, [facility] 04/09/2025 Refill [facility] MEDICINE [address] [place] [address] Apolinar Koenig MD 04/04/2025 Refill [facility] MED[facility] [address] [place] [address] Apolinar Koenig MD 03/29/2025 Refill [facility] MED[facility]INE [address] [place] [address] Apolinar Koenig MD Asthma, unspecified asthma severity, unspecified whether complicated, unspecified whether persistent 03/25/2025 Refill [facility] MED[facility]INE [address] [place] [address] Apolinar Koenig MD 03/15/2025 Refill [facility] MED[facility]INE [address] [place] [phone] Apolinar Koenig MD from Last 3 Months Immunizations Immunization Administration Dates Next Due INFLUENZA VACCINE QUADRIVALE NT RECOMBINANT PRESERVATIVE FREE RIV4 03/29/2020 Influenza injectable quadriv alent IIV4 with preservative 04/29/2018,05/13/2017,04/16/2016 Influenza injectable quadriv alent preservative free 05/07/2023,05/22/2022,05/16/2021,03/23 Influenza, High Dose Seasona l, Preservative Free 05/05/2025,03/13/2024 Influenza, IIV3, injectable 04/14/2015,1 ,03/10/2013,03/18,03/15/2011,05/12/2010,04/29/2008 Moderna Covid-19 Vaccine 6+ Bivalent 10/17/2022 Pfizer Covid-19 Vaccine 12+ 05/05/2025,,10/15/2023 Pneumococcal Conjugate PCV 20 03/13/2024 Pneumococcal Polysaccharide [...] Answer Date Recorded Patient Health Questionnaire-9 Score 12 05/05/2025 Patient Health Questionnaire-9 Score 12 05/05/2025 Last PHQ-9: Questionnaire Data Not on file 1 07/05/2024 Housing Stability Answer Date Recorded What is your housing situation today? I have betty shanti 03/13/[address] you li [...] Answer Date Recorded Patient Health Questionnaire-2 Score 4 05/05/2025 Internet Access Answer Date Recorded Internet Access [...] Sign Reading Time Taken Comments Blood Pressure 132/74 05/05/2025 2:17 PM EST Pulse 85 05/05/2025 2:17 PM EST Temperature 36.2 C (97.1 F) 05/05/2025 2:17 PM EST Respiratory Rate 12 05/05/2025 2:17 PM EST Oxygen Saturation 96% 05/05/2025 2:17 PM EST Inhaled Oxygen Concentration - - Weight 79.4 kg (175 lb) 05/05/2025 2:17 PM EST Height 165.1 cm (5' 5 ) 05/05/2025 2:17 PM EST Body Mass Index 29.12 05/05/2025 2:17 PM EST Plan of Treatment Health Maintenance Due Date Last Done Comments CT Colonography 1960 FIT DNA/Cologuard 1960 FIT 1960 FOBT 1960 Sigmoidoscopy 1960 Hepatitis C Screening 1976 RSV Patients and Patients Aged 60 years or older (1 - Risk 50-74 years 1-dose series) 2008 Mammogram 05/13/2025 05/13/2024, 11/0 03/2023, 05/08/2023, Additional history exists Alcohol/Substance Use Screening 05/19/2025 05/19/2024 HPV/Cotest 06/15/2025 05/07/2018 Pap Smear 06/15/2025 06/15/2020 SDOH Screening 08/24/2025 08/24/2024 COVID-19 Vaccine ( season) 2025 05/05/2025, 05/19/2024, 10/15/2023, Additional history exists Depression Monitoring 11/02/2025 05/05/2025, 025 Tobacco Screening 05/05/2026 05/05/2025 Colonoscopy 08/14/2027 08/14/2022, 08/14/2019 Colorectal Cancer Screening 08/14/2027 Lipid Panel 11/04/2029 11/04/2024, 03/02, 10/17/2022, Additional history exists DTaP/Tdap/Td Vaccines (3 - Td or Tdap) 05/07/2033 05/07/2023, 05/14/2011 Zoster Vaccines Completed 07/13/2020, 03/29/2020 Pneumococcal Vaccine: 50+ Years Completed 03/13/2024, 05/13/2017 Influenza Vaccine Completed 05/05/2025, , 05/07/2023, Additional history exists HIB Vaccines Aged Out [...] VIEWS LEFT Routine 04/13/2025 3:00 PM EDT LIPID PANEL, STANDARD Routine 11/04/2024 1:59 PM [...] Laterality Modality Lower Extremities, Knee Right Radiogra phic Imaging 04/13/2025 3:00 PM EDT Narrative 04/13/2025 3:35 PM EDT [place] [address] XRay Report Signed Patient: Kari Alvarado MR#: [id number] : 1960 Acct:[id number] Age/Sex: 64 / F ADM Date: 04/13/25 Loc: [facility] Attending Dr: Dasia GOODEN Ordering Physician: Dasia Ray Date of Service: 04/13/25 Procedure(s): XR knee RT 3V Accession Number(s): [id number] cc: Dasia Ray; Name,Apolinar HAINES Reason for [...] signed by Matthew Rivero MD in OV> 04/13/251531 DD/ 1500 TD/TT: 04/13/25 1520 Artificial Cherry Maker: Procedure Note Donotuseinterpreter, Image - 04/13/[address] [address] XRay Report Signed Patient: Trevor Alvarado#: [id number] : 9Acct:[id number] Age/Sex: 64 / FADM Date: 04/13/25 Loc: RADHIKAMyrnaESPINOZAAY Attending Dr: Dasia GOODEN Ordering Physician: Dasia Ray Date of Service: 04/13/25 Procedure(s): XR knee RT 3V Accession Number(s): [id number] cc: Dasia Ray; Name,Apolinar HANIES Reason for Exam: M25.561 - Pain in [...] by Matthew Rivero MD in OV> 04/13/25 153 DD/ 1500 TD/TT: 04/13/25 1520 Artificial Cherry Maker: us [facility] External Provider IMG XR PROCEDURES Final Result * XR Knee 3 Views Left (04/13/2025 3:00 PM EDT) Anatomical Region Laterality Modality Lower Extremities, Knee Left Radiogra phic Imaging 04/13/2025 3:00 PM EDT Narrative 04/13/2025 3:34 PM EDT [address] [address] XRay Report Signed Patient: Kari Alvarado MR#: [id number] : 1960 Acct:[id number] Age/Sex: 64 / F ADM Date: 04/13/25 Loc: SHU Attending Dr: Dasia GOODEN Ordering Physician: Dasia Ray Date of Service: 04/13/25 Procedure(s): XR knee LT 3V Accession Number(s): [id number] cc: Dasia Ray; Name,Apolinar HAINES Reason for [...] 04/13/25 1531 DD/ 1500 TD/TT: 04/13/25 1520 Artificial Cherry Maker: Procedure Note Donotuseinterpreter, Image - 04/13/[address] [address] XRay Report Signed Patient: Dahlia AlvaradoR#: [id number] : 1960cct:[id number] Age/Sex: 64 / FADM Date: 04/13/25 Loc: SHU Attending Dr: Dasia GOODEN Ordering Physician: Dasia Ray Date of Service: 04/13/25 Procedure(s): XR knee LT 3V Accession Number(s): [id number] cc: Dasia Ray; Name,Apolinar HAINES Reason for [...] 04/13/25 1531 DD/ 1500 TD/TT: 04/13/25 1520 Artificial Cherry Maker: [facility] External Provider IMG XR PROCEDURES Final Result * (ABNORMAL) Lipid Panel, Standard (11/04/2024 1:59 PM EDT) Triglycerides 234(H) <150 mg/dL [facility] Comment:Desirable Triglyceri de: less than 150 mg/dLBorderline High Triglyceride 150-199 mg/dLHigh Triglyceride: 200-499 mg/dLVery High Triglyceride: greater than or equal to 5OO mg/dL Cholesterol 230(H) <200 mg/dL [facility] Comment:Desirable Cholestero l: less than 200 mg/dLBorderline High Cholesterol: 200-239 mg/dLHigh Cholesterol: greater than 239 mg/dL LDL Cholesterol Calculated 142(H) <100 mg/dL [facility] Comment:Desirable LDL: less than 100 mg/dLNear Optimal/Above Optimal LDL: 110- 129 mg/dLBorderline High LDL: 130-159 mg/dLHigh LDL: 160-189 mg/dLVery High LDL: greater than or equal to 190 mg/dL HDL Cholesterol 42 >40 mg/dL [facility] Comment:Desirable HDL: great er than 40 mg/dL Note: This HDL assay may give artificially low results in patients with liver disease. Blood Venous blood specimen / Unknown 11/04/2024 1:59 PM EDT 11/04/2024 4:11 PM EDT Apolinar Koenig MD LAB BLOOD ORDERABLES Final Resul t [facility] [address] [place] [address] [phone] * BI Mammogram Screening Tomosynthesis Bilateral (05/13/2024 2:02 PM EST) Anatomical Region Laterality Modality Breast Bilateral Mammography 05/13/2024 2:02 PM EST Narrative 05/22/2024 8:48 AM EST [address] [place] [address] Mammography Report Signed Patient: Kari Alvarado MR#: [id number] : 1960 Acct:[id number] Age/Sex: 63 / F ADM Date: 05/13/24 Loc: HO.MAMMO Attending Dr: Apolinar Koenig MD Ordering Physician: Apolinar Koenig MD Results: 1Negative Date of Service: 05/13/24 Follow Up: 1 Year From Orig ina Mammogram Procedure(s): MM tomosynthesis screening BI Accession Number(s): [id number] cc: Apolinar Koenig MD EXAMINATION: MM SCREENING [...] 05/22/24 0845 DD/ 1402 TD/TT: 05/13/24 1430 Artificial Cherry Maker: Procedure Note Donotuseinterpreter, Image - 05/22/2024 [facility] [address] [place], [place] [address] Mammography Report Signed Patient: Trevor Alvarado#: [id number] : 9Acct:[id number] Age/Sex: 63 / FADM Date: 05/13/24 Loc: HO.MAMMO Attending Dr: Apolinar Koenig MD Ordering Physician: Apolinar Koenig MDResults: 1Negative Date of Service: 05/13/24Follow Up: 1 Year From Orig inal Mammogram Procedure(s): MM tomosynthesis screening BI Accession Number(s): [id number] cc: Apolinar Koenig MD EXAMINATION: MM SCREENING [...] 05/22/24 0845 DD/ 1402 TD/TT: 05/13/24 1430 Artificial Cherry Maker: Apolinar Koenig MD IMMichelle BI PROCEDURES Final Result * Hm Colonoscopy (08/14/2022 3:12 PM EST) Colonoscopy Normal Normal Narrative BintaPrerna palmer - 08/14/2022 3:12 PM EST Recommended 5 year follow up Historical Provider HEALTH MAINTENANCE Final Result * Hm Pap Smear (06/15/2020 12:00 AM EST) Historical Provider HEALTH MAINTENANCE Final Result * HPV mRNA E6/E7 (05/07/2018 10:00 AM EST) HPV mRNA E6/E7 Not Detected NOT DETECTED [facility] Comment: This test was performed using the APTIMA(R) HPV Assay ([employer] This assay detects E6/E7 viral messenger RNA (mRNA) from 14 high-risk HPV types (16,18,31,33,35,39,45,51, 52,56,58,59,66,68). For additional information please refer to: http://education.O[employer].Grab Media/faq/FLH630g2 (This link is being provided for informational/ educational purposes only.) The analytical performance characteristics of this assay have been determined by [employer] [place], [place]. The modifications have not been cleared or approved by the FDA. This assay has been validated pursuant to the CLIA regulations and is used for clinical purposes. Test Performed by [email or web address], [employer] [place], [address] [place] [address] Layo Moss M.D., Ph.D., Director of Laboratories , CLIA [id number] Please note: Effective 03/12/2016, HPV testing will be performed using [employer]'s APTIMA test which targets mRNA. Detecting mRNA instead of DNA, as in older methods, offers significant improvements in specificity. 05/07/2018 10:0 0 AM EST us Rosanna Puente CNM HISTORICAL/NON ORDERABLE LABS Final Result [facility] [address] from Last 3 Months or Most Recently Relevant to Health Maintenance Insurance [employer] MEDICARE REPLACEMENT [facility] STANDARD Care Teams Sole Tacker Relationship Specialty Start Date End Date Name, MD Apolinar [address] [place] [address] PCP - General Family Medicine 07/01/18
== END 2025-05-19 14:46 | disposition home or self-care (01) ==
LOC: HO.MAMMO 14:45
PROVIDERS: PCP Internal Medicine Geriatric Medicine; Visit Provider Internal Medicine Geriatric Medicine
DX: Z12.31 Encounter for screening mammogram for malignant neoplasm of breast (principal)
CPT/HCPCS: 77063; 77067

== ENCOUNTER 2025-05-24 11:40 | Outpatient (REF) | payer MEDICARE, SELFPAY ==
--- NOTE | ~2025-05-24 | MR_ITS ---
EXAM: MRI Lumbar Spine without Contrast. TECHNIQUE: Multiplanar multisequence MRI of the lumbar spine with performed without contrast. 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 Marrow and end-plates: There is a lesion in superior T11 and extending from superior to inferior margin of L3 that demonstrates increased signal on T1 and T2 sequences with coarse trabeculations consistent with benign vertebral hemangiomas. Modic 2 signal change is evident across T12-L1. There is also degenerative cyst or Schmorl's node in the inferior T12 endplate. Faint Modic 2 signal is present and superior L5. There is Modic 2 signal involving L5-S1. Alignment: L1-2: There is mild grade 1 retrolisthesis similar to the prior x-ray. L5-S1: There is grade 1 anterolisthesis and chronic bilateral pars interarticularis defects similar to the prior x-ray. Soft tissues: Numerous parapelvic cysts are present in the kidneys, greater on the left. There are 2 small simple renal cysts in the right kidney. There is an 11 mm left adrenal gland nodule Conus: The termination of conus medullaris is within normal limits at the level of lower T12. T12-L1: There is mild loss disc height and circumferential broad based disc bulge with degenerative endplate irregularities and osteophytes not resulting in spinal stenosis or foraminal narrowing. L1-L2: There is moderate loss of disc height and circumferential broad-based disc bulge not resulting in spinal stenosis or foraminal narrowing. L2-L3: There is subtle disc bulge without spinal stenosis or foraminal narrowing. L3-L4: There is subtle broad-based disc bulge and minimal loss of disc height. There is mild facet hypertrophy. There is no spinal stenosis or foraminal narrowing. L4-L5: There is mild loss disc height and circumferential broad-based disc bulge. There is moderate right and mild left facet arthropathy. There is no spinal stenosis. There is minimal right foraminal narrowing. There is no left foraminal narrowing. L5-S1: There is grade 1 anterolisthesis with chronic bilateral pars interarticularis defects. There is moderate degenerative change in the right facet joint and [id number] degenerative changes on the left. There is no spinal stenosis. There is mild to moderate right and severe left foraminal narrowing with compression of the left L5 nerve. MR/MR lumbar spine wo con IMPRESSION: Indeterminate 11 mm left adrenal gland nodule. Recommend 1-year followup adrenal protocol CT. Also, if clinically indicated, consider concurrent laboratory evaluation for possible pheochromocytoma. Multilevel degenerative disc disease and facet arthropathy without spinal stenosis. L5-S1: There is grade 1 anterolisthesis with chronic bilateral pars interarticularis defects. There is mild to moderate right and severe left foraminal narrowing with compression of the left L5 nerve. Electronically signed by: Matthew Rivero MD 05/24/2025 12:45 PM EST
--- OUTSIDE RECORDS SUMMARY | 2025-05-24 15:31 | XMS_ITS | Encounter Summary ---
Author Organization [employer] Address 75 [facility] 7t [place] [address] Care Team Providers Care Quality Consultant Name Role Phone Name, Apolinar HAINES Primary Care Provider [phone] Reason for Visit * Reason Comments Med Refill Encounter Details Date Type Department Care Team ([facility] st Contact Info) Description 11/16/2022 Refill [facility] MEDICINE [address] [place] [address] [phone] Name, MD Apolinar [address] [place] [address] Social History Tobacco Use Types Packs/Day Years [...] Recorded In the last 10 days, have mraiposa otto been in contact with someone who [...] documented as of this encounter Care Teams Quality Consultant Relationship Specialty Start Date End Date Name, MD Apolinar [address] [place] [address] PCP - General Family Medicine 07/01/18 documented as of this encounter
--- OUTSIDE RECORDS SUMMARY | 2025-05-24 15:31 | XMS_ITS | Encounter Summary ---
Author Organization [employer] Address 75 [facility] 7t [place] [address] Care Team Providers Care Reimbursement Rep Name Role Phone Name, Apolinar HAINES Primary Care Provider [phone] Encounter Details Date Type Department Care Team (Late st Contact Info) Description 11/16/2022 Orders Only [facility] MED & PEDS [address] [place] [address] Debbi Alas LPN Social History Tobacco Use [...] documented as of this encounter Care Teams Reimbursement Rep Relationship Specialty Start Date End Date Name, MD Apolinar [address] [place] [address] PCP - General Family Medicine 07/01/18 documented as of this encounter
--- OUTSIDE RECORDS SUMMARY | 2025-05-24 15:31 | XMS_ITS | Encounter Summary ---
Author Organization [facility] Address [address] [place] [address] Care Team Providers Care Service Order Dispatcher Chief Name Role Phone Name, Apolinar HAINES Primary Care Provider Unavailabl e Encounter Details Date Type Department Care Team Description 04/18/2015 Release of Information Medical Records [address] [place] [id number] Abstract, Provider Social History Tobacco Use Types [...] on filedocumented in this encounter Care Teams Service Order Dispatcher Chief Relationship Specialty Start Date End Date Name, MD Apolinar PCP - General 08/14/07 documented as of this encounter
--- OUTSIDE RECORDS SUMMARY | 2025-05-24 15:31 | XMS_ITS | Encounter Summary ---
Author Organization [facility] Address [address] [place] [address] Care Team Providers Care Petroleum Engineer Name Role Phone Name, Apolinar HAINES Primary Care Provider Unavailabl e Encounter Details Date Type Department Care Team Description 12/19/2017 Release of Information Medical Records [address] [place] [address] Abstract, Provider Social History Tobacco Use Types [...] on filedocumented in this encounter Care Teams Petroleum Engineer Relationship Specialty Start Date End Date Name, MD Apolinar PCP - General 08/14/07 documented as of this encounter
--- OUTSIDE RECORDS SUMMARY | 2025-05-24 15:31 | XMS_ITS | Encounter Summary ---
Author Organization [employer] Address [address] [place] [address] 7t [place] [address] Care Team Providers Care Shift Boss Name Role Phone Name, Apolinar HAINES Primary Care Provider [phone] Reason for Visit * Reason Onset Date Comments triage 08/02/2022 Encounter Details Date Type Department Care Team (Late st Contact Info) Description 08/02/2022 Telephone [facility] MEDICINE [address] [place], [place] [phone] Name, MD Apolinar [address] [place] [address] triage Social History Tobacco Use Types Packs/Day [...] on filedocumented in this encounter Care Teams Shift Boss Relationship Specialty Start Date End Date Name, MD Apolinar [address] [place], [place] [phone] PCP - General Family Medicine 07/01/18 documented as of this encounter
--- OUTSIDE RECORDS SUMMARY | 2025-05-24 15:31 | XMS_ITS | Encounter Summary ---
Author Organization [employer] Address [address] [facility] 7t [place] [address] Care Team Providers Care Historic Sites Registrar Name Role Phone Name, Apolinar HAINES Primary Care Provider [phone] Encounter Details Date Type Department Care Team (Late st Contact Info) Description 11/16/2022 Abstract [facility] MEDICINE [address] [place], [place] [phone] Name, MD Apolinar [address] [place] [address] Social History Tobacco Use Types Packs/Day Years [...] documented as of this encounter Care Teams Historic Sites Registrar Relationship Specialty Start Date End Date Name, MD Apolinar [address] [place] [id number] PCP - General Family Medicine 07/01/18 documented as of this encounter
--- OUTSIDE RECORDS SUMMARY | 2025-05-24 15:31 | XMS_ITS | Encounter Summary ---
Author Organization [employer] Address [address] [facility] 7t [place] [address] Care Team Providers Care Access Service Representative Name Role Phone Name, Apolinar HAINES Primary Care Provider [phone] Reason for Visit * Reason Onset Date Comments Appointment Request 07/27/2024 Encounter Details Date Type Department Care Team ([facility] st Contact Info) Description 07/27/2024 Telephone [facility] MEDICINE [address] [place], [place] [phone] Name, MD Apolinar [address] [place] [address] Appointment Request Social History Tobacco Use Types [...] not having any Concerns. Contact pt at [phone] documented in this encounter Plan of Treatment Not on file documented as of this encounter Visit Diagnoses Not on filedocumented in this encounter Additional Health Concerns Assessment Noted Time PHQ-9 Depression Total Score: 3 04/17/20 24 11:34 AM EDT documented as of this encounter Care Teams Access Service Representative Relationship Specialty Start Date End Date Name, MD Apolinar [address] [place] [address] PCP - General Family Medicine 07/01/18 documented as of this encounter
--- OUTSIDE RECORDS SUMMARY | 2025-05-24 15:31 | XMS_ITS | Encounter Summary ---
Author Organization [facility] Address [facility] [place] [address] Care Team Providers Care Hospital Admissions Officer Name Role Phone Name, Apolinar HAINES Primary Care Provider Unavailabl e Encounter Details Date Type Department Care Team Description 12/23/2010 Night Triage Doc Medical Records [address] [place] [phone] Abstract, Provider Social History Tobacco Use Types [...] on filedocumented in this encounter Care Teams Hospital Admissions Officer Relationship Specialty Start Date End Date Name, MD Apolinar PCP - General 08/14/07 documented as of this encounter
--- OUTSIDE RECORDS SUMMARY | 2025-05-24 15:31 | XMS_ITS | Encounter Summary ---
Author Organization [employer] Address [address] [facility] 7t [place] [address] Care Team Providers Care Ambulance Officer Name Role Phone Name, Apolinar HAINES Primary Care Provider [phone] Reason for Visit * Reason Comments Med Refill Encounter Details Date Type Department Care Team (Late st Contact Info) Description 06/11/2022 Refill [facility] MEDICINE [address] [place] [phone] Name, MD Apolinar [address] [place] [address] Social History Tobacco Use Types Packs/Day Years [...] on filedocumented in this encounter Care Teams Ambulance Officer Relationship Specialty Start Date End Date Name, MD Apolinar [address] [place] [address] PCP - General Family Medicine 07/01/18 documented as of this encounter
--- OUTSIDE RECORDS SUMMARY | 2025-05-24 15:31 | XMS_ITS | Encounter Summary ---
Author Organization [facility] Address [address] [place] [address] Care Team Providers Care Wafer Abrading Machine Tender Name Role Phone Name, Apolinar HAINES Primary Care Provider Unavailabl e Encounter Details Date Type Department Care Team Description 01/31/2010 Project Accountant Report Medical Records [address] [place] [address] Rene Hill MD Social History Tobacco Use [...] on filedocumented in this encounter Care Teams Wafer Abrading Machine Tender Relationship Specialty Start Date End Date Name, MD Apolinar PCP - General 08/14/07 documented as of this encounter
--- OUTSIDE RECORDS SUMMARY | 2025-05-24 15:31 | XMS_ITS | Encounter Summary ---
Author Organization [employer] Address [address] [facility] 7t [place] [address] Care Team Providers Care Lithographic Camera Operator Name Role Phone Name, Aploinar HAINES Primary Care Provider [phone] Encounter Details Date Type Department Care Team (Late st Contact Info) Description 05/19/2025 Orders Only [facility] MEDICINE [address] [place], [place] [phone] Name, MD Apolinar [address] [place], [place] [phone] Social History Tobacco Use Types Packs/Day Years [...] Procedure Name Priority Date/Time Associated Diagnosis Comments MR LUMBAR SPINE WO CONTRAST Routine 05/24/2025 11:48 AM EST BI MAMMOGRAM SCREENING TOMOSYNTHESIS BILATERAL Routine 05/19/2025 2:55 PM EST documented in this encounter Results * MR Lumbar Spine w/o Contrast (05/24/2025 11:48 AM EST) Anatomical Region Laterality Modality Spine, L-spine Magnetic Resonan ce 05/24/2025 11:4 8 AM EST Narrative 05/24/2025 12:49 PM EST [place] [address] Magnetic Resonance Report Signed Patient: Kari Alvarado MR#: [id number] : 1960 Acct:[id number] Age/Sex: 64 / F ADM Date: 05/24/25 Loc: HO.MRI Attending Dr: Dasia GOODEN Ordering Physician: Dasia Ray Date of Service: 05/24/25 Procedure(s): MR lumbar spine wo con Accession Number(s): [id number] cc: Dasia Ray; Name,Apolinar HAINES Reason for Exam: 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 EXAM: MRI Lumbar Spine without Contrast. TECHNIQUE: Multiplanar multisequence MRI of the lumbar spine with performed without contrast. 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 Marrow and end-plates: There is a lesion in superior T11 and extending from superior to inferior margin of L3 that demonstrates increased signal on T1 and T2 sequences with coarse trabeculations consistent with benign vertebral hemangiomas. Modic 2 signal change is evident across T12-L1. There is also degenerative cyst or Schmorl's node in the inferior T12 endplate. Faint Modic 2 signal is present and superior L5. There is Modic 2 signal involving L5-S1. Alignment: L1-2: There is mild grade 1 retrolisthesis similar to the prior x-ray. L5-S1: There is grade 1 anterolisthesis and chronic bilateral pars interarticularis defects similar to the prior x-ray. Soft tissues: Numerous parapelvic cysts are present in the kidneys, greater on the left. There are 2 small simple renal cysts in the right kidney. There is an 11 mm left adrenal gland nodule Conus: The termination of conus medullaris is within normal limits at the level of lower T12. T12-L1: There is mild loss disc height and circumferential broad based disc bulge with degenerative endplate irregularities and osteophytes not resulting in spinal stenosis or foraminal narrowing. L1-L2: There is moderate loss of disc height and circumferential broad-based disc bulge not resulting in spinal stenosis or foraminal narrowing. L2-L3: There is subtle disc bulge without spinal stenosis or foraminal narrowing. L3-L4: There is subtle broad-based disc bulge and minimal loss of disc height. There is mild facet hypertrophy. There is no spinal stenosis or foraminal narrowing. L4-L5: There is mild loss disc height and circumferential broad-based disc bulge. There is moderate right and mild left facet arthropathy. There is no spinal stenosis. There is minimal right foraminal narrowing. There is no left foraminal narrowing. L5-S1: There is grade 1 anterolisthesis with chronic bilateral pars interarticularis defects. There is moderate degenerative change in the right facet joint and [id number] degenerative changes on the left. There is no spinal stenosis. There is mild to moderate right and severe left foraminal narrowing with compression of the left L5 nerve. MR/MR lumbar spine wo con IMPRESSION: Indeterminate 11 mm left adrenal gland nodule. Recommend 1-year followup adrenal protocol CT. Also, if clinically indicated, consider concurrent laboratory evaluation for possible pheochromocytoma. Multilevel degenerative disc disease and facet arthropathy without spinal stenosis. L5-S1: There is grade 1 anterolisthesis with chronic bilateral pars interarticularis defects. There is mild to moderate right and severe left foraminal narrowing with compression of the left L5 nerve. Electronically signed by: Matthew Rivero MD 05/24/2025 12:45 PM [facility] Dictated By: Matthew Rivero MD Signed By: <Electronically signed by Matthew Rivero MD in OV> 05/24/25 1245 DD/ 1148 TD/TT: 05/24/25 1206 Paraplanner: Procedure Note Donotuseinterpreter, Image - 05/24/2025 [place] [address] Magnetic Resonance Report Signed Patient: Trevor Alvarado#: [id number] : 9Acct:[id number] Age/Sex: 64 / FADM Date: 05/24/25 Loc: HO.MRI Attending Dr: Dasia GOODEN Ordering Physician: Dasia Ray Date of Service: 05/24/25 Procedure(s): MR lumbar spine wo con Accession Number(s): [id number] cc: Dasia Ray; Name,Apolinar HAINES Reason for Exam: M51.369 - Other intervertebral disc degeneration, lumbarregion without ... EXAM: MRI Lumbar Spine without Contrast. TECHNIQUE: Multiplanar multisequence MRI of the lumbar spine with performed without contrast. 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 Marrow and end-plates: There is a lesion in superior T11 and extending from superior to inferior margin of L3 that demonstrates increased signal on T1 and T2 sequences with coarse trabeculations consistent with benign vertebral hemangiomas. Modic 2 signal change is evident across T12-L1. There is also degenerative cyst or Schmorl's node in the inferior T12 endplate. Faint Modic 2 signal is present and superior L5. There is Modic 2 signal involving L5-S1. Alignment: L1-2: There is mild grade 1 retrolisthesis similar to the prior x-ray. L5-S1: There is grade 1 anterolisthesis and chronic bilateral pars interarticularis defects similar to the prior x-ray. Soft tissues: Numerous parapelvic cysts are present in the kidneys, greater on the left. There are 2 small simple renal cysts in the right kidney. There is an 11 mm left adrenal gland nodule Conus: The termination of conus medullaris is within normal limits at the level of lower T12. T12-L1: There is mild loss disc height and circumferential broad based disc bulge with degenerative endplate irregularities and osteophytes not resulting in spinal stenosis or foraminal narrowing. L1-L2: There is moderate loss of disc height and circumferential broad-based disc bulge not resulting in spinal stenosis or foraminal narrowing. L2-L3: There is subtle disc bulge without spinal stenosis or foraminal narrowing. L3-L4: There is subtle broad-based disc bulge and minimal loss of disc height. There is mild facet hypertrophy. There is no spinal stenosis or foraminal narrowing. L4-L5: There is mild loss disc height and circumferential broad-based disc bulge. There is moderate right and mild left facet arthropathy. There is no spinal stenosis. There is minimal right foraminal narrowing. There is no left foraminal narrowing. L5-S1: There is grade 1 anterolisthesis with chronic bilateral pars interarticularis defects. There is moderate degenerative change in the right facet joint and ider-sv-gcgubass degenerative changes on the left. There is no spinal stenosis. There is mild to moderate right and severe left foraminal narrowing with compression of the left L5 nerve. MR/MR lumbar spine wo con IMPRESSION: Indeterminate 11 mm left adrenal gland nodule. Recommend 1-year followup adrenal protocol CT. Also, if clinically indicated, consider concurrent laboratory evaluation for possible pheochromocytoma. Multilevel degenerative disc disease and facet arthropathy without spinal stenosis. L5-S1: There is grade 1 anterolisthesis with chronic bilateral pars interarticularis defects. There is mild to moderate right and severe left foraminal narrowing with compression of the left L5 nerve. Electronically signed by: Matthew Rivero MD 05/24/2025 12:45 PM EST RP Dictated By: Matthew Rivero MD Signed By: <Electronically signed by Matthew Rivero MD in OV> 05/24/25 1245 DD/ 1148 TD/TT: 05/24/25 1206 Paraplanner: [facility] External Provider IMG MRI PROCEDURES Final Result * BI Mammogram Screening Tomosynthesis Bilateral (05/19/2025 2:55 PM EST) Anatomical Region Laterality Modality Breast Bilateral Mammography 05/19/2025 2:55 PM EST Narrative 05/23/2025 5:31 PM EST [address] [place] [address] Mammography Report Signed Patient: Kari Alvarado MR#: [id number] : 1960 Acct:[id number] Age/Sex: 64 / F ADM Date: 05/19/25 Loc: HO.MAMMO Attending Dr: Apolinar Koenig MD Ordering Physician: Apolinar Koenig MD Results: 1Negative Date of Service: 05/19/25 Follow Up: 1 Year From [facility] ina Mammogram Procedure(s): MM tomosynthesis screening BI Accession Number(s): [id number] cc: Apolinar Koenig MD Reason For Exam: SCREENING EXAMINATION: MM SCREENING DIGITAL BREAST TOMOSYNTHESIS, BILATERAL CLINICAL INFORMATION: Screening. Asymptomatic. COMPARISON: Comparison made to multiple prior, most recent May 13, 2024, and most remote March 18, 2018. TECHNIQUE: Digital breast tomosynthesis is performed in mediolateral oblique and craniocaudal views along with computer-aided detection (CAD). Synthesized 2D images are generated from the tomosynthesis. FINDINGS: BREAST COMPOSITION: There are scattered areas of fibroglandular density. BILATERAL BREASTS: No significant masses, suspicious calcifications or other abnormalities are seen in either breast. MM/MM tomosynthesis screening BI IMPRESSION: BILATERAL BREASTS: Negative, no mammographic evidence of malignancy. Normal interval follow-up is recommended in 12 months. ASSESSMENT: BI-RADS: Category 1: Negative RECOMMENDATION: Routine annual mammography screening. FOLLOW-UP: 1 year F/U This examination should not preclude the clinical evaluation of a suspicious palpable abnormality. This patient's information was entered into a reminder system with a target due date for their next mammogram. Electronically signed by: Ellie Baron MD 05/23/2025 05:28 PM EST Dictated By: Ellie Baron MD Signed By: <Electronically signed by Ellie Baron MD in OV> 05/23/25 1728 DD/ 1455 TD/TT: 05/19/25 1510 Paraplanner: Procedure Note Donotuseinterpreter, Image - 05/23/2025 [facility] [address] [place] [address] Mammography Report Signed Patient: Trevor Alvarado#: [id number] : 9Acct:[id number] Age/Sex: 64 / FADM Date: 05/19/25 Loc: .MAMMO Attending Dr: Apolinar Koenig MD Ordering Physician: Apolinar Koenigesults: 1Negative Date of Service: 05/19/25Follow Up: 1 Year From Orig ina Mammogram Procedure(s): MM tomosynthesis screening BI Accession Number(s): [id number] cc: Apolinar Koenig MD Reason For Exam: SCREENING EXAMINATION: MM SCREENING DIGITAL BREAST TOMOSYNTHESIS, BILATERAL CLINICAL INFORMATION: Screening. Asymptomatic. COMPARISON: Comparison made to multiple prior, most recent May 13, 2024, and most remote March 18, 2018. TECHNIQUE: Digital breast tomosynthesis is performed in mediolateral oblique and craniocaudal views along with computer-aided detection (CAD). Synthesized 2D images are generated from the tomosynthesis. FINDINGS: BREAST COMPOSITION: There are scattered areas of fibroglandular density. BILATERAL BREASTS: No significant masses, suspicious calcifications or other abnormalities are seen in either breast. MM/MM tomosynthesis screening BI IMPRESSION: BILATERAL BREASTS: Negative, no mammographic evidence of malignancy. Normal interval follow-up is recommended in 12 months. ASSESSMENT: BI-RADS: Category 1: Negative RECOMMENDATION: Routine annual mammography screening. FOLLOW-UP: 1 year F/U This examination should not preclude the clinical evaluation of a suspicious palpable abnormality. This patient's information was entered into a reminder system with a target due date for their next mammogram. Electronically signed by: Ellie Baron MD 05/23/2025 05:28 PM EST Dictated By: Ellie Baron MD Signed By: <Electronically signed by Ellie Baron MD in OV> 05/23/25 1728 DD/ 1455 TD/TT: 05/19/25 1510 Paraplanner: us Apolinar Koenig MD IMG BI PROCEDURES Final Result documented in this encounter Visit Diagnoses Not on filedocumented in this encounter Additional Health Concerns Assessment Noted Time PHQ-9 Depression Total Score: 12 025 2:55 PM EST documented as of this encounter Care Teams Lithographic Camera Operator Relationship Specialty Start Date End Date Name, MD Apolinar [address] [place] [address] PCP - General Family Medicine 07/01/18 documented as of this encounter
--- OUTSIDE RECORDS SUMMARY | 2025-05-24 15:31 | XMS_ITS | Encounter Summary ---
Author Organization [facility] Address [address] [place] [address] Care Team Providers Care Layer Out Name Role Phone Name, Apolinar HAINES Primary Care Provider Unavailabl e Encounter Details Date Type Department Care Team Description 12/26/2010 Novelty Twister Operator Report Medical Records [address] [place] [id number] Rene Hill MD Social History Tobacco Use [...] on filedocumented in this encounter Care Teams Layer Out Relationship Specialty Start Date End Date Name, MD Apolinar PCP - General 08/14/07 documented as of this encounter
--- OUTSIDE RECORDS SUMMARY | 2025-05-24 15:31 | XMS_ITS | Clinical Summary ---
Author Organization [employer] Address [address] [facility] 7t [place] [address] Care Team Providers Care Plaster Molder Name Role Phone Name, Apolinar HAINES Primary Care Provider [phone] Allergies Active Allergy Reactions Criticality Noted Date [...] Encounters Date Type Department Care Team Description 05/19/[address] [facility] [place] [address] Apolinar Koenig MD 05/09/[address] [facility] [address] [place] [address] [place] [address] Apolinar Koenig MD 05/05/2025 2:15 PM EST Office Visit [facility] [address] Apolinar Koenig MD Chronic obstructive pulmonary disease, unspecified COPD type (CMS/HCC) ([facility]) (Primary Dx); Asthma, unspecified asthma severity, unspecified whether complicated, unspecified whether persistent; DJD (degenerative joint disease), lumbosacral; Encounter for vaccination; Encounter for immunization 05/05/2025 Travel 05/04/[address] [facility] [address] [place] [address] Apolinar Koenig MD Asthma, unspecified asthma severity, unspecified whether complicated, unspecified whether persistent 05/04/[address] [facility] [address] [place] [address] Vito Kim MA chart prep 04/13/2025 Orders Only [facility] External Provider, [facility] 04/09/[address] [facility] [address] [place] [address] Apolinar Koenig MD 04/04/[address] [facility] [address] [place] [address] Apolinar Koenig MD 03/29/[address] [facility] [address] [place] [address] Apolinar Koenig MD Asthma, unspecified asthma severity, unspecified whether complicated, unspecified whether persistent 03/25/[address] [facility] [address] [place] [address] Apolinar Koenig MD 03/15/[address] [facility] [address] [place] [address] Name, MD Apolinar from Last 3 Months Immunizations Immunization Administration Dates Next Due INFLUENZA VACCINE QUADRIVALE NT RECOMBINANT PRESERVATIVE FREE RIV4 03/29/2020 Influenza injectable quadriv alent IIV4 with preservative 04/29/2018,05/13/2017,04/16/2016 Influenza injectable quadriv alent preservative free 05/07/2023,05/22/2022,05/16/2021,03/23 Influenza, High Dose Seasona l, Preservative Free 05/05/2025,03/13/2024 Influenza, IIV3, injectable 04/14/2015,1 ,03/10/2013,03/18,03/15/2011,05/12/2010,04/29/2008 Moderna Covid-19 Vaccine 6+ Bivalent 10/17/2022 Pfizer Covid-19 Vaccine 12+ 05/05/2025, 4,10/15/2023 Pneumococcal Conjugate PCV 20 03/13/2024 Pneumococcal Polysaccharide [...] 1960 FIT 1958 FOBT 1960 Sigmoidoscopy 1960 Alcohol/Substance Use Screening 1970 Hepatitis C Screening 1976 RSV Patients and Patients Aged 60 years or older (1 - Risk 50-74 years 1-dose series) 2008 HPV/Cotest 06/15/2025 05/07/2018 Pap Smear 06/15/2025 06/15/2020 SDOH Screening 08/24/2025 08/24/2024 COVID-19 Vaccine ( season) 2025 05/05/2025, 05/19/2024, 10/15/2023, Additional history exists Depression Monitoring 11/02/2025 05/05/2025, 025 Tobacco Screening 05/05/2026 05/05/2025 Mammogram 05/19/2026 05/19/2025, 05/01, 05/09/2023, Additional history exists Colonoscopy 08/14/2027 08/14/2022, 08/14/2019 Colorectal Cancer Screening [...] TOMOSYNTHESIS BILATERAL Routine 05/19/2025 2:55 PM EST XR KNEE 3 VIEWS RIGHT Routine 04/13/2025 3:00 PM EDT XR KNEE 3 VIEWS LEFT Routine 04/13/2025 3:00 PM EDT LIPID PANEL, STANDARD Routine 11/04/2024 1:59 PM EDT Hypertension, unspecified type High cholesterol HM COLONOSCOPY Routine 08/14/2022 3:12 PM EST HM PAP/HPV Routine 06/15/2020 12:00 AM EST ZZZ HISTORICAL HPV MRNA E6/E7 Routine 05/07/2018 10:00 AM EST from Last 3 Months or Most Recently Relevant to Health Maintenance Results * MR Lumbar Spine w/o Contrast (05/24/2025 11:48 AM EST) Anatomical Region Laterality Modality Spine, L-spine Magnetic Resonan ce 05/24/2025 11:4 8 AM EST Narrative 05/24/2025 12:49 PM EST [place] [address] Magnetic Resonance Report Signed Patient: Kari Alvarado MR#: [id number] : 1960 Acct:[id number] Age/Sex: 64 / F ADM Date: 05/24/25 Loc: HO.MRI Attending Dr: Dasia GOODEN Ordering Physician: Dasia Ray Date of Service: 05/24/25 Procedure(s): MR lumbar spine wo con Accession Number(s): [id number] cc: Dasia Ray; Name,Apolinar HAINES Reason for [...] change in the right facet joint and dinf-vw-wpshuxiu degenerative changes on the left. There is [...] 05/24/25 1245 DD/ 1148 TD/TT: 05/24/25 1206 Associate Project Manager: Procedure Note Donotuseinterpreter, Image - 05/24/2025 [place] [address] Magnetic Resonance Report Signed Patient: Trevor Alvarado#: [id number] : 9Acct:[id number] Age/Sex: 64 / FADM Date: 05/24/25 Loc: HO.MRI Attending Dr: Dasia GOODEN Ordering Physician: Dasia Ray Date of Service: 05/24/25 Procedure(s): MR lumbar spine wo con Accession Number(s): [id number] cc: Dasia Ray; Name,Apolinar HAINES Reason for [...] change in the right facet joint and atee-ll-iotxvjzu degenerative changes on the left. There is [...] 05/24/25 1245 DD/ 1148 TD/TT: 05/24/25 1206 Associate Project Manager: [facility] External Provider IMG MRI PROCEDURES Final Result * BI Mammogram Screening Tomosynthesis Bilateral (05/19/2025 2:55 PM EST) Anatomical Region Laterality Modality Breast Bilateral Mammography 05/19/2025 2:55 PM EST Narrative 05/23/2025 5:31 PM EST [address] [place] [address] Mammography Report Signed Patient: Kari Alvarado MR#: [id number] : 1960 Acct:[id number] Age/Sex: 64 / F ADM Date: 05/19/25 Loc: HO.MAMMO Attending Dr: Apolinar Koenig MD Ordering Physician: Apolinar Koenig MD Results: 1Negative Date of Service: 05/19/25 Follow Up: 1 Year From Orig ina Mammogram Procedure(s): MM tomosynthesis screening BI Accession Number(s): [id number] cc: Apolinar Koenig MD Reason For Exam: [...] by: Ellie Baron MD 05/23/2025 05:28 PM [facility] Dictated By: Ellie Baron MD Signed By: <Electronically signed by Ellie Baron MD in OV> 05/23/25 1728 DD/ 1455 TD/TT: 05/19/25 1510 Associate Project Manager: Procedure Note Donotuseinterpreter, Image - 05/23/2025 [facility] [address] [place] [address] Mammography Report Signed Patient: Trevor Alvarado#: [id number] : 9Acct:[id number] Age/Sex: 64 / FADM Date: 05/19/25 Loc: HO.MAMMO Attending Dr: Apolinar Koenig MD Ordering Physician: Apolinar Koenigesults: 1Negative Date of Service: 05/19/25Follow Up: 1 Year From Orig inal Mammogram Procedure(s): MM tomosynthesis screening BI Accession Number(s): [id number] cc: Apolinar Koenig MD Reason For Exam: [...] by: Ellie Baron MD 05/23/2025 05:28 PM [facility] Dictated By: Ellie Baron MD Signed By: <Electronically signed by Ellie Baron MD in OV> 05/23/25 1728 DD/ 1455 TD/TT: 05/19/25 1510 Associate Project Manager: Apolinar Koenig MD IMG BI PROCEDURES Final Result * XR Knee 3 Views Right (04/13/2025 3:00 PM EDT) Anatomical Region Laterality Modality Lower Extremities, Knee Right [facility] 04/13/2025 3:00 PM EDT Narrative 04/13/2025 3:35 PM EDT [place] [address] XRay Report Signed Patient: Kari Alvarado MR#: [id number] : 1960 Acct:[id number] Age/Sex: 64 / F ADM Date: 04/13/25 Loc: SHU Attending Dr: Dasia GOODEN Ordering Physician: Dasia Ray Date of Service: 04/13/25 Procedure(s): XR knee RT 3V Accession Number(s): [id number] cc: Dasia Ray; Name,Apolinar HAINES Reason for [...] 04/13/25 1532 DD/ 1500 TD/TT: 04/13/25 1520 Associate Project Manager: Procedure Note Donotuseinterpreter, Image - 04/13/[address] [address] XRay Report Signed Patient: Trevor Alvarado#: [id number] : 9Acct:[id number] Age/Sex: 64 / FADM Date: 04/13/25 Loc: SHU Attending Dr: Dasia GOODEN Ordering Physician: Dasia Ray Date of Service: 04/13/25 Procedure(s): XR knee RT 3V Accession Number(s): [id number] cc: Dasia Ray; Name,Apolinar HAINES Reason for [...] 3V IMPRESSION: Mild osteoarthritis. Electronically signed by: Matthwe Rivero MD 04/13/2025 03:32 PM EDT RP Dictated By: Matthew Rivero MD Signed By: <Electronically signed by Matthew Rivero MD in OV> 04/13/25 1532 DD/ 1500 TD/TT: 04/13/25 1520 Associate Project Manager: us [facility] External Provider IMG XR PROCEDURES Final Result * XR Knee 3 Views Left (04/13/2025 3:00 PM EDT) Anatomical Region Laterality Modality Lower Extremities, Knee Left Radiogra phic Imaging 04/13/2025 3:00 PM EDT Narrative 04/13/2025 3:34 PM EDT [address] [address] XRay Report Signed Patient: Kari Alvarado MR#: [id number] : 1960 Acct:[id number] Age/Sex: 64 / F ADM Date: 04/13/25 Loc: SHU Attending Dr: Dasia GOODEN Ordering Physician: Dasia Ray Date of Service: 04/13/25 Procedure(s): XR knee LT 3V Accession Number(s): [id number] cc: Dasia Ray; Name,Apolinar HAINES Reason for [...] 04/13/25 1531 DD/ 1500 TD/TT: 04/13/25 1520 Associate Project Manager: Procedure Note Donotuseinterpreter, Image - 04/13/[address] [address] XRay Report Signed Patient: Dahlia AlvaradoR#: [id number] : 1960cct:[id number] Age/Sex: 64 / FADM Date: 04/13/25 Loc: HOGREG Attending Dr: Dasia GOODEN Ordering Physician: Dasia Ray Date of Service: 04/13/25 Procedure(s): XR knee LT 3V Accession Number(s): [id number] cc: Dasia Ray; Name,Apolinar HAINES Reason for [...] 04/13/25 1531 DD/ 1500 TD/TT: 04/13/25 1520 Associate Project Manager: [facility] External Provider IMG XR PROCEDURES Final Result * (ABNORMAL) Lipid Panel, Standard (11/04/2024 1:59 PM EDT) Triglycerides 234(H) <150 mg/dL [facility] Comment:Desirable Triglyceri de: less than 150 mg/dLBorderline High Triglyceride 150-199 mg/dLHigh Triglyceride: 200-499 mg/dLVery High Triglyceride: greater than or equal to 5OO mg/dL Cholesterol 230(H) <200 mg/dL [facility] Comment:Desirable Cholestero l: less than 200 mg/dLBorderline High Cholesterol: 200-239 mg/dLHigh Cholesterol: greater than 239 mg/dL LDL Cholesterol Calculated 142(H) <100 mg/dL [facility] Comment:Desirable LDL: less than 100 mg/dLNear Optimal/Above Optimal LDL: 110- 129 mg/dLBorderline High LDL: 130-159 mg/dLHigh LDL: 160-189 mg/dLVery High LDL: greater than or equal to 190 mg/dL HDL Cholesterol 42 >40 mg/dL [facility] Comment:Desirable HDL: great er than 40 mg/dL Note: This HDL assay may give artificially low results in patients with liver disease. Blood Venous blood specimen / Unknown 11/04/2024 1:59 PM EDT 11/04/2024 4:11 PM EDT Apolinar Koenig MD LAB BLOOD ORDERABLES Final Resul t [facility] [address] [place] [phone] * Hm Colonoscopy (08/14/2022 3:12 PM EST) Colonoscopy Normal Normal Narrative Prerna Judd - 08/14/2022 3:12 PM EST Recommended 5 year follow up Historical Provider MD HEALTH MAINTENANCE Final Result * Hm Pap Smear (06/15/2020 12:00 AM EST) Historical Provider MD HEALTH MAINTENANCE Final Result * HPV mRNA E6/E7 (05/07/2018 10:00 AM EST) HPV mRNA E6/E7 Not Detected NOT DETECTED [facility] Comment: This test was performed using the APTIMA(R) HPV Assay ([employer] This assay detects E6/E7 viral messenger RNA (mRNA) from 14 high-risk HPV types (16,18,31,33,35,39,45,51, 52,56,58,59,66,68). For additional information please refer to: http://education.Medichan[employer] Engineering.BeFunky/faq/UGI586l3 (This link is being provided for informational/ educational purposes only.) The analytical performance characteristics of this assay have been determined by [employer] [place], [place]. The modifications have not been cleared or approved by the FDA. This assay has been validated pursuant to the CLIA regulations and is used for clinical purposes. Test Performed by [facility] [employer] [facility], [address] [place], [place] Layo Moss M.D., Ph.D., Director of Laboratories , [facility] [id number] Please note: Effective 03/12/2016, HPV testing will be performed using [employer] APTIMA test which targets mRNA. Detecting mRNA instead of DNA, as in older methods, offers significant improvements in specificity. 05/07/2018 10:0 0 AM EST us Rosanna Puente CNM HISTORICAL/NON ORDERABLE LABS Final Result [facility] [facility] [address] from Last 3 Months or Most Recently Relevant to Health Maintenance Insurance AETNA MEDICARE REPLACEMENT [facility] STANDARD Care Teams Plaster Molder Relationship Specialty Start Date End Date Name, MD Apolinar [address] [place] [phone] PCP - General Family Medicine 07/01/18
--- OUTSIDE RECORDS SUMMARY | 2025-05-24 15:31 | XMS_ITS | Clinical Summary ---
Author Organization [address] [place] [address] Address [address] [place] [address] Phone Care Team Providers Care Kitchen Hand Name Role Phone Name, Apolinar HAINES Primary Care Provider [phone] Allergies Active Allergy Reactions Criticality Noted Date [...] mouth at bedtime. 30 each 5 Active fluticasone-ume clidinium-vilan terol (Trelegy Ellipta) 200-62.5-25 mcg inhaler Inhale 1 puff (200 mcg total) by mouth 1 (one) time each day. Rinse mouth with water after use to reduce aftertaste and incidence of candidiasis. Do not swallow. 1 each 12 5 05/07/20 26 Active Active Problems Problem Noted Date Diagnosed Date COPD (chronic obstructive pu lmonary disease) ([facility] V24, [facility] V28) 01/02/2018 History of Helicobacter pylori infection 018 HTN (hypertension) 07/11/2011 Vitamin D deficiency 05/21/2011 Allergic rhinitis 02/15/2011 Leg cramps, sleep related 02/24/2010 Degenerative arthritis of lumbar spine 0 Anxiety 08/12/2009 Low back pain 05/12/2009 Migraine 06/11/2008 High cholesterol 11/25/2007 Mild persistent asthma 08/15/2007 Resolved Problems Problem Noted Date Diagnosed Date Resolved Date Acute respiratory failure ([facility] V24, [facility] V28) 12/07/2024 12/08/2024 Encounters Date Type Department Care Team Description 05/07/2025 2:15 PM EST Office Visit Pulmonology - [address] [phone] Zac Cerda MD Asthma-COPD overlap syndrome ([facility] V24, [facility] V28) (Primary Dx); Eosinophilia, unspecified type from Last 3 Months Immunizations Immunization Administration Dates Next Due Influenza trivalent, with preservative (Fluzone; Afluria) 6mo and older 04/14/2015,04/06/2014,03/10/2013,2011,03/15/2011,05/12/2010,04/29/2008 Tdap Tetanus diptheria acell ular pertussis (Boostrix; Adacel) 7yo and older 05/14/2011 Surgical History Surgery Date Site/Laterality Comments TUBAL LIGATION PROCEDURE: HISTORICAL TUBAL LIGATION Medical History Medical History Date Comments Unspecified essential hypertension DX:Unspecified essential hypertension Historical Medical DX 08/15/2007 DX:HTN COPD (chronic obstructive pu lmonary disease) ([facility] V24, [facility] V28) 01/02/2018 DX:COPD (chronic o bstructive pulmonary disease) ([facility]) History of Helicobacter pylo ri infection [...] Sign Reading Time Taken Comments Blood Pressure 108/72 05/07/2025 2:25 PM EST Pulse 86 05/07/2025 2:25 PM EST Temperature 36.2 C (97.2 F) 05/07/2025 2:25 PM EST Respiratory Rate 16 05/07/2025 2:25 PM EST Oxygen Saturation 95% 05/07/2025 2:25 PM EST Inhaled Oxygen Concentration - - Weight 79.8 kg (176 lb) 05/07/2025 2:25 PM EST Height 165.1 cm (5' 5 ) 05/07/2025 2:25 PM EST Body Mass Index 29.29 05/07/2025 2:25 PM EST Plan of Treatment Upcoming Encounters Date Type Department Care Team (Late st Contact Info) Description 09/06/2025 2:00 PM EDT Procedure visit Pulmonology [facility] [address] [facility] [address] [place] [phone] 09/06/2025 2:45 PM EDT [facility] [address] [place] [phone] Zac Cerda MD [address] [place] [phone] Health Maintenance Due Date Last Done Comments Breast Cancer Screening 1960 Colorectal Cancer Screening: Colonoscopy 1960 RSV Immunization Adult Patients (1 - Risk 50-74 years 1-dose series) 2008 Medicare Annual Wellness Visit 06/09/2022 Osteoporosis Screening (Bone Density Screening) 06/09/2022 Social Influencers of Health Screening 06/09/2022 Depression Screening 07/01/2024 COVID-19 Vaccine ( season) 2025 05/05/2025, 05/19/2024, 10/15/2023, Additional history exists Falls Risk Assessment 12/08/2025 [...] mmol/L LAB CHEMISTRY METHOD 12/08/2024 7:27 AM [facility] Potassium 4.4 3.5 - 5.5 mmol/L LAB CHEMISTRY METHOD 12/08/2024 7:27 AM [facility] Chloride 104 96 - 110 mmol/L LAB CHEMISTRY METHOD 12/08/2024 7:27 AM [facility] CO2 27 21 - 32 mmol/L LAB CHEMISTRY METHOD 12/08/2024 7:27 AM [facility] Anion Gap 7 3 - 11 LAB CHEMISTRY METHOD 12/08/2024 7:27 AM [facility] Glucose 168(H) 70 - 100 mg/dL LAB CHEMISTRY METHOD [facility] BUN 23 5 - 25 mg/dL LAB CHEMISTRY METHOD 12/08/2024 7:27 AM [facility] Creatinine 0.90 0.50 - 1.10 mg/dL LAB CHEMISTRY METHOD 12/08/2024 7:27 AM [facility] eGFR 71 >=60 mL/min/1. 73m2 LAB CHEMISTRY METHOD 12/08/2024 7:27 AM [facility] Comment:Calculation based on the Chronic Kidney Disease Epidemiology Collaboration (CKD-EPI) equation refit without adjustment for race. BUN/Creatinine Ratio 25.6 LAB CHEMISTRY METHOD 12/08/2024 7:27 AM [facility] Calcium 9.7 8.5 - 10.5 mg/dL LAB CHEMISTRY METHOD 12/08/2024 7:27 AM [facility] Blood Venous blood specimen / Unknown Venipuncture / Unknown 12/08/2024 5:22 AM EDT 12/08/2024 6:31 AM EDT Gladys Jackman NP LAB BLOOD ORDERABLES Fin al Result [facility] [address] [place] [address], * (ABNORMAL) Lipid panel (09/28/2014) Pathologist [facility] LDL/HDL Ratio 4 0 - 4 Triglycerides 142 0 - 150 mg/dL Cholesterol 203(A) 0 - 200 mg/dL HDL 54 >=40 mg/dL LDL Cholesterol 121(A) 0 - 100 mg/dL Blood Venous blood specimen / Unknown Historical Provider LAB BLOOD ORDERABLES Viola l Result * Hepatitis C Screening (02/11/2012) Pathologist [facility] Hepatitis C Screening Abstracted Historical Provider HEALTH MAINTENANCE Final Result from Last 3 Months or Most Recently Relevant to Health Maintenance Insurance AETNA MEDICARE ADVANTAGE Advance Directives * Full [...] currently active code status orders. Care Teams Kitchen Hand Relationship Specialty Start Date End Date Name, MD Apolinar [address] [place], [place] PCP - General 08/14/07
--- OUTSIDE RECORDS SUMMARY | 2025-05-24 15:31 | XMS_ITS | Encounter Summary ---
Author Organization [employer] [facility] Address [address] [place] [address] Care Team Providers Care Alcohol Law Enforcement Agent Name Role Phone Name, Apolinar HAINES Primary Care Provider Unavailabl e Reason for Visit * Reason Comments E-prescribe Rx Request Encounter Details Date Type Department Care Team Description 11/20/2020 Refill Pulmonology - [place] [address] [facility] [address] [place] [phone] Zac Cerda MD [address] [place] [phone] E-prescribe Rx Request Social History Tobacco Use [...] (HCC) documented in this encounter Care Teams Alcohol Law Enforcement Agent Relationship Specialty Start Date End Date Name, MD Apolinar PCP - General 08/14/07 documented as of this encounter
--- OUTSIDE RECORDS SUMMARY | 2025-05-24 15:31 | XMS_ITS | Encounter Summary ---
Author Organization [facility] Address [address] [place] [address] Care Team Providers Care Brass Sorter Name Role Phone Name, Apolinar HAINES Primary Care Provider Unavailabl e Encounter Details Date Type Department Care Team Description 08/12/2012 Antenna Machine Operator Report Medical Records [address] [place] [phone] Rene Hill MD Social History Tobacco Use [...] on filedocumented in this encounter Care Teams Brass Sorter Relationship Specialty Start Date End Date Name, MD Apolinar PCP - General 08/14/07 documented as of this encounter
--- OUTSIDE RECORDS SUMMARY | 2025-05-24 15:31 | XMS_ITS | Encounter Summary ---
Author Organization [employer] Address [address] [facility] 7t [place] [address] Care Team Providers Care Web Development Consultant Name Role Phone Name, Apolinar HAINES Primary Care Provider [phone] Reason for Visit * Reason Onset Date Comments FYI 01/11/2023 Encounter Details Date Type Department Care Team ([facility] st Contact Info) Description 01/11/[address] [facility] [address] [place], [place] [phone] Name, MD Apolinar [address] [place] [address] Social History Tobacco Use Types Packs/Day Years [...] documented as of this encounter Care Teams Web Development Consultant Relationship Specialty Start Date End Date Name, MD Apolinar [address] [place] [address] PCP - General Family Medicine 07/01/18 documented as of this encounter
--- OUTSIDE RECORDS SUMMARY | 2025-05-24 15:31 | XMS_ITS | Encounter Summary ---
Author Organization [employer] Address [address] [facility] [address]t [place] [address] Care Team Providers Care Sanitation Associate Name Role Phone Name, Apolinar HAINES Primary Care Provider [phone] Reason for Visit * Reason Comments Med Refill Encounter Details Date Type Department Care Team ([facility] st Contact Info) Description 06/25/2023 [facility]ill [facility] [address] [place], [place] [phone] Name, MD Apolinar [address] [place] [address] Asthma, unspecified asthma severity, unspecified whether complicated, [...] documented as of this encounter Care Teams Sanitation Associate Relationship Specialty Start Date End Date Name, MD Apolinar [address] [place] [address] PCP - General Family Medicine 07/01/18 documented as of this encounter
--- OUTSIDE RECORDS SUMMARY | 2025-05-24 15:31 | XMS_ITS | Encounter Summary ---
Author Organization [employer] Address [address] [facility] 7t [place] [address] Care Team Providers Care Tree Warden Name Role Phone Name, Apolinar HAINES Primary Care Provider [phone] Encounter Details Date Type Department Care Team (Late st Contact Info) Description 07/04/2022 Orders Only [facility] [address] [place] [address] Debbi Alas LPN Social History Tobacco Use [...] AM EDT) Trichomonas DNA Probe Negative Negative [facility] Gardnerella DNA Probe Negative Negative [facility] Ashley DNA Probe Negative Negative [facility] 10/25/2022 11:3 2 AM EDT 10/25/2022 3:51 PM EDT [facility] Exter nal Provider LAB BODY FLUIDS AND STOOLS ORDERABLES Final Result [facility] [address] [place] [phone] documented in this encounter Visit Diagnoses Not on filedocumented in this encounter Care Teams Tree Warden Relationship Specialty Start Date End Date Name, MD Apolinar [address] [place] [address] PCP - General Family Medicine 07/01/18 documented as of this encounter
--- OUTSIDE RECORDS SUMMARY | 2025-05-24 15:31 | XMS_ITS | Encounter Summary ---
Author Organization [employer] Address [address] [facility] [address] [place] [address] Care Team Providers Care Sofa Inspector Name Role Phone Name, Apolinar HAINES Primary Care Provider [phone] Reason for Visit * Reason Comments Med Refill Encounter Details Date Type Department Care Team (Late st Contact Info) Description 06/05/2022 Refill [facility] [address] [place] [id number] Name, MD Apolinar [address] [place] [id number] Social History Tobacco Use Types Packs/Day Years [...] on filedocumented in this encounter Care Teams Sofa Inspector Relationship Specialty Start Date End Date Name, MD Apolinar [address] [place] [phone] PCP - General Family Medicine 07/01/18 documented as of this encounter
--- OUTSIDE RECORDS SUMMARY | 2025-05-24 15:32 | XMS_ITS | Encounter Summary ---
Author Organization [facility] Address [address] [place] [address] Care Team Providers Care Sole Ruffer Name Role Phone Apolinar Koenig MD Primary Care Provider Unavailabl e Reason for Visit * Reason Onset Date Comments er follow up 04/13/2014 Encounter Details Date Type Department Care Team Description 04/13/2014 Telephone Adult Medicine [address] [id number] NameApolinar MD er follow up Social History Tobacco Use Types Packs/Day Years [...] encounter Miscellaneous Notes * Telephone Encounter - Monique Matias M.A. - 04/14/2014 9:10 AM EDT Notes given to Flora jernigan appt * Telephone Encounter - Sophie Rico - 04/13/2014 1:40 PM EDT ER follow-up appointment booked tbd Triage If ER follow up, can be booked with mid-level or MD. If hospital admission follow up MUST be booked with a physician tbd Provider visit is scheduled with: Apolinar Koenig M.D. Hospital patient was treated at: [facility] Date of visit: 04/10/14 Was this only an ER visit or was the patient admitted to the hospital? ER visit onlyER visit only If patient was admitted what was the date of discharge? N/A Reason/diagnosis for visit or stay: chest pain Was visit or stay related to an injury? NO If yes, what was the date of injury (DOI)? N/A If yes, was the injury due to N/A Tests performed: Lab: YES X-ray: YES EKG: YES Other tests. If yes, what?; N/A documented in this encounter Plan of Treatment Not on file documented as of this encounter Visit Diagnoses Not on filedocumented in this encounter Care Teams Sole Ruffer Relationship Specialty Start Date End Date Name, MD Apolinar PCP - General 08/14/07 documented as of this encounter
--- OUTSIDE RECORDS SUMMARY | 2025-05-24 15:32 | XMS_ITS | Encounter Summary ---
Author Organization [facility] Address [address] [place] [address] Care Team Providers Care Wheel Aligner Name Role Phone Name, Apolinar HAINES Primary Care Provider Unavailabl e Encounter Details Date Type Department Care Team Description 10/18/2014 Bonding Molder Report Medical Records [address] [place] [id number] Kvng Daniels MD Social History Tobacco Use [...] on filedocumented in this encounter Care Teams Wheel Aligner Relationship Specialty Start Date End Date Name, MD Apolinar PCP - General 08/14/07 documented as of this encounter
--- OUTSIDE RECORDS SUMMARY | 2025-05-24 15:32 | XMS_ITS | Encounter Summary ---
Author Organization [facility] Address [address] [place] [address] Care Team Providers Care Steam And Gas Turbine Assembler Name Role Phone Name, Apolinar HAINES Primary Care Provider Unavailabl e Encounter Details Date Type Department Care Team Description 09/10/2013 Police Commanding Officer Report Medical Records [address] [place] [id number] Rene Hill MD Social History Tobacco Use [...] on filedocumented in this encounter Care Teams Steam And Gas Turbine Assembler Relationship Specialty Start Date End Date Name, MD Apolinar PCP - General 08/14/07 documented as of this encounter
== END 2025-05-24 11:41 | disposition home or self-care (01) ==
LOC: HO.MRI 11:40
PROVIDERS: PCP Internal Medicine Geriatric Medicine; Visit Provider Nurse Practitioner Family
DX: M51.369 Other intervertebral disc degeneration, lumbar region without mention of lumbar back pain or lower extremity pain (principal); M43.16 Spondylolisthesis, lumbar region; M47.817 Spondylosis without myelopathy or radiculopathy, lumbosacral region; G89.29 Other chronic pain; M54.41 Lumbago with sciatica, right side
CPT/HCPCS: 72148

== ENCOUNTER → 2025-05-24 11:40 | Outpatient (BNV) | payer MEDICARE, SELFPAY | PROVIDERS: PCP Internal Medicine Geriatric Medicine; Visit Provider Radiology Diagnostic Radiology | DX: M51.369 Other intervertebral disc degeneration, lumbar region without mention of lumbar back pain or lower extremity pain (principal); M99.63 Osseous and subluxation stenosis of intervertebral foramina of lumbar region | CPT/HCPCS: 72148 ==